=== PATIENT | female | born 1965 | race Caucasian/White ===

== ENCOUNTER 2016-06-16 13:42 | Inpatient (IN) | payer MEDICAID ==
[~2016-06-16] VITALS: Ht 162.6 cm; Wt 85.7 kg
[~2016-06-16 13:42] MED LIST: CHLO.12%30 SWISH-SPIT; CLIN150 PO; IBUP800T23 PO; MMW SWISH-SPIT
[2016-06-16 13:49] VITALS: BP 114/79; PULSE 97; RESP 16; TEMP 98.4; O2SAT 98
[2016-06-16] MEDS ORDERED: REGL10TA5 PO (14:05)
--- NOTE | 2016-06-16 14:09 | PD ---
HPI Chief Complaint: GI Complaint Time Seen by Provider: 13:52 Travel History International Travel<30 days: No Contact w/Intl Traveler<30days: No Traveled to known affect area: No History of Present Illness HPI The patient is a 50-year-old female who presents emergency department for constipation and blood in her stool. The patient states her symptoms started on Tuesday with nausea, vomiting, and one episode of hematemesis. The patient states she was evaluated at [facility] in [place], had laboratory evaluation which revealed a hemoglobin of "9 something ", the patient was discharged home and nausea medications. The patient was advised to follow-up with her primary physician. The patient does have a history of cirrhosis secondary to hepatitis C, underwent treatment for hepatitis C by her previous business machine operator, Dr. Nelson. The patient states she does have cirrhosis, does drink alcohol occasionally. She complains of decreased bowel movements over the last several days with a small moderate bright red blood in her stool. The patient also states she has a dry nonproductive cough and cold and flu symptoms over the last several days without any fever, chills, or sweats. The patient's symptoms are moderate, possibly exacerbated by history of cirrhosis, and there are no current alleviating factors. PFSH Past Medical History Anemia: Yes Arthritis: No Asthma: No Autoimmune Disease: No Blood Disorders: Yes (Thrombocytopenia) Anxiety: Yes Depression: Yes Heart Rhythm Problems: No Cancer: No Cardiovascular Problems: No High Cholesterol: No Chemotherapy: No Chest Pain: No Congestive Heart Failure: No Cirrhosis: Yes COPD: No Cerebrovascular Accident: No Diabetes: No Diminished Hearing: No Endocrine: No Gastrointestinal Disorders: Yes (Enlarged spleen, GI BLEED) GERD: Yes Glaucoma: No Genitourinary: Yes (Frequent UTI's) Headaches: Yes Hepatitis: Yes (C- tx w/ Nathalia) Hiatal Hernia: No Hypertension: Yes (During ) Immune Disorder: No Implanted Vascular Access Dvce: No Kidney Stones: Yes Musculoskeletal: Yes ("Injury" low back) Neurologic: No Psychiatric: Yes (Bipolar) Reproductive: No Respiratory: Yes (SMOKES 1/2 PPD) Immunizations Current: No Migraines: Yes Myocardial Infarction: No Radiation Therapy: Yes Renal Failure: No Seizures: No Sickle Cell Disease: No Sleep Apnea: No Thyroid Disease: No Ulcer: No PNEUMOCCOCAL Vaccine (Year): 1 ?: Not LMP: tubal Menopausal: Yes : 2 Tubal Ligation: Yes Past Surgical History Abdominal Surgery: Yes (CHOLECYSTECTOMY 2010) AICD: No Appendectomy: No Arteriovenous Shunt: No Cardiac Surgery: No Section: Yes (X's 2) Cholecystectomy: Yes Ear Surgery: No Endocrine Surgery: No Eye Surgery: No Genitourinary Surgery: No Gynecologic Surgery: Yes (C SECTION X2, TUBAL LIGATION) Insulin Pump: No Joint Replacement: No Neurologic Surgery: No Oral Surgery: Yes ([place] teeth) Pacemaker: No Thoracic Surgery: No Other Surgery: Yes (Banding for esophageal varices) Social History Alcohol Use: No (FORMER) Tobacco Use: Yes (1/2PPD) Substance Use: No (DENIES) Allergies-Medications (Allergen,Severity, Reaction): Coded Allergies: Penicillin (Verified Allergy, Severe, FEVER, 06/16/16) *MDRO Multi-Drug Resistant Organism (Unverified Adverse Reaction, Unknown , 06/16/16) MRSA Reported Meds & Prescriptions Reported Meds & Active Scripts Active Reported Reglan (Metoclopramide HCl) 10 Mg Tab 10 Mg PO QID Review of Systems Except as stated in HPI: all other systems reviewed are Neg General / Constitutional: No: Fever HENT: Positive: Congestion Cardiovascular: No: Chest Pain or Discomfort Respiratory: Positive: Cough, No: Shortness of Breath Gastrointestinal: Positive: Nausea, Vomiting (had vomiting on Tuesday which has resolved), Abdominal Pain, Hematemesis (once on Tuesday), Hematochezia, Constipation, Changes in Bowel Habits Musculoskeletal: No: Weakness Neurologic: No: Dizziness Physical Exam Narrative GENERAL: Awake, alert, nontoxic-appearing 50-year-old female who appears her stated age and is in no acute respiratory distress. SKIN: Warm and dry. HEAD: Atraumatic. Normocephalic. EYES: Pupils equal and round. Left subconjunctival hemorrhage noted. ENT: No nasal bleeding or discharge. Mucous membranes pink and moist. NECK: Trachea midline. No JVD. CARDIOVASCULAR: Regular rate and rhythm. No murmur appreciated. Heart rate in the 80s. RESPIRATORY: No accessory muscle use. Clear to auscultation. Breath sounds equal bilaterally. GASTROINTESTINAL: Abdomen soft, non-tender, nondistended. No rebound tenderness. Rectal: The exam was performed in the presence of a female nurse. No visible external hemorrhoids. No gross blood on digital exam, however, guaiac positive. MUSCULOSKELETAL: No obvious deformities. No clubbing. No cyanosis. No edema. NEUROLOGICAL: Awake and alert. No obvious cranial nerve deficits. Motor grossly within normal limits. Normal speech. PSYCHIATRIC: Appropriate mood and affect; insight and judgment normal. Data Data Last Documented VS Vital Signs Date Time Temp Pulse Resp B/P Pulse Ox O2 Delivery O2 Flow Rate FiO2 06/16/16 15:20 83 16 137/72 99 Room Air 06/16/16 13:49 98.4 Orders Complete Blood Count With Diff (06/16/16 14:02) Comprehensive Metabolic Panel (06/16/16 14:02) Prothrombin Time / Inr (Pt) (06/16/16 14:02) Act Partial Throm Time (Ptt) (06/16/16 14:02) Abdomen, Flat & Upright (06/16/16 ) Iv Access Insert/Monitor (06/16/16 14:02) Ecg Monitoring (06/16/16 14:02) Oximetry (06/16/16 14:02) Ondansetron Inj (Zofran Inj) (06/16/16 14:15) Sodium Chloride 0.9% Flush (Ns Flush) (06/16/16 14:15) Type And Screen (06/16/16 14:57) Pantoprazole Inj (Protonix Inj) (06/16/16 15:00) Consult Gastroenterology (06/16/16 ) Ns + Kcl 20 Meq Inj (Ns + Kcl 20 Meq Inj (06/16/16 15:15) Pantoprazole Inj (Protonix Inj) (06/16/16 16:30) (Hub Use Only)Inp Phy Cons/Ref (06/16/16 ) Admit Order (Ed Use Only) (06/16/16 15:35) Labs Laboratory Tests Test 06/16/16 14:25 White Blood Count 2.0 TH/MM3 Red Blood Count 3.66 MIL/MM3 Hemoglobin 8.3 GM/DL Hematocrit 25.7 % Mean Corpuscular Volume 70.2 FL Mean Corpuscular Hemoglobin 22.7 PG Mean Corpuscular Hemoglobin 32.4 % Concent Red Cell Distribution Width 19.3 % Platelet Count 66 TH/MM3 Mean Platelet Volume 9.6 FL Neutrophils (%) (Auto) 57.0 % Lymphocytes (%) (Auto) 20.7 % Monocytes (%) (Auto) 16.2 % Eosinophils (%) (Auto) 4.1 % Basophils (%) (Auto) 2.0 % Neutrophils # (Auto) 1.2 TH/MM3 Lymphocytes # (Auto) 0.4 TH/MM3 Monocytes # (Auto) 0.3 TH/MM3 Eosinophils # (Auto) 0.1 TH/MM3 Basophils # (Auto) 0.0 TH/MM3 CBC Comment AUTO DIFF Differential Total Cells 100 Counted Neutrophils % (Manual) 65 % Lymphocytes % 23 % Monocytes % 9 % Eosinophils % 2 % Basophils % 1 % Neutrophils # (Manual) 1.3 TH/MM3 Differential Comment FINAL DIFF MANUAL Platelet Estimate LOW Platelet Morphology Comment NORMAL Prothrombin Time 11.7 SEC Prothromb Time International 1.1 RATIO Ratio Activated Partial 28.7 SEC Thromboplast Time Sodium Level 141 MEQ/L Potassium Level 4.0 MEQ/L Chloride Level 110 MEQ/L Carbon Dioxide Level 21.8 MEQ/L Anion Gap 9 MEQ/L Blood Urea Nitrogen 11 MG/DL Creatinine 0.64 MG/DL Estimat Glomerular Filtration 98 ML/MIN Rate Random Glucose 107 MG/DL Calcium Level 7.7 MG/DL Total Bilirubin 0.5 MG/DL Aspartate Amino Transf 63 U/L (AST/SGOT) Alanine Aminotransferase 43 U/L (ALT/SGPT) Alkaline Phosphatase 87 U/L Total Protein 6.7 GM/DL Albumin 2.8 GM/DL [facility] Medical Decision Making Medical Screen Exam Complete: Yes Emergency Medical Condition: Yes Medical Record Reviewed: Yes Interpretation(s) Laboratory Tests Test 06/16/16 14:25 White Blood Count 2.0 TH/MM3 Red Blood Count 3.66 MIL/MM3 Hemoglobin 8.3 GM/DL Hematocrit 25.7 % Mean Corpuscular Volume 70.2 FL Mean Corpuscular Hemoglobin 22.7 PG Mean Corpuscular Hemoglobin 32.4 % Concent Red Cell Distribution Width 19.3 % Platelet Count 66 TH/MM3 Mean Platelet Volume 9.6 FL Neutrophils (%) (Auto) 57.0 % Lymphocytes (%) (Auto) 20.7 % Monocytes (%) (Auto) 16.2 % Eosinophils (%) (Auto) 4.1 % Basophils (%) (Auto) 2.0 % Neutrophils # (Auto) 1.2 TH/MM3 Lymphocytes # (Auto) 0.4 TH/MM3 Monocytes # (Auto) 0.3 TH/MM3 Eosinophils # (Auto) 0.1 TH/MM3 Basophils # (Auto) 0.0 TH/MM3 CBC Comment AUTO DIFF Prothrombin Time 11.7 SEC Prothromb Time International 1.1 RATIO Ratio Activated Partial 28.7 SEC Thromboplast Time Sodium Level 141 MEQ/L Potassium Level 4.0 MEQ/L Chloride Level 110 MEQ/L Carbon Dioxide Level 21.8 MEQ/L Anion Gap 9 MEQ/L Blood Urea Nitrogen 11 MG/DL Creatinine 0.64 MG/DL Estimat Glomerular Filtration 98 ML/MIN Rate Random Glucose 107 MG/DL Calcium Level 7.7 MG/DL Total Bilirubin 0.5 MG/DL Aspartate Amino Transf 63 U/L (AST/SGOT) Alanine Aminotransferase 43 U/L (ALT/SGPT) Alkaline Phosphatase 87 U/L Total Protein 6.7 GM/DL Albumin 2.8 GM/DL Last Impressions Abdomen X-Ray 06/16/16 0000 Signed Impressions: Service Date/Time: Thursday, June 16, 2016 14:12 - CONCLUSION: Benign abdomen with evidence of prior cholecystectomy and splenomegaly Richie Foster MD Differential Diagnosis Differential diagnosis includes upper GI bleed, lower GI bleed, diverticulosis, coagulopathy, internal hemorrhoids, external hemorrhoids, fissure, constipation. Narrative Course IV was established, labs were drawn and sent, and the patient was placed on cardiac telemetry monitoring and continuous pulse oximetry monitoring. The patient was administered Zofran intravenously. Flat and upright x-ray was ordered. I reviewed the patient's EMR, she does have a history of significant anemia in the past requiring transfusion, therefore, CBC was sent to lab. CBC reveals hemoglobin of 8.3 with MCV of 70, platelets are low at 66, white count is low at 2.0. May be secondary to cirrhosisend-stage liver disease, coags are normal. Therefore, type and screen was sent to lab. The patient states her hemoglobin was greater than 9 on Tuesday, is now 8.3 with active bleeding. Therefore, the on-call business machine operator was paged at 3:01 PM. The patient does have a history of varicosities with bleeds and previous banding in the past , EMR reveals Dr. Abdul was last patient to perform an anoscopy according to records at [facility]. The patient does state she underwent endoscopy and February 2016 at [facility], does not think she was banded at that time. The patient cannot recall the name of the business machine operator at that time. The patient's primary physician is Dr. Zheng Suarez, therefore, [facility] hour [facility]. I discussed the patient with Drs. Torres who agrees the patient should be admitted, and also requested the patient be transported to [facility] as the patient most likely will need endoscopy with her history of cirrhosis and varices with GI bleed. HemaPrompt Point of Care Internal Pos. & Neg. Controls: Passed Fecal Specimen Occult Blood: Positive Physician Communication Physician Communication [facility]. I discussed the patient Dr. Silvestre who agrees with admission. Diagnosis Primary Impression: GI bleed Qualified Code: K92.0 - Gastrointestinal hemorrhage with hematemesis Additional Impressions: Microcytic anemia Esophageal and gastric varicose veins Admitting Information Admitting Physician Requests: Admit Condition: Stable Mark Cruz MD Jun 16, 2016 14:09
[2016-06-16] MEDS ORDERED: SODIUM CHLORIDE 0.9% FLUSH 5 ML FLUSH IVF PRN (14:15)
[2016-06-16] MEDS ORDERED: ONDANSETRON HCL 4 MG/2 ML VIAL IVP ONE (14:15)
--- NOTE | 2016-06-16 14:22 | RADHPO ---
EXAM DATE/TIME: 06/16/2016 14:12 [facility] COMPARISON: CT ABDOMEN & PELVIS W CONTRAST, February 17, 2012, 21:34. INDICATIONS : Constipation and rectal bleeding. MEDICAL HISTORY : None. SURGICAL HISTORY : Cholecystectomy. section. ENCOUNTER: Initial ACUITY: 4 - 6 days PAIN SCORE: 6/10 LOCATION: Bilateral Abdominal FINDINGS: Supine and upright views of the abdomen were performed. The abdominal bowel gas pattern is normal. No air fluid levels are seen. No abnormal masses, calcifications, with prominence of the spleen cons istent with splenomegaly. The visualized lower lungs are clear. No evidence of free intraperitoneal gas. The osseous structures are unremarkable. Surgical clips in the right upper quadrant prior chol ecystectomy. CONCLUSION: Benign abdomen with evidence of prior cholecystectomy and splenomegaly Richie Foster MD on June 16, 2016 at 14:20 Board Certified Radiologist. This report was verified electronically.
[2016-06-16 14:25] VITALS: O2SAT 98
[2016-06-16 14:32] LABS: AUTOMATED NEUTROPHIL # 1.2 TH/MM3 (1.8-7.7); EOSINOPHIL # 0.1 TH/MM3 (0-0.4); EOSINOPHIL % 4.1 % (0.0-4.0); HEMATOCRIT 25.7 % (35.0-46.0); HEMO FLAGS AUTO DIFF; LYMPH % 20.7 % (9.0-44.0); LYMPHOCYTE # 0.4 TH/MM3 (1.0-4.8); MEAN CELL VOLUME 70.2 FL (80.0-100.0); MEAN CORPUSCULAR HEMOGLOBIN 22.7 PG (27.0-34.0); MEAN CORPUSCULAR HGB CONC 32.4 % (32.0-36.0); MONO % 16.2 % (0.0-8.0); PLATELET COUNT 66 TH/MM3 (150-450); RED BLOOD COUNT 3.66 MIL/MM3 (4.00-5.30); RED CELL DISTRIBUTION WIDTH 19.3 % (11.6-17.2)
[2016-06-16 14:39] LABS: CHLORIDE 110 MEQ/L (98-107); SODIUM (NA) 141 MEQ/L (136-145)
[2016-06-16 14:43] LABS: ANION GAP 9 MEQ/L (5-15); APTT (PATIENT) 28.7 SEC (24.3-30.1); BICARBONATE 21.8 MEQ/L (21.0-32.0); BLOOD UREA NITROGEN 11 MG/DL (7-18); INTERNATIONAL NORMALIZED RATIO 1.1 RATIO; PROTHROMBIN TIME - PATIENT 11.7 SEC (9.8-11.6)
[2016-06-16 14:46] LABS: ALT (GPT) 43 U/L (10-53); AST (GOT) 63 U/L (15-37); GLOMERULAR FILTRATION RATE 98 ML/MIN (>89)
[2016-06-16 14:47] LABS: TOTAL BILIRUBIN ADULT 0.5 MG/DL (0.2-1.0)
[2016-06-16 14:49] LABS: ALKALINE PHOSPHATASE 87 U/L (45-117)
[2016-06-16] MEDS ORDERED: PANTOPRAZOLE SODIUM 40 MG VIAL IV PUSH ONE (15:00)
[2016-06-16 15:02] LABS: BASOPHILS 1 % (0-2); EOSINOPHILS 2 % (0-4); NEUTROPHIL # MANUAL DIFF 1.3 TH/MM3 (1.8-7.7); POLYS (SEG NEUTROPHILS) 65 % (16-70); WBC DIFF SAMPLE 100
[2016-06-16 15:04] LABS: PLATELET ESTIMATE SMEAR LOW (NORMAL); PLATELET MORPHOLOGY NORMAL (NORMAL); SCAN/DIFF FINAL DIFF MANUAL
[2016-06-16 15:20] VITALS: BP 137/72; PULSE 83; RESP 16; O2SAT 99
[2016-06-16] MEDS: NS + KCL 20 MEQ INJ 1,000 ML IV SCH (15:26)
[2016-06-16] MEDS ORDERED: ONDANSETRON HCL 4 MG/2 ML VIAL IV PRN (15:45)
[2016-06-16] MEDS ORDERED: SODIUM CHLORIDE 0.9% FLUSH 5 ML FLUSH FLUSH PRN (15:45)
[2016-06-16] MEDS ORDERED: PANTOPRAZOLE INJ 80 MG in SODIUM CHLORIDE 0.9% INJ 100 ML IV SCH (16:30)
[2016-06-16 17:06] LABS: HEMATOCRIT 24.8 % (35.0-46.0)
[2016-06-16 17:09] LABS: REVIEW FLAG FINAL
[2016-06-16] MEDS: SODIUM CHLORIDE 0.9% FLUSH 5 ML FLUSH FLUSH SCH (19:32)
[2016-06-16 20:00] VITALS: BP 118/65; PULSE 84; RESP 18; TEMP 98; O2SAT 99
[2016-06-16] MEDS: MORPHINE SULFATE 4 MG/ML INJ IV PUSH PRN ×2 (20:08→23:04)
--- NOTE | 2016-06-16 22:05 | HHI.HP ---
[facility] Rossy Suarez MD Admission Diagnosis GI bleed, microcytic anemia, esophageal varices Diagnoses: Chief Complaint: bleeding Travel History International Travel<30 Days: No Contact w/Intl Traveler <30 Da: No Traveled to Known Affected Are: No History of Present Illness History from patient, ER physician notes, and review of medical records. Patient reported that starting Tuesday, she was feeling constipated. This was then followed by feeling of some upset stomach which led to her having nausea and vomiting on Tuesday. She states that she has history of variceal bleeds and she knew immediately when she vomited and that she was having blood in her vomitus. It was somewhat brownish reddish in color. Not exactly coffee ground color. She presented to [facility] at that time and was discharged from the ER because her hemoglobin was apparently stable. She then continued to have this feeling of vomiting and upset stomach. She states she knew the symptoms that has because she was having the cirrhosis with variceal bleed previously for several times. The day before yesterday, Tuesday, she started taking lactulose because she was not moving her bowels and she was also starting to feel somewhat drowsy and having trouble thinking and making sentences. She states she therefore started getting bowel movement on that day. Her bowel movement was black in color. She then had a few more episodes. The patient was in her bathroom actually at the time of my arrival to her bedside. She did move her bowels at that time and she did have black stool during her bowel movement. Although it is somewhat small. Patient states Review of Systems Other 12 point ROS done and negative apart from what is mentioned in HPI Past Family Social History Past Medical History Hepatitis Cwas treated. Stated that she had to stop her treatment in the middle due to being tested positive for marijuana. Liver cirrhosissecondary to above Varices/portal hypertension History of hepatic encephalopathy Past Surgical History EGDs and colonoscopies Reported Medications Patient's medications listed in EMR and is reviewed. Allergies: Coded Allergies: Penicillin (Verified Allergy, Severe, FEVER, 06/16/16) *MDRO Multi-Drug Resistant Organism (Unverified Adverse Reaction, Unknown , 06/16/16) MRSA Family History Denies family history of any medical issues. Social History Stated she quit smoking a few months ago but picked it up again. Currently smokes about 10 cigarettes a day. Denies any alcohol abuse. Currently drinks about 2 beers every twice a week. Physical Exam Vital Signs Vital Signs Date Time Temp Pulse Resp B/P Pulse Ox O2 Delivery O2 Flow Rate FiO2 06/16/16 20:00 98.0 84 18 118/65 99 06/16/16 15:20 83 16 137/72 99 Room Air 06/16/16 14:25 98 Room Air 06/16/16 13:49 98.4 97 16 114/79 98 Physical Exam GENERAL: This is a well-nourished, well-developed patient, in no apparent distress. SKIN: No rashes, ecchymoses or lesions. Cool and dry. HEAD: Atraumatic. Normocephalic. No temporal or scalp tenderness. EYES: PNo scleral icterus. No injection or drainage. ENT: Nose without bleeding, purulent drainage or septal hematoma. Airway patent. NECK: Trachea midline. No JVD CARDIOVASCULAR: Regular rate and rhythm without murmurs, gallops, or rubs. RESPIRATORY: Clear to auscultation. Breath sounds equal bilaterally. No wheezes , rales, or rhonchi. GASTROINTESTINAL: Abdomen soft, non-tender, nondistended. No guarding. MUSCULOSKELETAL: no calf asymmetry or edema NEUROLOGICAL: Awake and alert.Motor and sensory grossly within normal limits.Normal speech. Laboratory Laboratory Tests Test 06/16/16 06/16/16 14:25 17:00 White Blood Count 2.0 Red Blood Count 3.66 Hemoglobin 8.3 8.1 Hematocrit 25.7 24.8 Mean Corpuscular Volume 70.2 Mean Corpuscular Hemoglobin 22.7 Mean Corpuscular Hemoglobin 32.4 Concent Red Cell Distribution Width 19.3 Platelet Count 66 Mean Platelet Volume 9.6 Neutrophils (%) (Auto) 57.0 Lymphocytes (%) (Auto) 20.7 Monocytes (%) (Auto) 16.2 Eosinophils (%) (Auto) 4.1 Basophils (%) (Auto) 2.0 Neutrophils # (Auto) 1.2 Lymphocytes # (Auto) 0.4 Monocytes # (Auto) 0.3 Eosinophils # (Auto) 0.1 Basophils # (Auto) 0.0 CBC Comment AUTO DIFF Differential Total Cells 100 Counted Neutrophils % (Manual) 65 Lymphocytes % 23 Monocytes % 9 Eosinophils % 2 Basophils % 1 Neutrophils # (Manual) 1.3 Differential Comment FINAL DIFF MANUAL Platelet Estimate LOW Platelet Morphology Comment NORMAL Prothrombin Time 11.7 Prothromb Time International 1.1 Ratio Activated Partial 28.7 Thromboplast Time Sodium Level 141 Potassium Level 4.0 Chloride Level 110 Carbon Dioxide Level 21.8 Anion Gap 9 Blood Urea Nitrogen 11 Creatinine 0.64 Estimat Glomerular Filtration 98 Rate Random Glucose 107 Calcium Level 7.7 Total Bilirubin 0.5 Aspartate Amino Transf 63 (AST/SGOT) Alanine Aminotransferase 43 (ALT/SGPT) Alkaline Phosphatase 87 Total Protein 6.7 Albumin 2.8 Blood Type A POSITIVE Antibody Screen NEGATIVE Result Diagram: 06/16/16 1700 06/16/16 1425 Imaging Last 48 hours Impressions Abdomen X-Ray 06/16/16 0000 Signed Impressions: Service Date/Time: Thursday, June 16, 2016 14:12 - CONCLUSION: Benign abdomen with evidence of prior cholecystectomy and splenomegaly Richie Foster MD Assessment and Plan Assessment and Plan Impression: Upper GI bleedlikely variceal bleed Symptomatic anemia Plan: Serial hemoglobin and hematocrit. Although hemoglobin is at 8.1, patient baseline is around 11-13. Therefore transfused 2 units of PRBC now. GI consult. Start patient on rifaximin since she is also complaining of mental confusion and difficulty concentration. She states lactulose is not effective for her. But that usually rifaximin works. Start her back on her home medications which include beta moe, and pain medicine. Discussed Condition With Patient, patient's nurse Physician Certification 2 Midnight Certification Type: Admission for Inpatient Services Order for Inpatient Services The services are ordered in accordance with Medicare regulations or non- Medicare payer requirements, as applicable. In the case of services not specified as inpatient-only, they are appropriately provided as inpatient services in accordance with the 2-midnight benchmark. Estimated LOS (days): 2 days is the estimated time the patient will need to remain in the hospital, assuming treatment plan goals are met and no additional complications. Post-Hospital Plan: Home Health Julieth Lopez MD Jun 16, 2016 22:05
[2016-06-16] MEDS ORDERED: OCTREOTIDE INJ 50 MCG/ML AMP IV ONE (22:15)
[2016-06-17] VITALS (10 sets, daily range): BP systolic 118–151; BP diastolic 67–91; PULSE 61–103; RESP 16–20; TEMP 96.2–99.5; O2SAT 95–100
[2016-06-17] MEDS: PANTOPRAZOLE INJ 80 MG in SODIUM CHLORIDE 0.9% INJ 100 ML IV SCH ×3 (00:05→22:00)
[2016-06-17] MEDS: OCTREOTIDE INJ 500 MCG in SODIUM CHLORID 0.9% 500 ML INJ 499.5 ML IV SCH ×3 (00:05→20:15)
[2016-06-17 01:17] LABS: HEMATOCRIT 30.1 % (35.0-46.0)
[2016-06-17 01:19] LABS: REVIEW FLAG FINAL
[2016-06-17] MEDS: MORPHINE SULFATE 4 MG/ML INJ IV PUSH PRN ×7 (01:52→20:36)
[2016-06-17] MEDS: NS + KCL 20 MEQ INJ 1,000 ML IV SCH ×2 (03:53→17:18)
[2016-06-17] MEDS: RIFAXIMIN 200 MG TAB PO SCH ×3 (05:00→22:01)
[2016-06-17] MEDS: PROPRANOLOL HCL 10 MG TAB PO SCH ×3 (05:00→22:01)
[2016-06-17 08:09] LABS: HEMATOCRIT 28.9 % (35.0-46.0)
[2016-06-17] MEDS: SODIUM CHLORIDE 0.9% FLUSH 5 ML FLUSH FLUSH SCH ×2 (09:00→20:34)
[2016-06-17 11:28] LABS: HEMATOCRIT 29.5 % (35.0-46.0)
[2016-06-17 11:30] LABS: REVIEW FLAG FINAL
--- NOTE | 2016-06-17 12:29 | PD.CONS ---
HPI History of Present Illness This is a 50 year old female patient with a hx of Hepatitis C, Liver cirrhosis, splenomegaly, alcohol abuse, esophageal varices, gastroparesis, and chronic anemia who came to the emergency room for evaluation of GI bleeding. The patient reports that she had an upper respiratory infection over the weekend and had a severe headache and therefore went to [facility] for evaluation and treatment. She reports that she was evaluated in the ER and while she was in the hospital had an episode of hematemesis consisting of a very small amount of dark emesis. She reports that they checked her blood work and was stable and therefore she was discharged home. She reports that she continued to have the headache and therefore took 6 ibuprofen and was having abdominal discomfort from constipation, stating that she had not had a bowel movement in 5 days. On Tuesday she took a dose of lactulose and reports that she had a small amount of black tarry stool. She reports that she return to [facility] complaining of GI bleeding, better hemoglobin remained stable and therefore she was discharged home from the ER. She has not had any vomiting since Tuesday while she was in the ER and reports that she has not had a bowel movement since Tuesday. She does have constant abdominal pain in her epigastric area that radiates to the right upper quadrant that she describes as a constant dull ache. This is aggravated by any by po mouth intake, but also states that it is made worse by no by mouth intake. She states she is having significant discomfort right now because she has not had anything to eat since yesterday and is requesting a diet. She reports that she cannot move her bowels until she has a bowel movement. She is not taking any regular GI meds at home. She tells me that she just switched doctors and had an appointment today to see him to get back on her medications but has not had a chance to do so yet. She continues to drink alcohol and reports that she last had alcohol about 2 weeks ago. She has been seen by our practice in the past and was started on Harvoni for her hepatitis C in 2014, but was taken off of this when her drug screen came back positive for cocaine. Her last EGD was (04/03/15) and this revealed esophagitis and gastritis. Pathology revealed mild acute duodenitis with focal villous blunting in regenerative epithelial changes negative for H. pylori mild chronic gastritis Colonoscopy (08/08/14) revealed diverticulosis in sigmoid and descending colon, diminutive polyp hepatic flexure, 6 mm cold biopsy with complete removal was performed retroflexed views revealed internal hemorrhoids prep was good. Pathology revealed a tubular adenoma (Dianne Whittaker) PFSH Past Medical History Liver cirrhosis secondary to alcohol abuse and hepatitis C Chronic hepatitis C (patient was started on Harvoni, that was stopped after testing positive for cocaine) Esophageal varices Gastroparesis Chronic anemia Pancytopenia Splenomegaly Gastritis and esophagitis Iron deficiency anemia History of peptic ulcer disease History of ascites Hypertension Migraine headaches History of cholelithiasis History of hepatic encephalopathy Past Surgical History EGDs and colonoscopies Tubal ligation Liver biopsy (Dianne Whittaker) Coded Allergies: Penicillin (Verified Allergy, Severe, FEVER, 06/16/16) *MDRO Multi-Drug Resistant Organism (Verified Adverse Reaction, Unknown, ) MRSA (leg) - 08/20/08 MRSA PCR Screen POSITIVE - 06/17/2016 Medications Allergies Coded Allergies Type Severity Reaction Last Updated Verified Penicillin Allergy Severe FEVER 06/16/16 Yes *MDRO Multi-Drug Resistant Organism Adverse Reaction Unknown 06/17/16 No Active Scripts Medications Dose Route/Sig Days Date Category Reglan (Metoclopramide HCl) 10 Mg Tab 10 Mg PO QID 06/16/16 Reported Family History Denies family history of any medical issues. Social History Stated she quit smoking a few months ago but picked it up again. Currently smokes about 10 cigarettes a day. Currently drinks about 2 beers every twice a week. (Dianne Whittaker) Review of Systems Constitutional: COMPLAINS OF: Fatigue Respiratory: DENIES: Cough Cardiovascular: DENIES: Chest pain Gastrointestinal: COMPLAINS OF: Abdominal pain, Black stools, Constipation, Nausea, Vomiting (on Tuesday), Hematemesis, DENIES: Heartburn Musculoskeletal: COMPLAINS OF: Joint pain, Back pain Integumentary: DENIES: Abnormal pigmentation Hematologic/lymphatic: COMPLAINS OF: Bruising Neurologic: COMPLAINS OF: Headache Psychiatric: DENIES: Confusion (Dianne Whittaker) GI Exam Vitals I&O Vital Signs Date Time Temp Pulse Resp B/P Pulse Ox O2 Delivery O2 Flow Rate FiO2 06/17/16 08:00 98.0 75 16 130/82 95 06/17/16 07:56 20 06/17/16 05:45 99.2 81 16 120/68 97 06/17/16 03:30 99.5 82 16 118/77 97 06/17/16 01:45 98.9 84 16 119/67 97 06/17/16 01:20 99.3 93 16 122/74 98 06/17/16 00:00 97.0 103 16 128/77 100 06/16/16 20:00 98.0 84 18 118/65 99 06/16/16 15:20 83 16 137/72 99 Room Air 06/16/16 14:25 98 Room Air 06/16/16 13:49 98.4 97 16 114/79 98 I/O 06/16/16 06/16/16 06/16/16 06/17/16 06/17/16 06/17/16 07:00 15:00 23:00 07:00 15:00 23:00 Intake Total 660 ml 1200 ml Balance 660 ml 1200 ml Intake Oral 360 ml IV Total 300 ml 600 ml Packed Cells 600 ml # Voids 6 3 # Bowel Movements 1 0 Imaging Last Impressions Abdomen X-Ray 06/16/16 0000 Signed Impressions: Service Date/Time: Thursday, June 16, 2016 14:12 - CONCLUSION: Benign abdomen with evidence of prior cholecystectomy and splenomegaly Richie Foster MD Laboratory Test 06/16/16 06/16/16 06/16/16 06/17/16 14:25 17:00 22:13 00:50 White Blood Count 2.0 TH/MM3 Red Blood Count 3.66 MIL/MM3 Hemoglobin 8.3 GM/DL 8.1 GM/DL 9.3 GM/DL Hematocrit 25.7 % 24.8 % 30.1 % Mean Corpuscular Volume 70.2 FL Mean Corpuscular Hemoglobin 22.7 PG Mean Corpuscular Hemoglobin 32.4 % Concent Red Cell Distribution Width 19.3 % Platelet Count 66 TH/MM3 Mean Platelet Volume 9.6 FL Neutrophils (%) (Auto) 57.0 % Lymphocytes (%) (Auto) 20.7 % Monocytes (%) (Auto) 16.2 % Eosinophils (%) (Auto) 4.1 % Basophils (%) (Auto) 2.0 % Neutrophils # (Auto) 1.2 TH/MM3 Lymphocytes # (Auto) 0.4 TH/MM3 Monocytes # (Auto) 0.3 TH/MM3 Eosinophils # (Auto) 0.1 TH/MM3 Basophils # (Auto) 0.0 TH/MM3 CBC Comment AUTO DIFF Differential Total Cells 100 Counted Neutrophils % (Manual) 65 % Lymphocytes % 23 % Monocytes % 9 % Eosinophils % 2 % Basophils % 1 % Neutrophils # (Manual) 1.3 TH/MM3 Differential Comment FINAL DIFF MANUAL Platelet Estimate LOW Platelet Morphology Comment NORMAL Prothrombin Time 11.7 SEC Prothromb Time International 1.1 RATIO Ratio Activated Partial 28.7 SEC Thromboplast Time Sodium Level 141 MEQ/L Potassium Level 4.0 MEQ/L Chloride Level 110 MEQ/L Carbon Dioxide Level 21.8 MEQ/L Anion Gap 9 MEQ/L Blood Urea Nitrogen 11 MG/DL Creatinine 0.64 MG/DL Estimat Glomerular Filtration 98 ML/MIN Rate Random Glucose 107 MG/DL Calcium Level 7.7 MG/DL Total Bilirubin 0.5 MG/DL Aspartate Amino Transf 63 U/L (AST/SGOT) Alanine Aminotransferase 43 U/L (ALT/SGPT) Alkaline Phosphatase 87 U/L Total Protein 6.7 GM/DL Albumin 2.8 GM/DL Blood Type A POSITIVE Antibody Screen NEGATIVE Crossmatch Leukocyte-Reduced Red Blood Cells Blood Bank Comment Test 06/17/16 06/17/16 07:40 11:15 Hemoglobin 9.4 GM/DL 9.5 GM/DL Hematocrit 28.9 % 29.5 % Physical Examination HEENT: Normocephalic; atraumatic; no jaundice. Throat is clear. NECK: Neck is supple, no JVD, no lymphadenopathy. CHEST: CTA CARDIAC: RRR ABDOMEN: Soft, nondistended, nontender; hepatosplenomegaly; bowel sounds are present in all four quadrants. EXTREMITIES: No clubbing, cyanosis, or edema. SKIN: Normal; no rash; no jaundice. GAMING SURVEILLANCE OBSERVER: No focal deficits; alert and oriented times three. (Dianne Whittaker) Assessment and Plan Plan ASSESSMENT: - Reported GI Bleeding with one episode of dark emesis, small amount on Tuesday and one episode of small amount black stool on Tuesday. She was evaluated at [facility] in the ER on Tuesday and also a few days ago. She reports that she was discharged home because her hemoglobin was stable. She has not had any further vomiting or bowel movements since that time. However she called 911 because she states that she knew she was having GI bleeding and needed to be evaluated. Patient is currently upset because she has not had anything to eat and she feels that this is making her abdominal pain worse. She would like her procedure done as soon as possible. We will give her a clear liquid lunch and she needs to be nothing by mouth right after that and we'll schedule her EGD for this afternoon. Her last EGD was (04/03/15) and this revealed esophagitis and gastritis. Pathology revealed mild acute duodenitis with focal villous blunting in regenerative epithelial changes negative for H. pylori mild chronic gastritis Colonoscopy (08/08/14) revealed diverticulosis in sigmoid and descending colon, diminutive polyp hepatic flexure, 6 mm cold biopsy with complete removal was performed retroflexed views revealed internal hemorrhoids prep was good. Pathology revealed a tubular adenomaHer HH is stable. She is on Protonix and Octreotide Gtt. (+) 6 ibuprofen on Tuesday. Continues to drink. Not taking meds regularly at home. - Anemia. Pt with chronic iron deficiency anemia. Her H&H has remained stable and is 9.5/29.5. - Abdominal pain. Pt has hx of GERD, Gastroparesis. Noncompliant with treatment - Liver cirrhosis secondary to hepatitis C and alcohol abuse. She continues to drink alcohol. She was started on treatment with Harvoni in 2014 but this was stopped after her tox screen LFTs stable. PLAN: - Plan for egd with possible band ligation today - Obtain consents - Clear liquid lunch and then NPO right after- d/w nurse that this will have to be given right away and made NPO immediately after in order to schedule EGD today. - NPO after lunch - Protonix/Octreotide gtt - Monitor HH - Transfuse as necessary - Supportive care - Further recommendations to follow based on results of above - PT seen and examined by Dr. Abdul and myself and this note is written on her behalf (Dianne Whittaker) Physician Comments seen, examined agree with above (Loan Abdul MD) Dianne Whittaker Jun 17, 2016 12:29 Loan Abdul MD Jun 17, 2016 16:57
--- NOTE | 2016-06-17 13:06 | HHI.PR ---
Subjective Remarks resting comfortably with no distress. had mild rectal bleed last night. no abdominal pain, chest pain or sob. Objective Vitals Vital Signs Date Time Temp Pulse Resp B/P Pulse Ox O2 Delivery O2 Flow Rate FiO2 06/17/16 12:00 97.1 79 17 137/88 98 06/17/16 08:00 98.0 75 16 130/82 95 06/17/16 07:56 20 06/17/16 05:45 99.2 81 16 120/68 97 06/17/16 03:30 99.5 82 16 118/77 97 06/17/16 01:45 98.9 84 16 119/67 97 06/17/16 01:20 99.3 93 16 122/74 98 06/17/16 00:00 97.0 103 16 128/77 100 06/16/16 20:00 98.0 84 18 118/65 99 06/16/16 15:20 83 16 137/72 99 Room Air 06/16/16 14:25 98 Room Air 06/16/16 13:49 98.4 97 16 114/79 98 I/O 06/16/16 06/16/16 06/16/16 06/17/16 06/17/16 06/17/16 07:00 15:00 23:00 07:00 15:00 23:00 Intake Total 660 ml 1200 ml Balance 660 ml 1200 ml Intake Oral 360 ml IV Total 300 ml 600 ml Packed Cells 600 ml # Voids 6 3 # Bowel Movements 1 0 Result Diagram: 06/17/16 1115 06/16/16 1425 Imaging Last Impressions Abdomen X-Ray 06/16/16 0000 Signed Impressions: Service Date/Time: Thursday, June 16, 2016 14:12 - CONCLUSION: Benign abdomen with evidence of prior cholecystectomy and splenomegaly Richie Foster MD Objective Remarks GENERAL: This is a well-nourished, well-developed patient, in no apparent distress. CARDIOVASCULAR: Regular rate and regular rhythm without murmurs, gallops, or rubs. RESPIRATORY: Clear to auscultation. Breath sounds equal bilaterally. No wheezes , rales, or rhonchi. GASTROINTESTINAL: Abdomen soft, non-tender, nondistended. Normal, active bowel sounds MUSCULOSKELETAL: Extremities without clubbing, cyanosis, or edema. NEURO: Alert & Oriented x4 to person, place, time, situation. Moves all ext x4 Procedures none Medications and IVs Current Medications Ondansetron HCl (Zofran Inj) 4 mg ONCE ONCE IVP Last administered on 14:30; Start 06/16/16 at 14:15; Stop 06/16/16 at 14:16; Status DC IV Flush (NS Flush) 2 ml UNSCH PRN IVF FLUSH AFTER USING IV ACCESS; Start 06/16 at 14:15; Stop 06/16/16 at 16:03; Status DC Pantoprazole Sodium 40 mg 40 mg ONCE ONCE IV PUSH Last administered on 15:03; Start 06/16/16 at 15:00; Stop 06/16/16 at 15:01; Status DC Potassium Chloride/Sodium Chloride 1,000 ml @ 84 mls/hr [id number] IV Last administered on 06/17/16 03:53; Start 06/16/16 at 15:15 Pantoprazole Sodium/Sodium Chloride (Protonix Inj/NS Inj) 100 ml @ 10 mls/hr Q10H IV Last administered on 06/16/16 15:36; Start 06/16/16 at 16:30; Stop at 16:30; Status DC IV Flush (NS Flush) 2 ml UNSCH PRN FLUSH FLUSH AFTER USING IV ACCESS; Start at 15:45 IV Flush 2 ml 2 ml BID FLUSH ; Start 06/16/16 at 21:00 Pantoprazole Sodium/Sodium Chloride (Protonix Inj/NS Inj) 100 ml @ 10 mls/hr Q10H IV Last administered on 06/17/16 10:33; Start 06/17/16 at 02:00 Ondansetron HCl (Zofran Inj) 4 mg Q6H PRN IV NAUSEA OR VOMITING; Start at 15:45 Morphine Sulfate (Morphine Inj) 2 mg Q3H PRN IV PUSH pain >5 Last administered on 06/17/16 11:02; Start 06/16/16 at 20:00 Octreotide Acetate 50 mcg 50 mcg ONCE ONCE IV Last administered on 06/16/16 23:05; Start 06/16/16 at 22:15; Stop 06/16/16 at 22:20; Status DC Octreotide Acetate/Sodium Chloride (SandoSTATIN INJ/ NS 500 ml Inj) 500.0 ml @ 50 mls/hr Q10H IV Last administered on 06/17/16 10:33; Start 06/17/16 at 00:15 Rifaximin (Xifaxan) 400 mg Q8HR PO Last administered on 06/17/16 12:36; Start 06/17/16 at 06:00 Propranolol HCl (Inderal) 10 mg Q8HR PO Last administered on 06/17/16 12:36; Start 06/17/16 at 06:00 A/P Assessment and Plan A/P Upper GI bleedlikely variceal bleed with history of cirrhosis continue with PPI and Octreotide- GI consulted and plan for EGD and possible banding today. Symptomatic anemia transfused with PRBC- will continue to monitor H/H and transfuse as needed Jose Luis Hicks MD Jun 17, 2016 13:06
[2016-06-17] MEDS: ALPRAZolam 0.25 MG TAB PO PRN ×2 (13:54→23:22)
[2016-06-17] MEDS ORDERED: PROPOFOL 200 MG/20 ML AMP IV ONE (16:28)
[2016-06-17] MEDS ORDERED: PEG (High)/E-LYTE SOLN 4000 ML BTL PO ONE (17:00)
[2016-06-17] MEDS ORDERED: DIATRIZOATE MEGLUM/DIATRIZOATE SOD 9 ML CUP PO ONE (19:15)
[2016-06-17 19:53] LABS: HEMATOCRIT 35.9 % (35.0-46.0)
[2016-06-17 19:54] LABS: REVIEW FLAG FINAL
[2016-06-18] VITALS: BP 130/82; PULSE 65; RESP 20; TEMP 96.5; O2SAT 97
[2016-06-18] MEDS: MORPHINE SULFATE 4 MG/ML INJ IV PUSH PRN ×3 (01:22→08:14)
[2016-06-18 01:50] LABS: HEMATOCRIT 34.3 % (35.0-46.0)
[2016-06-18] MEDS ORDERED: IOHEXOL 350 MG/ML 10 ML VIAL (for RAD DIAG) IV ONE (01:51)
[2016-06-18 01:53] LABS: REVIEW FLAG FINAL
--- NOTE | 2016-06-18 02:04 | RADRPT ---
EXAM DATE/TIME: 06/18/2016 01:37 [facility] COMPARISON: CT ABDOMEN & PELVIS W CONTRAST, February 17, 2012, 21:34. INDICATIONS : Abdominal pain. IV CONTRAST: 100 cc Omnipaque 350 (iohexol) IV ORAL CONTRAST: Prescribed oral contrast ingested. RADIATION DOSE: 10.89 CTDIvol (mGy) MEDICAL HISTORY : Hypertension. Splenomegaly. SURGICAL HISTORY : None. ENCOUNTER: Initial ACUITY: 1 day PAIN SCALE: 5/10 LOCATION: abdomen TECHNIQUE: Volumetric scanning of the abdomen and pelvis was performed. Using automated exposure control and ad justment of the mA and/or kV according to patient size, radiation dose was kept as low as reasonably achievable to obtain optimal diagnostic quality images. FINDINGS: Cirrhotic appearing liver is noted with marked splenomegaly measuring 21 cm AP dimension. The portal vein is dilated with peripheral calcification. Pancreas, adrenal glands, bilateral kidneys are normal in appearance. Urinary bladder, uterus and adnexa are unremarkable. No evidence for bowel obstructio n. No aneurysm. No adenopathy. The patient is status post cholecystectomy. There is a filling defect within the superior mesenteric vein but represent thrombus. There is peripheral calcification suggest ing this is a chronic finding. There is no definite bowel wall thickening to suggest an acute process . This is best seen on coronal image 52. Lung bases are clear. Osseous structures are intact. CONCLUSION: 1. Cirrhosis and portal hypertension. 2. 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 Sj Bowser MD on June 18, 2016 at 1:57 Board Certified Radiologist. This report was verified electronically.
[2016-06-18] MEDS: NS + KCL 20 MEQ INJ 1,000 ML IV SCH (03:00)
[2016-06-18] MEDS: PROPRANOLOL HCL 10 MG TAB PO SCH ×2 (04:36→15:13)
[2016-06-18] MEDS: RIFAXIMIN 200 MG TAB PO SCH ×2 (04:36→15:13)
[2016-06-18] MEDS ORDERED: LACTATED RINGER'S 1000 ML IV SCH (06:45)
[2016-06-18] MEDS: ALPRAZolam 0.25 MG TAB PO PRN (07:44)
[2016-06-18] MEDS: OCTREOTIDE INJ 500 MCG in SODIUM CHLORID 0.9% 500 ML INJ 499.5 ML IV SCH (07:47)
[2016-06-18] MEDS: PANTOPRAZOLE INJ 80 MG in SODIUM CHLORIDE 0.9% INJ 100 ML IV SCH (07:48)
[2016-06-18] MEDS: SODIUM CHLORIDE 0.9% FLUSH 5 ML FLUSH FLUSH SCH (07:49)
[2016-06-18 08:00] VITALS: BP 128/85; PULSE 64; RESP 17; TEMP 96.3; O2SAT 98
--- NOTE | 2016-06-18 08:45 | HHI.PR ---
Subjective Remarks resting comfortably with no distress. denies abdominal pain or nausea. had some dark stool earlier. d/w the RN. Objective Vitals Vital Signs Date Time Temp Pulse Resp B/P Pulse Ox O2 Delivery O2 Flow Rate FiO2 06/18/16 00:00 96.5 65 20 130/82 97 06/17/16 20:00 96.2 61 20 151/87 100 06/17/16 16:55 69 16 140/90 96 06/17/16 16:45 65 16 142/92 96 06/17/16 16:36 98.4 67 16 143/93 96 06/17/16 16:00 97.8 73 16 142/91 98 06/17/16 15:23 97.8 73 16 142/91 98 06/17/16 14:36 20 06/17/16 12:00 97.1 79 17 137/88 98 I/O 06/17/16 06/17/16 06/17/16 06/18/16 06/18/16 06/18/16 07:00 15:00 23:00 07:00 15:00 23:00 Intake Total 1200 ml 1700 ml 530 ml 600 ml Balance 1200 ml 1700 ml 530 ml 600 ml Intake Oral 750 ml 480 ml 0 ml IV Total 600 ml 950 ml 600 ml Packed Cells 600 ml Other 50 ml # Voids 3 10 2 5 # Bowel Movements 0 0 3 5 Result Diagram: 06/18/16 0119 06/16/16 1425 Imaging Last Impressions Abdomen/Pelvis CT 06/17/16 0000 Signed Impressions: Service Date/Time: Saturday, June 18, 2016 01:37 - CONCLUSION: 1. Cirrhosis and portal hypertension. 2. 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 Sj Bowser MD Abdomen X-Ray 06/16/16 0000 Signed Impressions: Service Date/Time: Thursday, June 16, 2016 14:12 - CONCLUSION: Benign abdomen with evidence of prior cholecystectomy and splenomegaly Richie Foster MD Objective Remarks GENERAL: This is a well-nourished, well-developed patient, in no apparent distress. CARDIOVASCULAR: Regular rate and regular rhythm without murmurs, gallops, or rubs. RESPIRATORY: Clear to auscultation. Breath sounds equal bilaterally. No wheezes , rales, or rhonchi. GASTROINTESTINAL: Abdomen soft, non-tender, nondistended. Normal, active bowel sounds MUSCULOSKELETAL: Extremities without clubbing, cyanosis, or edema. NEURO: Alert & Oriented x4 to person, place, time, situation. Moves all ext x4 Procedures EGD Medications and IVs Current Medications Ondansetron HCl (Zofran Inj) 4 mg ONCE ONCE IVP Last administered on 14:30; Start 06/16/16 at 14:15; Stop 06/16/16 at 14:16; Status DC IV Flush (NS Flush) 2 ml UNSCH PRN IVF FLUSH AFTER USING IV ACCESS; Start 06/16 at 14:15; Stop 06/16/16 at 16:03; Status DC Pantoprazole Sodium 40 mg 40 mg ONCE ONCE IV PUSH Last administered on 15:03; Start 06/16/16 at 15:00; Stop 06/16/16 at 15:01; Status DC Potassium Chloride/Sodium Chloride 1,000 ml @ 84 mls/hr [id number] IV Last administered on 06/17/16 17:18; Start 06/16/16 at 15:15 Pantoprazole Sodium/Sodium Chloride (Protonix Inj/NS Inj) 100 ml @ 10 mls/hr Q10H IV Last administered on 06/16/16 15:36; Start 06/16/16 at 16:30; Stop at 16:30; Status DC IV Flush (NS Flush) 2 ml UNSCH PRN FLUSH FLUSH AFTER USING IV ACCESS; Start at 15:45 IV Flush 2 ml 2 ml BID FLUSH Last administered on 06/18/16 07:49; Start at 21:00 Pantoprazole Sodium/Sodium Chloride (Protonix Inj/NS Inj) 100 ml @ 10 mls/hr Q10H IV Last administered on 06/18/16 07:48; Start 06/17/16 at 02:00 Ondansetron HCl (Zofran Inj) 4 mg Q6H PRN IV NAUSEA OR VOMITING; Start at 15:45 Morphine Sulfate (Morphine Inj) 2 mg Q3H PRN IV PUSH pain >5 Last administered on 06/18/16 08:14; Start 06/16/16 at 20:00 Octreotide Acetate 50 mcg 50 mcg ONCE ONCE IV Last administered on 06/16/16 23:05; Start 06/16/16 at 22:15; Stop 06/16/16 at 22:20; Status DC Octreotide Acetate/Sodium Chloride (SandoSTATIN INJ/ NS 500 ml Inj) 500.0 ml @ 50 mls/hr Q10H IV Last administered on 06/18/16 07:47; Start 06/17/16 at 00:15 Rifaximin (Xifaxan) 400 mg Q8HR PO Last administered on 06/18/16 04:36; Start 06/17/16 at 06:00 Propranolol HCl (Inderal) 10 mg Q8HR PO Last administered on 06/18/16 04:36; Start 06/17/16 at 06:00 Alprazolam (Xanax) 0.25 mg Q8H PRN PO ANXIETY Last administered on 06/18/16 07 :44; Start 06/17/16 at 13:45 Propofol (Diprivan 200 Mg/20 ml Inj) 100 mg STK-MED ONCE IV ; Start 06/17/16 at 16:28; Stop 06/17/16 at 16:40; Status DC Polyethylene Glycol/ Electrolytes (Colyte Liq) 4,000 ml ONCE ONCE PO Last administered on 06/17/16 17:18; Start 06/17/16 at 17:00; Stop 06/17/16 at 17:01 ; Status DC Diatrizoate Meglum/ Diatrizoate Sod ( Gastroview Liq) 18 ml NOW ONCE PO Last administered on 06/17/16 20:34; Start 06/17/16 at 19:15; Stop 06/17/16 at 19:16; Status DC Iohexol 100 ml 100 ml STK-MED ONCE IV Last administered on 06/18/16 01:51; Start 06/18/16 at 01:51; Stop 06/18/16 at 01:52; Status DC Lactated Ringer's (Lr 1000 ml Inj) 1,000 ml @ 30 mls/hr Q24H IV Last administered on 06/18/16 08:14; Start 06/18/16 at 06:45 A/P Assessment and Plan A/P Upper GI bleedwith history of cirrhosis s/p EGD with gastritis and duodenitis and esophageal varices- continue with PPI and Octreotide- plan for colonoscopy today Symptomatic anemia transfused with PRBC- H/H stable- will continue to monitor H/H and transfuse as needed anxiety; xanax as needed pancytopenia due to cirrhosis- will monitor Discharge Planning when ok with GI. Jose Luis Hicks MD Jun 18, 2016 08:45
[2016-06-18 09:20] VITALS: BP 128/85; PULSE 64; RESP 17; TEMP 96.3; O2SAT 98
[2016-06-18] MEDS ORDERED: PROPOFOL 200 MG/20 ML AMP IV ONE (09:39)
[2016-06-18 12:00] VITALS: BP 116/77; PULSE 68; RESP 16; TEMP 96.3; O2SAT 98
[2016-06-18] MEDS ORDERED: XIFA200T4 PO (13:31)
[2016-06-18] MEDS ORDERED: ALPR.25 PO (13:31)
[2016-06-18] MEDS ORDERED: PROP10TA6 PO (13:31)
--- NOTE | 2016-06-18 13:31 | HHI.DCPOC ---
Discharge Care Plan Diagnosis: (1) GI bleed Your Health Problems Are: Bleeding Tendency Goals to Promote Your Health * To prevent worsening of your condition and complications * To maintain your health at the optimal level Directions to Meet Your Goals Take your medications as prescribed Follow your dietary instruction Follow activity as directed Keep your appointments as scheduled Take your immunizations and boosters as scheduled If your symptoms worsen call your PCP, if no PCP go to Urgent Care Center or Emergency Room Smoking is Dangerous to Your Health. Avoid second hand smoke Call the 24-hour hour crisis hotline for domestic abuse at Jose Luis Hicks MD Jun 18, 2016 13:31
--- NOTE | 2016-06-18 13:34 | HHI.PR ---
Addendum To [facility] Progress Not Reason for addendum: Additonal documentation (patient had colonoscopy today with diverticulosis and internal/external hemorrhoids- was cleared for discharge by GI.) Jose Luis Hicks MD Jun 18, 2016 13:34
[2016-06-18] MEDS ORDERED: PROT40TA PO (13:35)
--- NOTE | 2016-06-18 13:39 | HHI.DS ---
Discharge Summary Admission Date Jun 16, 2016 at 15:36 Discharge Date: Jun 18, 2016 Admitting Diagnosis GI bleed, microcytic anemia, esophageal varices (1) GI bleed ICD Code: K92.2 Diagnosis: Principal Procedures EGD colonoscopy Brief History - From Admission History from patient, ER physician notes, and review of medical records. Patient reported that starting Tuesday, she was feeling constipated. This was then followed by feeling of some upset stomach which led to her having nausea and vomiting on Tuesday. She states that she has history of variceal bleeds and she knew immediately when she vomited and that she was having blood in her vomitus. It was somewhat brownish reddish in color. Not exactly coffee ground color. She presented to [facility] at that time and was discharged from the ER because her hemoglobin was apparently stable. She then continued to have this feeling of vomiting and upset stomach. She states she knew the symptoms that has because she was having the cirrhosis with variceal bleed previously for several times. The day before yesterday, Tuesday, she started taking lactulose because she was not moving her bowels and she was also starting to feel somewhat drowsy and having trouble thinking and making sentences. She states she therefore started getting bowel movement on that day. Her bowel movement was black in color. She then had a few more episodes. The patient was in her bathroom actually at the time of my arrival to her bedside. She did move her bowels at that time and she did have black stool during her bowel movement. Although it is somewhat small. Patient states CBC/BMP: 06/18/16 0119 06/16/16 1425 Significant Findings Laboratory Tests Test 06/16/16 06/16/16 06/17/16 06/17/16 14:25 17:00 00:50 07:40 White Blood Count 2.0 TH/MM3 (4.0-11.0) Red Blood Count 3.66 MIL/MM3 (4.00-5.30) Hemoglobin 8.3 GM/DL 8.1 GM/DL 9.3 GM/DL 9.4 GM/DL (11.6-15.3) (11.6-15.3) (11.6-15.3) (11.6-15.3) Hematocrit 25.7 % 24.8 % 30.1 % 28.9 % (35.0-46.0) (35.0-46.0) (35.0-46.0) (35.0-46.0) Mean Corpuscular Volume 70.2 FL (80.0-100.0) Mean Corpuscular Hemoglobin 22.7 PG (27.0-34.0) Red Cell Distribution Width 19.3 % (11.6-17.2) Platelet Count 66 TH/MM3 (150-450) Monocytes (%) (Auto) 16.2 % (0.0-8.0) Eosinophils (%) (Auto) 4.1 % (0.0-4.0) Neutrophils # (Auto) 1.2 TH/MM3 (1.8-7.7) Lymphocytes # (Auto) 0.4 TH/MM3 (1.0-4.8) Monocytes % 9 % (0-8) Neutrophils # (Manual) 1.3 TH/MM3 (1.8-7.7) Platelet Estimate LOW (NORMAL) Prothrombin Time 11.7 SEC (9.8-11.6) Chloride Level 110 MEQ/L (98-107) Random Glucose 107 MG/DL (74-106) Calcium Level 7.7 MG/DL (8.5-10.1) Aspartate Amino Transf 63 U/L (15-37) (AST/SGOT) Albumin 2.8 GM/DL (3.4-5.0) Test 06/17/16 06/18/16 11:15 01:19 Hemoglobin 9.5 GM/DL 11.1 GM/DL (11.6-15.3) (11.6-15.3) Hematocrit 29.5 % 34.3 % (35.0-46.0) (35.0-46.0) Imaging Last Impressions Abdomen/Pelvis CT 06/17/16 0000 Signed Impressions: Service Date/Time: Saturday, June 18, 2016 01:37 - CONCLUSION: 1. Cirrhosis and portal hypertension. 2. 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 Sj Bowser MD Abdomen X-Ray 06/16/16 0000 Signed Impressions: Service Date/Time: Thursday, June 16, 2016 14:12 - CONCLUSION: Benign abdomen with evidence of prior cholecystectomy and splenomegaly Richie Foster MD PE at Discharge GENERAL: This is a well-nourished, well-developed patient, in no apparent distress. CARDIOVASCULAR: Regular rate and regular rhythm without murmurs, gallops, or rubs. RESPIRATORY: Clear to auscultation. Breath sounds equal bilaterally. No wheezes , rales, or rhonchi. GASTROINTESTINAL: Abdomen soft, non-tender, nondistended. Normal, active bowel sounds MUSCULOSKELETAL: Extremities without clubbing, cyanosis, or edema. NEURO: Alert & Oriented x4 to person, place, time, situation. Moves all ext x4 Hospital Course Upper GI bleedwith history of cirrhosis s/p EGD with gastritis and duodenitis and esophageal varices- treated with PPI and Octreotide- s/p colonoscopy with diverticulosis and internal/ external hemorrhoids Symptomatic anemia transfused with PRBC- H/H stable- anxiety; xanax as needed pancytopenia due to cirrhosis- will monitor Pt Condition on Discharge: Stable Discharge Disposition: Discharge Home Discharge Time: <= 30 minutes Discharge Instructions DIET: Follow Instructions for: Heart Healthy Diet Activities you can perform: Regular-No Restrictions Follow up Referrals: Gastroenterology PCP Follow-up New Medications: Pantoprazole (Protonix) 40 Mg Tab 40 MG PO DAILY Reflux #30 Ref 0 TAB Alprazolam (Xanax) 0.25 Mg Tab 0.25 MG PO Q8H PRN ANXIETY #6 Ref 0 TAB Propranolol (Propranolol) 10 Mg Tab 10 MG PO Q8HR cirrhosis Days 30 Ref 0 TAB Rifaximin (Xifaxan) 200 Mg Tab 400 MG PO Q8HR cirrhosis Days 30 Ref 0 TAB Continued Medications: Metoclopramide (Reglan) 10 Mg Tab 10 MG PO QID #120 Ref 0 TAB Jose Luis Hicks MD Jun 18, 2016 13:39
--- NOTE | 2016-06-18 16:42 | EKG ---
Date Performed: 06/17/2016 Time Performed: 15:08:43 PTAGE: 50 years EKG: Sinus rhythm NORMAL ECG PREVIOUS TRACING : 04/12/2014 09.43 Compared to prior tracing no significant change DOCTOR: Olayinka Mejia Interpretating Date/Time 06/18/2016 16:40:52
== END 2016-06-18 15:30 | disposition home or self-care (01) | DRG 378 ==
LOC: PHED 13:42 → PHEDA 15:36 → N07B 18:15
PROVIDERS: ADMIT Internal Medicine; ATTEND Internal Medicine
PROC: 0DJD8ZZ Inspection of Lower Intestinal Tract, Via Natural or Artificial Opening Endoscopic (ICD-10-PCS; 2016-06-18)
PROC: 0DB68ZX Excision of Stomach, Via Natural or Artificial Opening Endoscopic, Diagnostic (ICD-10-PCS; 2016-06-18)
PROC: 30253N1 (ICD-10-PCS; principal; 2016-06-18 09:30)
DX: K92.0 Hematemesis (principal); D61.818 Other pancytopenia; K76.6 Portal hypertension; K70.30 Alcoholic cirrhosis of liver without ascites; K31.84 Gastroparesis; D50.9 Iron deficiency anemia, unspecified; F10.10 Alcohol abuse, uncomplicated; I10 Essential (primary) hypertension; K92.1 Melena; B18.2 Chronic viral hepatitis C; I85.00 Esophageal varices without bleeding; I83.90 Asymptomatic varicose veins of unspecified lower extremity; K29.70 Gastritis, unspecified, without bleeding; K59.00 Constipation, unspecified; Z87.11 Personal history of peptic ulcer disease; Z87.440 Personal history of urinary (tract) infections; Z87.442 Personal history of urinary calculi; Z91.19 Patient's noncompliance with other medical treatment and regimen; K57.90 Diverticulosis of intestine, part unspecified, without perforation or abscess without bleeding; K64.4 Residual hemorrhoidal skin tags; K29.80 Duodenitis without bleeding; K21.9 Gastro-esophageal reflux disease without esophagitis; F17.210 Nicotine dependence, cigarettes, uncomplicated
CPT/HCPCS: 36430; 74020; 74177; 76937; 80053; 85007; 85014; 85018; 85027; 85610; 85730; 86850; 86900; 86901; 86920; 87641; 88305; 88312; 93005; 96374; 96375; 96376; C9113; J2270; J2354; J2405; J3480; J7040; J7120; P9016; Q9963; Q9967

== ENCOUNTER 2016-12-01 17:56 | Inpatient (IN) | payer MEDICAID ==
[~2016-12-01] VITALS: Ht 162.6 cm; Wt 94.1 kg
[~2016-12-01 17:56] MED LIST changes: +ALPR.25 PO; -CHLO.12%30 SWISH-SPIT; -CLIN150 PO; -IBUP800T23 PO; -MMW SWISH-SPIT; +PROP10TA6 PO; +PROT40TA PO; +REGL10TA5 PO; +XIFA200T4 PO
[2016-12-01 18:02] VITALS: BP 118/84; PULSE 113; RESP 16; TEMP 97.9; O2SAT 96
[2016-12-01] MEDS ORDERED: DILT60TA PO (20:16)
[2016-12-01] MEDS ORDERED: VANC1INJ2 IV (20:16)
[2016-12-01] MEDS ORDERED: HYDR-3533 PO (20:16)
[2016-12-01] MEDS ORDERED: ZOFR4TAB PO (20:16)
[2016-12-01] MEDS ORDERED: METO25TA3 PO (20:16)
[2016-12-01 20:30] VITALS: BP 139/85; PULSE 110; RESP 18; O2SAT 97
[2016-12-01] MEDS ORDERED: ONDANSETRON HCL 4 MG/2 ML VIAL IV PUSH ONE (21:15)
[2016-12-01] MEDS ORDERED: HYDROmorphone HCL PF 1 MG/ML VIAL IV PUSH ONE (21:15)
[2016-12-01] MEDS ORDERED: SODIUM CHLOR 0.9% 1000 ML INJ 1,000 ML IV SCH (21:15)
--- NOTE | 2016-12-01 21:19 | PD ---
HPI Chief Complaint: Chest Pain Time Seen by Provider: 21:01 Travel History International Travel<30 days: No Contact w/Intl Traveler<30days: No Traveled to known affect area: No History of Present Illness HPI This 51-year-old female is complaining of diarrhea. Her diarrhea has been going on for a few days. She was admitted to [facility] at the beginning of this month. 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 She was on multiple antibiotics and has been discharged with a PICC line. She is getting daily vancomycin. She has been having some pain since she was sent home. She was sent home with [facility] which she says helped her pain however she has run out of the [place]. She has a history of hepatitis C. She has been a drinker in the past. She has a history of cirrhosis. She currently PICC line and is getting vancomycin as daily though she did not get up today. She has the sutures from her pericardial window remove the other day. She's been having diarrhea for the last 2 days. She is feeling very weak PFSH Past Medical History Hx Anticoagulant Therapy: No Anemia: Yes Arthritis: No Asthma: No Autoimmune Disease: No Blood Disorders: Yes (Thrombocytopenia) Anxiety: Yes Depression: Yes Heart Rhythm Problems: No Cancer: No Cardiovascular Problems: No High Cholesterol: No Chemotherapy: No Chest Pain: No Congestive Heart Failure: No Cirrhosis: Yes COPD: No Cerebrovascular Accident: No Diabetes: No Diminished Hearing: No Endocrine: No Gastrointestinal Disorders: Yes (Enlarged spleen, GIB) GERD: Yes Glaucoma: No Genitourinary: Yes (Frequent UTI's) Headaches: Yes Hepatitis: Yes (C- tx w/ Nath[place]) Hiatal Hernia: No Hypertension: Yes (During ) Immune Disorder: No Implanted Vascular Access Dvce: No Kidney Stones: Yes Medical other: Yes (CIRRHOSIS OF LIVER, ENLARGED SPLEEN, INCREASED AMMONIA LEVEL) Musculoskeletal: Yes ("Injury" low back) Neurologic: No Psychiatric: Yes (Bipolar) Reproductive: No Respiratory: Yes (SMOKES 1/2 PPD) Immunizations Current: No Migraines: Yes Myocardial Infarction: No Radiation Therapy: Yes Renal Failure: No Seizures: No Sickle Cell Disease: No Sleep Apnea: No Thyroid Disease: No Ulcer: No Tetanus Vaccination: > 5 Years Influenza Vaccination: Yes PNEUMOCCOCAL Vaccine (Year): 1 ?: Not LMP: 11/20/16 Menopausal: Yes : 2 Tubal Ligation: Yes Past Surgical History Abdominal Surgery: Yes (CHOLECYSTECTOMY 2010) AICD: No Appendectomy: No Arteriovenous Shunt: No Cardiac Surgery: Yes (pericardial window 11/22/16) Section: Yes (X's 2) Cholecystectomy: Yes Ear Surgery: No Endocrine Surgery: No Eye Surgery: No Genitourinary Surgery: No Gynecologic Surgery: Yes (C SECTION X2, TUBAL LIGATION) Insulin Pump: No Joint Replacement: No Neurologic Surgery: No Oral Surgery: Yes ([place] teeth) Pacemaker: No Thoracic Surgery: No Other Surgery: Yes (Banding for esophageal varices) Social History Alcohol Use: Yes (Occ.) Tobacco Use: Yes (05/24 PPD) 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) Allergies-Medications (Allergen,Severity, Reaction): Coded Allergies: Penicillin (Verified Allergy, Severe, FEVER, 12/01/16) *MDRO Multi-Drug Resistant Organism (Verified Adverse Reaction, Unknown, ) MRSA (leg) - 08/20/08 MRSA PCR Screen POSITIVE - 06/17/2016 Reported Meds & Prescriptions Reported Meds & Active Scripts Active Xanax (Alprazolam) 0.25 Mg Tab 0.25 Mg PO Q8H PRN Reported Vancomycin in Dextrose Inj 1 Gm/200 Ml Inj 1,250 Mg IV Q12H Zofran (Ondansetron HCl) 4 Mg Tab 4 Mg PO Q6HR PRN Lortab (Hydrocodone-Acetaminophen) 5-325 Mg Tab 1 Tab PO Q6H PRN Diltiazem (Diltiazem HCl) 60 Mg Tab 60 Mg PO QID Metoprolol Tartrate 25 Mg Tab 25 Mg PO BID Review of Systems General / Constitutional: No: Fever, Chills Eyes: No: Diploplia, Blurred Vision HENT: No: Headaches, Vertigo Cardiovascular: No: Palpitations, Irregular Rhythm Respiratory: No: Cough, Shortness of Breath Gastrointestinal: Positive: Nausea, Diarrhea Genitourinary: No: Frequency Musculoskeletal: Positive: Myalgias, Arthralgias Physical Exam Narrative GENERAL: Well-developed female SKIN: Focused skin assessment warm/dry. HEAD: Atraumatic. Normocephalic. EYES: Pupils equal and round. No scleral icterus. No injection or drainage. ENT: No nasal bleeding or discharge. Mucous membranes pink and moist. NECK: Trachea midline. No JVD. CARDIOVASCULAR: Regular rate and rhythm. No murmur appreciated. Corneal scar is healing well RESPIRATORY: No accessory muscle use. Clear to auscultation. Breath sounds equal bilaterally. GASTROINTESTINAL: Abdomen soft, there is mild distention nondistended. Hepatic and splenic margins not palpable. MUSCULOSKELETAL: No obvious deformities. No clubbing. No cyanosis. No edema. NEUROLOGICAL: Awake and alert. No obvious cranial nerve deficits. Motor grossly within normal limits. Normal speech. PSYCHIATRIC: Appropriate mood and affect; insight and judgment normal. Data Data Last Documented VS Vital Signs Date Time Temp Pulse Resp B/P Pulse Ox O2 Delivery O2 Flow Rate FiO2 12/01/16 22:50 18 12/01/16 22:30 98.0 112 119/75 98 Room Air Orders Electrocardiogram (12/01/16 19:56) Complete Blood Count With Diff (12/01/16 21:13) Comprehensive Metabolic Panel (12/01/16 21:13) Enteric Path (Stool) (12/01/16 21:13) C Diff Toxin Pcr (12/01/16 21:13) Sodium Chlor 0.9% 1000 Ml Inj (Ns 1000 M (12/01/16 21:15) Ondansetron Inj (Zofran Inj) (12/01/16 21:15) Hydromorphone Pf Inj (Dilaudid Pf Inj) (12/01/16 21:15) Chest, Single Ap (12/01/16 21:20) Electrocardiogram (12/01/16 21:20) Blood Culture (12/01/16 21:33) Lactic Acid Sepsis Protocol (12/01/16 21:33) Potassium Chloride (Kcl) (12/01/16 22:45) Admit Order (Ed Use Only) (12/01/16 23:36) Labs Laboratory Tests Test 12/01/16 21:35 White Blood Count 1.5 TH/MM3 Red Blood Count 3.52 MIL/MM3 Hemoglobin 8.7 GM/DL Hematocrit 26.9 % Mean Corpuscular Volume 76.6 FL Mean Corpuscular Hemoglobin 24.7 PG Mean Corpuscular Hemoglobin 32.2 % Concent Red Cell Distribution Width 24.6 % Platelet Count 100 TH/MM3 Mean Platelet Volume 7.2 FL Neutrophils (%) (Auto) 46.5 % Lymphocytes (%) (Auto) 26.0 % Monocytes (%) (Auto) 24.5 % Eosinophils (%) (Auto) 2.3 % Basophils (%) (Auto) 0.7 % Neutrophils # (Auto) 0.7 TH/MM3 Lymphocytes # (Auto) 0.4 TH/MM3 Monocytes # (Auto) 0.4 TH/MM3 Eosinophils # (Auto) 0.0 TH/MM3 Basophils # (Auto) 0.0 TH/MM3 CBC Comment AUTO DIFF Differential Total Cells 100 Counted Neutrophils % (Manual) 59 % Lymphocytes % 21 % Monocytes % 18 % Eosinophils % 1 % Neutrophils # (Manual) 0.9 TH/MM3 Differential Comment FINAL DIFF MANUAL Plasma Cells 1 % Platelet Estimate LOW Platelet Morphology Comment NORMAL Sodium Level 144 MEQ/L Potassium Level 3.4 MEQ/L Chloride Level 113 MEQ/L Carbon Dioxide Level 23.0 MEQ/L Anion Gap 8 MEQ/L Blood Urea Nitrogen 4 MG/DL Creatinine 0.51 MG/DL Estimat Glomerular Filtration 127 ML/MIN Rate Random Glucose 97 MG/DL Lactic Acid Level 0.9 mmol/L Calcium Level 8.3 MG/DL Total Bilirubin 1.0 MG/DL Aspartate Amino Transf 41 U/L (AST/SGOT) Alanine Aminotransferase 21 U/L (ALT/SGPT) Alkaline Phosphatase 131 U/L Total Protein 7.1 GM/DL Albumin 2.1 GM/DL [facility] Medical Decision Making Medical Screen Exam Complete: Yes Emergency Medical Condition: Yes Medical Record Reviewed: Yes Differential Diagnosis Chest x-ray shows compensated cardiomegaly. Her hemoglobin is 8. Her white count is a 1.5. She has some lab work from the hospital with her and we have called for additional records have not received them yet. Her white count when she was at [facility] currently 4000. She has 700 neutrophils. She is certainly at great risk for the Narrative Course Differential includes C. difficile, enteritis, electrolyte imbalance. Patient is at high risk of C. difficile due to her multiple antibiotic courses over the last few weeks Diagnosis Primary Impression: Enteritis Additional Impression: Neutropenia Qualified Code: D70.9 - Neutropenia, unspecified type Admitting Information Admitting Physician Requests: Admit Elvin Louis MD Dec 01, 2016 21:19
[2016-12-01 21:30] VITALS: BP 146/74; PULSE 114; RESP 18; O2SAT 98
[2016-12-01 21:46] LABS: AUTOMATED NEUTROPHIL # 0.7 TH/MM3 (1.8-7.7); BASOPHIL % 0.7 % (0.0-2.0); EOSINOPHIL % 2.3 % (0.0-4.0); HEMATOCRIT 26.9 % (35.0-46.0); LYMPHOCYTE # 0.4 TH/MM3 (1.0-4.8); MEAN CELL VOLUME 76.6 FL (80.0-100.0); MEAN CORPUSCULAR HEMOGLOBIN 24.7 PG (27.0-34.0); MEAN CORPUSCULAR HGB CONC 32.2 % (32.0-36.0); MONO % 24.5 % (0.0-8.0); NEUT % 46.5 % (16.0-70.0); PLATELET COUNT 100 TH/MM3 (150-450); RED BLOOD COUNT 3.52 MIL/MM3 (4.00-5.30); RED CELL DISTRIBUTION WIDTH 24.6 % (11.6-17.2); WHITE BLOOD COUNT 1.5 TH/MM3 (4.0-11.0)
[2016-12-01 21:48] LABS: HEMO FLAGS AUTO DIFF
[2016-12-01 21:56] LABS: CHLORIDE 113 MEQ/L (98-107); POTASSIUM 3.4 MEQ/L (3.5-5.1); SODIUM (NA) 144 MEQ/L (136-145)
--- NOTE | 2016-12-01 21:56 | RADRPT ---
EXAM DATE/TIME: 12/01/2016 21:44 [place] COMPARISON: CT ABDOMEN & PELVIS W CONTRAST, June 18, 2016, 1:37. INDICATIONS : Chest pain today. Patient is post op pericardial window, 11-22-2016. MEDICAL HISTORY : Hypertension. Splenomegaly. Cirrhosis. Hep C. Thrombocytopenia. SURGICAL HISTORY : Cholecystectomy. section. Tubal ligation. Pericardial window. ENCOUNTER: Initial ACUITY: 1 day PAIN SCORE: 6/10 LOCATION: Bilateral chest FINDINGS: The lungs are clear. The heart is minimally enlarged. The pulmonary vascularity is normal. There is n o evidence for infiltrate or failure. The portion of the bony skeleton visualized is unremarkable. CONCLUSION: Compensated cardiomegaly otherwise negative Board Certified Radiologist. This report was verified electronically.
[2016-12-01 22:00] LABS: ANION GAP 8 MEQ/L (5-15); BLOOD UREA NITROGEN 4 MG/DL (7-18)
[2016-12-01 22:03] LABS: ALT (GPT) 21 U/L (10-53); AST (GOT) 41 U/L (15-37); GLOMERULAR FILTRATION RATE 127 ML/MIN (>89)
[2016-12-01 22:06] LABS: ALKALINE PHOSPHATASE 131 U/L (45-117)
--- NOTE | 2016-12-01 22:12 | EKG ---
Date Performed: 12/01/2016 Time Performed: 21:29:01 PTAGE: 51 years EKG: SINUS TACHYCARDIA POSSIBLE LEFT ATRIAL ENLARGEMENT LOW QRS VOLTAGE SEPTAL MYOCARDIAL INFARC TION ABNORMAL ECG PREVIOUS TRACING : 12/01/2016 19.56 No significant change from previous tracing noted. DOCTOR: Fortino Ruiz Interpretating Date/Time 12/01/2016 22:11:28
--- NOTE | 2016-12-01 22:19 | EKG ---
Date Performed: 12/01/2016 Time Performed: 19:56:42 PTAGE: 51 years EKG: SINUS TACHYCARDIA POSSIBLE LEFT ATRIAL ENLARGEMENT LOW QRS VOLTAGE NONSPECIFIC T-WAVE ABNOR MALITY ABNORMAL ECG PREVIOUS TRACING : 06/17/2016 15.08 Compared to previous tracing, heart rated has increased. DOCTOR: Fortino Ruiz Interpretating Date/Time 12/01/2016 22:17:52
[2016-12-01 22:30] VITALS: BP 119/75; PULSE 112; RESP 18; TEMP 98; O2SAT 98
[2016-12-01] MEDS ORDERED: POTASSIUM CHLORIDE 20 MEQ CONTROLLED RELEASE TAB PO ONE ×2 (22:45→23:45)
[2016-12-01 22:55] LABS: EOSINOPHILS 1 % (0-4); NEUTROPHIL # MANUAL DIFF 0.9 TH/MM3 (1.8-7.7); PLASMA CELLS 1 % (0-0); POLYS (SEG NEUTROPHILS) 59 % (16-70); WBC DIFF SAMPLE 100
[2016-12-01 22:56] LABS: PLATELET ESTIMATE SMEAR LOW (NORMAL); PLATELET MORPHOLOGY NORMAL (NORMAL); SCAN/DIFF FINAL DIFF MANUAL
[2016-12-01 23:30] VITALS: BP 114/68; PULSE 110; RESP 18; O2SAT 98
[2016-12-01] MEDS ORDERED: SODIUM CHLORIDE 0.9% FLUSH 10 ML FLUSH IV FLUSH PRN (23:45)
[2016-12-01] MEDS ORDERED: NALOXONE HCL 0.4 MG/ML AMP IV PRN (23:45)
[2016-12-02] VITALS (7 sets, daily range): BP systolic 104–125; BP diastolic 65–82; PULSE 81–113; RESP 16–20; TEMP 97.5–98.4; O2SAT 92–98
[2016-12-02] MEDS: metroNIDAZOLE 500 MG INJ 100 ML IV SCH ×5 (00:19→23:14)
[2016-12-02 00:44] LABS: C. DIFF EPI 027 PRESUMPTIVE NEGATIVE (NEGATIVE); C. DIFF TOXIN PCR NEGATIVE (NEGATIVE)
[2016-12-02] MEDS: HYDROmorphone HCL PF 1 MG/ML VIAL IV PUSH PRN ×3 (04:15→13:01)
[2016-12-02] MEDS: ONDANSETRON HCL 4 MG/2 ML VIAL IV PUSH PRN ×2 (04:15→13:02)
[2016-12-02 06:34] LABS: HEMATOCRIT 26.3 % (35.0-46.0); MEAN CELL VOLUME 76.6 FL (80.0-100.0); MEAN CORPUSCULAR HEMOGLOBIN 24.9 PG (27.0-34.0); MEAN CORPUSCULAR HGB CONC 32.6 % (32.0-36.0); PLATELET COUNT 91 TH/MM3 (150-450); RED BLOOD COUNT 3.44 MIL/MM3 (4.00-5.30); RED CELL DISTRIBUTION WIDTH 23.8 % (11.6-17.2); WHITE BLOOD COUNT 1.5 TH/MM3 (4.0-11.0)
[2016-12-02 06:38] LABS: HEMO FLAGS AUTO DIFF
[2016-12-02 06:45] LABS: POTASSIUM 3.7 MEQ/L (3.5-5.1)
[2016-12-02 06:48] LABS: BICARBONATE 24.1 MEQ/L (21.0-32.0)
[2016-12-02 07:22] LABS: EOSINOPHILS 2 % (0-4); NEUTROPHIL # MANUAL DIFF 0.7 TH/MM3 (1.8-7.7); POLYS (SEG NEUTROPHILS) 46 % (16-70); WBC DIFF SAMPLE 100
[2016-12-02 07:23] LABS: PLATELET ESTIMATE SMEAR LOW (NORMAL); PLATELET MORPHOLOGY NORMAL (NORMAL); SCAN/DIFF FINAL DIFF MANUAL
[2016-12-02] MEDS: SODIUM CHLORIDE 0.9% FLUSH 10 ML FLUSH IV FLUSH SCH ×2 (09:00→20:43)
[2016-12-02] MEDS ORDERED: Vancomycin Consult Pharmacy 1 EA OTHER SCH (14:00)
[2016-12-02] MEDS: ALPRAZolam 0.25 MG TAB PO PRN ×2 (15:08→23:14)
--- NOTE | 2016-12-02 15:13 | HHI.HP ---
[facility] Non-Staff Admission Diagnosis ENTERITIS, PANCYTOPENIA Diagnoses: Travel History International Travel<30 Days: No Contact w/Intl Traveler <30 Da: No Traveled to Known Affected Are: No History of Present Illness This 51-year-old female with PMH of pericardial effusion s/p pericardial window 11/22/16, pancytopenia, depression/bipolar disorder, HTN, liver cirrhosis, hepatitis C treated with Harvoni, is complaining of diarrhea. Her diarrhea has been going on for a few days. She was admitted to [facility] at the beginning of this month. 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 She was on multiple antibiotics and has been discharged with a PICC line. She is getting daily vancomycin. She has been having some pain since she was sent home. She was sent home with [employer] which she says helped her pain however she has run out of the [place]. She has a history of hepatitis C. She has been a drinker in the past. She has a history of cirrhosis. She currently PICC line and is getting vancomycin as daily though she did not get up today. She has the sutures from her pericardial window remove the other day. She's been having diarrhea for the last 2 days. She is feeling very weak Review of Systems Except as stated in HPI: all other systems reviewed are Neg Past Family Social History Past Medical History Pericardial effusion s/p pericardial window 11/22/16, pancytopenia, depression/ bipolar disorder, HTN, liver cirrhosis, hepatitis C treated with Harvoni, Past Surgical History Cholecystectomy 2010 Pericardial window 11/22/16 C - section x2 Tubal ligation Banding for esophageal varices Reported Medications Last Impressions Chest X-Ray 12/01/162119 Signed Impressions: Service Date/Time: Tuesday, December 01, 2016 21:44 - CONCLUSION: Compensated cardiomegaly otherwise negative Board Certified Radiologist. This report was verified electronically. Allergies: Coded Allergies: Penicillin (Verified Allergy, Severe, FEVER, 12/01/16) *MDRO Multi-Drug Resistant Organism (Verified Adverse Reaction, Unknown, ) MRSA (leg) - 3/31/09 MRSA PCR Screen POSITIVE - 06/17/2016 Family History Colon cancer runs in family. Cardiac problems runs in family, unspecified. Social History Tobacco use 1/2 PPD H/o IVDA Occasional EtOH use Physical Exam Vital Signs Vital Signs Date Time Temp Pulse Resp B/P Pulse Ox O2 Delivery O2 Flow Rate FiO2 12/02/16 13:34 19 12/02/16 12:00 98.1 99 17 118/81 94 12/02/16 08:00 98.4 113 18 120/79 92 12/02/16 04:00 97.5 109 20 124/82 93 12/02/16 02:13 110 12/02/16 01:00 Room Air 12/02/16 00:30 98.0 109 18 119/72 98 Room Air 12/01/16 23:30 110 18 114/68 98 Room Air 12/01/16 22:50 18 12/01/16 22:30 98.0 112 18 119/75 98 Room Air 12/01/16 21:30 114 18 146/74 98 Room Air 12/01/16 21:00 Room Air 12/01/16 20:30 110 18 139/85 97 Room Air 12/01/16 20:17 112 16 96 Room Air 12/01/16 18:02 97.9 113 16 118/84 96 Physical Exam GENERAL: This is a well-nourished, well-developed patient, in no apparent distress. SKIN: No rashes, ecchymoses or lesions. Cool and dry. HEAD: Atraumatic. Normocephalic. No temporal or scalp tenderness. EYES: Pupils equal round and reactive. Extraocular motions intact. No scleral icterus. No injection or drainage. ENT: Nose without bleeding, purulent drainage or septal hematoma. Throat without erythema, tonsillar hypertrophy or exudate. Uvula midline. Airway patent. NECK: Trachea midline. No JVD or lymphadenopathy. Supple, nontender, no meningeal signs. CARDIOVASCULAR: Incision from recent pericardial window surgery is healing well no signs of infection. Regular rate and rhythm without murmurs, gallops, or rubs. RESPIRATORY: Clear to auscultation. Breath sounds equal bilaterally. No wheezes , rales, or rhonchi. GASTROINTESTINAL: Abdomen soft, non-tender, nondistended. No hepato-splenomegaly , or palpable masses. No guarding. MUSCULOSKELETAL: Extremities without clubbing, cyanosis, or edema. No joint tenderness, effusion, or edema noted. No calf tenderness. Negative Homans sign bilaterally. NEUROLOGICAL: Awake and alert. Cranial nerves II through XII intact. Motor and sensory grossly within normal limits. Five out of 5 muscle strength in all muscle groups. Normal speech. Laboratory Laboratory Tests Test 12/01/16 12/01/16 12/02/16 21:35 22:00 06:00 White Blood Count 1.5 1.5 Red Blood Count 3.52 3.44 Hemoglobin 8.7 8.6 Hematocrit 26.9 26.3 Mean Corpuscular Volume 76.6 76.6 Mean Corpuscular Hemoglobin 24.7 24.9 Mean Corpuscular Hemoglobin 32.2 32.6 Concent Red Cell Distribution Width 24.6 23.8 Platelet Count 100 91 Mean Platelet Volume 7.2 7.4 Neutrophils (%) (Auto) 46.5 Lymphocytes (%) (Auto) 26.0 Monocytes (%) (Auto) 24.5 Eosinophils (%) (Auto) 2.3 Basophils (%) (Auto) 0.7 Neutrophils # (Auto) 0.7 Lymphocytes # (Auto) 0.4 Monocytes # (Auto) 0.4 Eosinophils # (Auto) 0.0 Basophils # (Auto) 0.0 CBC Comment AUTO DIFF AUTO DIFF Differential Total Cells 100 100 Counted Neutrophils % (Manual) 59 46 Lymphocytes % 21 34 Monocytes % 18 18 Eosinophils % 1 2 Neutrophils # (Manual) 0.9 0.7 Differential Comment FINAL DIFF FINAL DIFF MANUAL MANUAL Plasma Cells 1 Platelet Estimate LOW LOW Platelet Morphology Comment NORMAL NORMAL Sodium Level 144 144 Potassium Level 3.4 3.7 Chloride Level 113 112 Carbon Dioxide Level 23.0 24.1 Anion Gap 8 8 Blood Urea Nitrogen 4 3 Creatinine 0.51 0.52 Estimat Glomerular Filtration 127 124 Rate Random Glucose 97 87 Lactic Acid Level 0.9 Calcium Level 8.3 8.0 Total Bilirubin 1.0 Aspartate Amino Transf 41 (AST/SGOT) Alanine Aminotransferase 21 (ALT/SGPT) Alkaline Phosphatase 131 Total Protein 7.1 Albumin 2.1 Stool C. difficile Toxin (PCR) NEGATIVE Stl C. difficile Toxin PRESUMPTIVE Epiderm 027 NEGATIVE Date/Time Procedure Status Source Growth 12/01/16 22:00 Received Stool Stool Pending 12/01/16 21:40 Aerobic Blood Culture - Preliminary Resulted Blood Peripheral NO GROWTH IN 1 DAY 12/01/16 21:40 Anaerobic Blood Culture - Preliminary Resulted Blood Peripheral NO GROWTH IN 1 DAY Result Diagram: 12/02/16 0600 12/02/16 0600 Imaging Last Impressions Chest X-Ray 12/01/162119 Signed Impressions: Service Date/Time: Thursday, December 01, 2016 21:44 - CONCLUSION: Compensated cardiomegaly otherwise negative Board Certified Radiologist. This report was verified electronically. MD Assessment and Plan Assessment and Plan Enteritis Neutropenia/Pancytopenia Recent prolonged antibiotic use 2/2 pericarditis with MRSA. Pericardial effusion s/p pericardial window 11/22/16 Chest x-ray shows compensated cardiomegaly Hemoglobin is 8. WBC 1.5 on admission . Neutrophil count 0.9 Stop vanco Start metronodazole Antiemetics Consult ID for evaluation, review of antibiotics and recommendations Consult hem/onc for recommendations. Discussed with Dr Blandon from hem/onc . Recommends further work up for anemia and also to discontinue vancomycin Chronic medical problems appears stable at this time depression/bipolar disorder , HTN, liver cirrhosis, hepatitis C treated with Harvoni. Restart home meds. DVT ppx SCD/TEDs Physician Certification 2 Midnight Certification Type: Admission for Inpatient Services Order for Inpatient Services The services are ordered in accordance with Medicare regulations or non- Medicare payer requirements, as applicable. In the case of services not specified as inpatient-only, they are appropriately provided as inpatient services in accordance with the 2-midnight benchmark. Estimated LOS (days): 3 days is the estimated time the patient will need to remain in the hospital, assuming treatment plan goals are met and no additional complications. Post-Hospital Plan: Home Melba Garrett MD Dec 02, 2016 15:13
[2016-12-02] MEDS: DILTIAZEM HCL 60 MG TAB PO SCH ×2 (17:20→20:33)
[2016-12-02] MEDS: ACETAMINOPHEN/HYDROcodone 325 MG/5 MG TAB PO PRN (17:20)
--- NOTE | 2016-12-02 17:22 | MB ---
cc: HOLLY MOTT M.D. DATE OF CONSULTATION: 12/02/2016. REASON FOR CONSULTATION: Hematology was consulted to render opinion on a patient admitted with pancytopenia. ATTENDING PHYSICIAN: Dr. Garrett. HISTORY OF PRESENT ILLNESS The patient is a 51-year-old female with history of hepatitis C and cirrhosis and recent of MRSA pericarditis who presented to the hospital with a complaint of increased weakness and diarrhea. She has a history of alcohol abuse which she just recently quit. She was admitted to the hospital at the end of October with purulent pericarditis. She was found to have a MRSA infection. She had pericardial window placement on November 22, 2016 and she was discharged home with vancomycin. Since then, she has not been feeling well and she started having diarrhea about a week ago. She has increased weakness and decreased appetite. She denies any fever or chills. She denies any chest. She has pain and the mid epigastric and anterior chest. She also has right flank pain. She ran out of [employer] prior to her presentation to the hospital. On presentation, she found to have pancytopenia, white cells 1.5, ANC of 0.9, hemoglobin 8.7 and platelet count 100,000. PAST SURGICAL HISTORY: 1. Recent pericarditis with pericardial effusion. 2. Depression / bipolar disorder. 3. Hypertension. 4. Hepatitis C cirrhosis treated with Harvoni about two years ago. 5. Chronic pancytopenia. PAST SURGICAL HISTORY: 1. Pericardial window placed on November 22, 2016. 2. Cholecystectomy. 3. section x2. 4. Bilateral tubal ligation. 5. Banding of esophageal varices. FAMILY HISTORY: Noncontributory. SOCIAL HISTORY: Smoked half a pack a day for at least twenty years. She used to drink heavily but not since about the end of October. She also has a history of IV drug use. ALLERGIES: PENICILLIN. CURRENT MEDICATIONS: 1. Metoprolol. 2. Diltiazem. 3. Flagyl. REVIEW OF SYSTEMS: CONSTITUTIONAL: As above. ENT: Denies any mouth sores or voice changes. CARDIOVASCULAR: As above. RESPIRATORY: As above. GI: As above. : Denies any dysuria or hematuria. MUSCULOSKELETAL: As above. HEMATOLOGIC: As above. ENDOCRINE: Negative. DERMATOLOGIC: Negative. PSYCHIATRIC: Negative. NEUROLOGIC: Negative. PHYSICAL EXAMINATION: VITAL SIGNS: Temperature 97.7, blood pressure 125/65, 02 saturation 96% on room air. GENERAL: She is alert and oriented times three and in no acute distress. HEAD, EYES, EARS, NOSE, THROAT: Atraumatic, normocephalic. Pupils equal, round, reactive to light. Extraocular muscles intact. No scleral icterus. OROPHARYNX: Dry mucosa. No lesions. No thrush. No mucositis. NECK: No thyromegaly. No palpable mass. LYMPHATIC: No palpable cervical, clavicular, axillary or inguinal lymph nodes. CARDIOVASCULAR: Regular S1-S2. No murmur. LUNGS: Clear to auscultation bilaterally. ABDOMEN: Abdomen slightly distended. Soft. Mild tenderness in the epigastric area. Difficult to palpate liver or spleen. EXTREMITIES: No cyanosis or clubbing. Trace ankle edema. No calf tenderness. BACK: No paravertebral tenderness. SKIN: No rash or petechiae. NEUROLOGIC EXAM: Nonfocal. LABORATORY DATA: Reviewed. ASSESSMENT: 1. Pancytopenia, which is chronic due to underlying cirrhosis and splenomegaly. She has CT of the abdomen and pelvis in May of 2016 which showed a cirrhotic liver and splenomegaly with spleen size of around 21 cm. Her recent drop in blood count likely is due to sepsis and antibiotic use. Her platelet count is about her baseline. She also has anemia and I suspect she has iron deficiency also that caused the anemia. Her white cells are 1.5 with absolute neutrophil count of 700. At this point, she does not look to be septic and I am going to hold off on giving her Neupogen. 2. Recent pericarditis with purulent pericardial effusion status post pericardial window placement. 3. Hepatitis C cirrhosis treated with Harvoni about two years ago. She also has a history of alcohol abuse, which she just quit at the end of October. 4. Hypertension. 5. Bipolar disorder. RECOMMENDATIONS: 1. Check her iron and vitamin studies. 2. Start oral iron supplement and if she has significant iron deficiency, can also consider giving her Venofer. 3. Hold off on giving her Neupogen at this time and monitor her CBC. 4. I discussed the case with Dr. Garrett. Thank you Dr. Garrett for asking me to see this patient. MD WILL Álvarez/SACHIN /4:56 PM /5:11 PM MAUREEN
[2016-12-02] MEDS: LACTOBACILLUS ACIDOPHILUS TAB PO SCH (17:51)
[2016-12-02] MEDS ORDERED: VANCOMYCIN INJ 1,250 MG in SODIUM CHLOR 0.9% 250 ML INJ 250 ML IV SCH (18:00)
[2016-12-02 20:32] LABS: TRANSFERRIN IRON PROFILE 179 MG/DL (200-360)
[2016-12-02] MEDS: METOPROLOL TARTRATE 25 MG TAB PO SCH (20:32)
[2016-12-02] MEDS: FERROUS SULFATE 325 MG (65 MG ELEMENTAL IRON) TAB PO SCH (20:43)
[2016-12-02 21:08] LABS: FERRITIN 16 NG/ML (8-252)
[2016-12-03] VITALS (7 sets, daily range): BP systolic 88–141; BP diastolic 59–85; PULSE 82–114; RESP 16–19; TEMP 97.3–98.6; O2SAT 93–98
[2016-12-03] MEDS: ONDANSETRON HCL 4 MG/2 ML VIAL IV PUSH PRN ×4 (00:33→20:56)
[2016-12-03] MEDS: ACETAMINOPHEN/HYDROcodone 325 MG/5 MG TAB PO PRN ×4 (00:33→20:56)
[2016-12-03] MEDS: metroNIDAZOLE 500 MG INJ 100 ML IV SCH ×2 (06:16→12:33)
[2016-12-03 06:40] LABS: HEMATOCRIT 26.3 % (35.0-46.0); MEAN CELL VOLUME 78.2 FL (80.0-100.0); MEAN CORPUSCULAR HEMOGLOBIN 25.3 PG (27.0-34.0); MEAN CORPUSCULAR HGB CONC 32.4 % (32.0-36.0); PLATELET COUNT 92 TH/MM3 (150-450); RED BLOOD COUNT 3.37 MIL/MM3 (4.00-5.30); RED CELL DISTRIBUTION WIDTH 24.3 % (11.6-17.2); WHITE BLOOD COUNT 1.4 TH/MM3 (4.0-11.0)
[2016-12-03 06:43] LABS: HEMO FLAGS AUTO DIFF
[2016-12-03 06:45] LABS: POTASSIUM 3.5 MEQ/L (3.5-5.1)
[2016-12-03 06:49] LABS: BICARBONATE 24.8 MEQ/L (21.0-32.0)
[2016-12-03 07:16] LABS: EOSINOPHILS 3 % (0-4); NEUTROPHIL # MANUAL DIFF 0.7 TH/MM3 (1.8-7.7); PLATELET ESTIMATE SMEAR LOW (NORMAL); PLATELET MORPHOLOGY NORMAL (NORMAL); POLYS (SEG NEUTROPHILS) 47 % (16-70); SCAN/DIFF FINAL DIFF MANUAL; WBC DIFF SAMPLE 100
--- NOTE | 2016-12-03 08:14 | HHI.PR ---
Objective Vitals Vital Signs Date Time Temp Pulse Resp B/P Pulse Ox O2 Delivery O2 Flow Rate FiO2 12/03/16 04:00 97.5 103 16 121/85 93 12/03/16 00:00 98.0 101 16 99/64 96 12/02/16 20:00 99 12/02/16 20:00 98.1 100 16 104/75 96 12/02/16 18:41 18 12/02/16 16:00 97.7 81 17 125/65 96 12/02/16 13:34 19 12/02/16 12:00 98.1 99 17 118/81 94 I/O 12/02/16 12/02/16 12/02/16 12/03/16 12/03/16 12/03/16 07:00 15:00 23:00 07:00 15:00 23:00 Intake Total 0 ml 550 ml 540 ml Balance 0 ml 550 ml 540 ml Intake Oral 0 ml 550 ml 420 ml IV Total 120 ml # Voids 1 2 # Bowel Movements 0 Result Diagram: 12/03/16 0610 12/03/16 0610 Melba Garrett MD Dec 03, 2016 08:14
[2016-12-03] MEDS ORDERED: IRON SUCROSE 100 MG/5 ML VIAL IV PUSH ONE (08:15)
[2016-12-03] MEDS: METOPROLOL TARTRATE 25 MG TAB PO SCH ×2 (08:38→20:50)
[2016-12-03] MEDS: DILTIAZEM HCL 60 MG TAB PO SCH ×4 (08:38→20:49)
[2016-12-03] MEDS: FERROUS SULFATE 325 MG (65 MG ELEMENTAL IRON) TAB PO SCH ×2 (08:38→20:50)
[2016-12-03] MEDS: LACTOBACILLUS ACIDOPHILUS TAB PO SCH ×3 (08:38→17:51)
[2016-12-03] MEDS: ALPRAZolam 0.25 MG TAB PO PRN ×2 (08:39→17:51)
[2016-12-03] MEDS: SODIUM CHLORIDE 0.9% FLUSH 10 ML FLUSH IV FLUSH SCH ×2 (08:40→20:49)
[2016-12-03] MEDS ORDERED: IRON SUCROSE INJ 200 MG in SODIUM CHLORIDE 0.9% INJ 100 ML IV ONE (11:00)
--- NOTE | 2016-12-03 11:14 | HHI.PR ---
Subjective Remarks The patient is in bed. Says she was not able to sleep well last night. Says she had 3 bowel movements old diarrhea however he feels diarrhea is forming. She feels very tired. Denies shortness of breath or chest pain. No palpitations. Denies fevers or chills overnight. Pain is fairly controlled by medications. Objective Vitals Vital Signs Date Time Temp Pulse Resp B/P Pulse Ox O2 Delivery O2 Flow Rate FiO2 12/03/16 08:57 98.6 114 19 141/85 97 12/03/16 04:00 97.5 103 16 121/85 93 12/03/16 00:00 98.0 101 16 99/64 96 12/02/16 20:00 99 12/02/16 20:00 98.1 100 16 104/75 96 12/02/16 18:41 18 12/02/16 16:00 97.7 81 17 125/65 96 12/02/16 13:34 19 12/02/16 12:00 98.1 99 17 118/81 94 I/O 12/02/16 12/02/16 12/02/16 12/03/16 12/03/16 12/03/16 07:00 15:00 23:00 07:00 15:00 23:00 Intake Total 0 ml 550 ml 540 ml Balance 0 ml 550 ml 540 ml Intake Oral 0 ml 550 ml 420 ml IV Total 120 ml # Voids 1 2 # Bowel Movements 0 Result Diagram: 12/03/16 0610 12/03/16 0610 Imaging Last Impressions Chest X-Ray 12/01/162119 Signed Impressions: Service Date/Time: Thursday, December 01, 2016 21:44 - CONCLUSION: Compensated cardiomegaly otherwise negative Board Certified Radiologist. This report was verified electronically. Objective Remarks GENERAL: This is a well-nourished, well-developed patient, in no apparent distress. CARDIOVASCULAR: Incision from recent pericardial window surgery is healing well no signs of infection. Regular rate and rhythm without murmurs, gallops, or rubs. RESPIRATORY: Clear to auscultation. Breath sounds equal bilaterally. No wheezes , rales, or rhonchi. GASTROINTESTINAL: Abdomen soft, non-tender, nondistended. No hepato-splenomegaly , or palpable masses. No guarding. MUSCULOSKELETAL: Extremities without clubbing, cyanosis, or edema. No joint tenderness, effusion, or edema noted. No calf tenderness. Negative Homans sign bilaterally. NEUROLOGICAL: Awake and alert. Cranial nerves II through XII intact. Motor and sensory grossly within normal limits. Five out of 5 muscle strength in all muscle groups. Normal speech. A/P Assessment and Plan Enteritis Neutropenia/Pancytopenia Recent prolonged antibiotic use 2/2 pericarditis with MRSA. Pericardial effusion s/p pericardial window 11/22/16 Chest x-ray shows compensated cardiomegaly Hemoglobin is 8. WBC 1.5 on admission . Neutrophil count 0.9 on admission Stop vanco Start metronodazole Antiemetics . Started Lactinex. Pain medications per pain scale Consult ID for evaluation, review of antibiotics and recommendations Consult hem/onc for recommendations. Discussed with Dr Blandon from hem/onc . Recommends further work up for anemia and also to discontinue vancomycin. Patient was found iron deficiency. Start benefit IV Chronic medical problems appears stable at this time depression/bipolar disorder , HTN, liver cirrhosis, hepatitis C treated with Harvoni. Restart home meds. DVT ppx SCD/TEDs Discussed with the patient, nurse Melba Garrett MD Dec 03, 2016 11:13
--- NOTE | 2016-12-03 13:50 | PD.ID.CON ---
History of Present Illness Service ID Consult Requested By Dr Garrett Reason for Consult Enteritis Primary Care Physician Non-Staff Diagnoses: History of Present Illness This 51-year-old female with PMH of liver cirrhosis, hepatitis C treated with Harvoni She was recently hsopitalised with MRSA purulent pericarditis s/p pericardial window 11/22/16, sp vancomycin - started on November 08 and stopped yday, she developped pancytopenia, She presetned with 5 days complaining of diarrhea, 3-4 liquid BMs She cont to have pain and diarrhea Review of Systems Except as stated in HPI: all other systems reviewed are Neg Past Family Social History Allergies: Coded Allergies: Penicillin (Verified Allergy, Severe, FEVER, 12/01/16) *MDRO Multi-Drug Resistant Organism (Verified Adverse Reaction, Unknown, ) MRSA (leg) - 08/20/08 MRSA PCR Screen POSITIVE - 06/17/2016 Past Medical History depression/bipolar disorder, HTN Pericardial effusion s/p pericardial window 11/22/16, pancytopenia, depression/ bipolar disorder, HTN, liver cirrhosis, hepatitis C treated with Harvoni, Past Surgical History Cholecystectomy 2010 Pericardial window 11/22/16 C - section x2 Tubal ligation Banding for esophageal varices Active Ordered Medications Medications where reviewed in EMR Antibiotics Include: vanco flagyl Family History Colon cancer runs in family. Cardiac problems runs in family, unspecified. Social History Tobacco use 1/2 PPD H/o IVDA Occasional EtOH use Physical Exam Vital Signs Vital Signs Date Time Temp Pulse Resp B/P Pulse Ox O2 Delivery O2 Flow Rate FiO2 12/03/16 12:53 98.3 83 19 93/60 95 12/03/16 08:57 98.6 114 19 141/85 97 12/03/16 04:00 97.5 103 16 121/85 93 12/03/16 00:00 98.0 101 16 99/64 96 12/02/16 20:00 99 12/02/16 20:00 98.1 100 16 104/75 96 12/02/16 18:41 18 12/02/16 16:00 97.7 81 17 125/65 96 Physical Exam CONSTITUTIONAL/GENERAL: This is an adequately nourished patient, in no apparent distress. TUBES/LINES/DRAINS: SKIN: No jaundice, rashes, or lesions. Skin temperature appropriate. Not diaphoretic. HEAD: Atraumatic. Normocephalic. EYES: Pupils equal and round and reactive. Extraocular motions intact. No scleral icterus. No injection or drainage. Fundi not examined. ENT: Hearing grossly normal. Nose without bleeding or purulent drainage. Throat without visible erythema, exudates, masses, or lesions. NECK: Trachea midline. Supple, nontender. No palpable thyroid enlargement or nodularity. CARDIOVASCULAR: Regular rate and rhythm without murmurs, gallops, or rubs. No JVD. Peripheral pulses symmetric. RESPIRATORY/CHEST: Symmetric, unlabored respirations. Clear to auscultation. Breath sounds equal bilaterally. No wheezes, rales, or rhonchi. GASTROINTESTINAL: Abdomen soft, moderately tender R side, quite distended. No hepato-splenomegaly, or palpable masses. No guarding. Bowel sounds present. GENITOURINARY: Without palpable bladder distension. MUSCULOSKELETAL: Extremities without clubbing, cyanosis, or edema. No joint tenderness or effusion noted. No calf tenderness. No mottling or clubbing. LYMPHATICS: No palpable cervical or supraclavicular adenopathy. NEUROLOGICAL: Awake and alert. Motor and sensory grossly within normal limits. Follows commands. Clear speech. Moves all extremities. PSYCHIATRIC: No obvious anxiety/depression. no apparent hallucinations or other psychotic thought process. Laboratory Laboratory Tests Test 12/03/16 06:10 White Blood Count 1.4 Red Blood Count 3.37 Hemoglobin 8.5 Hematocrit 26.3 Mean Corpuscular Volume 78.2 Mean Corpuscular Hemoglobin 25.3 Mean Corpuscular Hemoglobin 32.4 Concent Red Cell Distribution Width 24.3 Platelet Count 92 Mean Platelet Volume 8.2 Neutrophils (%) (Auto) Lymphocytes (%) (Auto) Monocytes (%) (Auto) Eosinophils (%) (Auto) Basophils (%) (Auto) Neutrophils # (Auto) Lymphocytes # (Auto) Monocytes # (Auto) Eosinophils # (Auto) Basophils # (Auto) CBC Comment AUTO DIFF Differential Total Cells 100 Counted Neutrophils % (Manual) 47 Lymphocytes % 29 Monocytes % 21 Eosinophils % 3 Neutrophils # (Manual) 0.7 Differential Comment FINAL DIFF MANUAL Platelet Estimate LOW Platelet Morphology Comment NORMAL Sodium Level 143 Potassium Level 3.5 Chloride Level 111 Carbon Dioxide Level 24.8 Anion Gap 7 Blood Urea Nitrogen 4 Creatinine 0.54 Estimat Glomerular Filtration 119 Rate Random Glucose 98 Calcium Level 7.5 Date/Time Procedure Status Source Growth 12/01/16 22:00 - Final Complete Stool Stool NO ENTERIC PATHOGENS DETECTED BY PCR... 12/01/16 21:40 Aerobic Blood Culture - Preliminary Resulted Blood Peripheral NO GROWTH IN 2 DAYS 12/01/16 21:40 Anaerobic Blood Culture - Preliminary Resulted Blood Peripheral NO GROWTH IN 2 DAYS Result Diagram: 12/03/16 0610 12/03/16 0610 Imaging Last Impressions Chest X-Ray 12/01/162119 Signed Impressions: Service Date/Time: Tuesday, December 01, 2016 21:44 - CONCLUSION: Compensated cardiomegaly otherwise negative Board Certified Radiologist. This report was verified electronically. MD Assessment and Plan Assessment and Plan Purulent pericarditis, sp 4 weeks of vancomycin tx bl clx neg Liver cirrhsois Pnacytopenic, neutropenia ? vancomycin contributing gastroenteritis Diarrhea, recent abx use, C.diff neg neg C.diff, neg stool path's chk abdominal CT fu blood clx untill final stool studies - fu ANC hold vancomycin (pancytopenia) dc flagyl (neutropenia) Discussed Condition With Alma Sebastian Dr, RN, MD Dec 03, 2016 13:50
[2016-12-03] MEDS ORDERED: DIATRIZOATE MEGLUM/DIATRIZOATE SOD 9 ML CUP PO ONE (18:30)
[2016-12-03] MEDS ORDERED: IOHEXOL 350 MG/ML 10 ML VIAL (for RAD DIAG) IV ONE (21:36)
--- NOTE | 2016-12-03 21:49 | RADRPT ---
EXAM DATE/TIME: 12/03/2016 21:08 [facility] COMPARISON: CT ABDOMEN & PELVIS W CONTRAST, June 18, 2016, 1:37. INDICATIONS : Enteritis, Pancytopenia, abdominal pain status pot pericardial window. IV CONTRAST: 80 cc Omnipaque 350 (iohexol) IV ORAL CONTRAST: Prescribed oral contrast ingested. RADIATION DOSE: 19.74 CTDIvol (mGy) MEDICAL HISTORY : Cirrhosis. Hypertension. Hepatitis C. SURGICAL HISTORY : Cholecystectomy. section.Tubal ligation.pericardial window ENCOUNTER: Initial ACUITY: 2 days PAIN SCALE: 8/10 LOCATION: medial abdomen TECHNIQUE: Volumetric scanning of the abdomen and pelvis was performed. Using automated exposure control and ad justment of the mA and/or kV according to patient size, radiation dose was kept as low as reasonably achievable to obtain optimal diagnostic quality images. DICOM format image data is available electro nically for review and comparison. FINDINGS: Cirrhosis and marked splenomegaly again noted. Portal vein is patent. Moderate ascites has developed. Portosystemic collaterals including esophageal varices are noted. Pancreas, adrenal glands and kidneys are within normal limits. No obstruction or acute inflammatory c hanges seen in the gastrointestinal tract. Lower chest only partly included on this study. Very small bilateral pleural effusions are present. T here is a small intermediate attenuation pericardial effusion partially seen as well. CONCLUSION: 1. Cirrhosis and marked splenomegaly with portosystemic collaterals similar to before. 2. Moderate ascites, new. 3. Small pericardial effusion present and appears to be hemorrhagic. Very small, low-attenuation bila teral pleural effusions are also seen. Bi James MD on December 03, 2016 at 21:45 Board Certified Radiologist. This report was verified electronically.
[2016-12-04] VITALS: BP 113/76; PULSE 95; RESP 18; TEMP 96.1; O2SAT 98
[2016-12-04] MEDS: ACETAMINOPHEN/HYDROcodone 325 MG/5 MG TAB PO PRN ×3 (03:46→17:56)
[2016-12-04] MEDS: ALPRAZolam 0.25 MG TAB PO PRN ×2 (03:46→17:56)
[2016-12-04 04:00] VITALS: BP 113/71; PULSE 103; RESP 16; TEMP 98.7; O2SAT 94
[2016-12-04] MEDS ORDERED: VANCOMYCIN TROUGH ONE (05:45)
[2016-12-04 07:23] LABS: AUTOMATED NEUTROPHIL # 0.6 TH/MM3 (1.8-7.7); BASOPHIL % 0.8 % (0.0-2.0); EOSINOPHIL % 3.4 % (0.0-4.0); HEMATOCRIT 28.3 % (35.0-46.0); LYMPH % 31.8 % (9.0-44.0); LYMPHOCYTE # 0.4 TH/MM3 (1.0-4.8); MEAN CELL VOLUME 77.7 FL (80.0-100.0); MEAN CORPUSCULAR HEMOGLOBIN 24.9 PG (27.0-34.0); MONO % 29.4 % (0.0-8.0); NEUT % 34.6 % (16.0-70.0); PLATELET COUNT 89 TH/MM3 (150-450); RED BLOOD COUNT 3.64 MIL/MM3 (4.00-5.30); RED CELL DISTRIBUTION WIDTH 23.7 % (11.6-17.2); WHITE BLOOD COUNT 1.4 TH/MM3 (4.0-11.0)
[2016-12-04 07:27] LABS: HEMO FLAGS AUTO DIFF
[2016-12-04 07:30] LABS: POTASSIUM 3.5 MEQ/L (3.5-5.1)
[2016-12-04 07:35] LABS: BICARBONATE 25.9 MEQ/L (21.0-32.0)
[2016-12-04 08:02] VITALS: BP 107/71; PULSE 99; RESP 20; TEMP 97.9; O2SAT 96
[2016-12-04 08:14] LABS: BASOPHILS 2 % (0-2); NEUTROPHIL # MANUAL DIFF 0.6 TH/MM3 (1.8-7.7); POLYS (SEG NEUTROPHILS) 44 % (16-70); SCAN/DIFF FINAL DIFF MANUAL; WBC DIFF SAMPLE 100
[2016-12-04] MEDS: IRON SUCROSE INJ 100 MG in SODIUM CHLORIDE 0.9% INJ 100 ML IV SCH (09:20)
[2016-12-04] MEDS: SODIUM CHLORIDE 0.9% FLUSH 10 ML FLUSH IV FLUSH SCH ×2 (09:20→21:00)
[2016-12-04] MEDS: DILTIAZEM HCL 60 MG TAB PO SCH ×4 (09:20→21:22)
[2016-12-04] MEDS: LACTOBACILLUS ACIDOPHILUS TAB PO SCH ×3 (09:20→17:56)
[2016-12-04] MEDS: METOPROLOL TARTRATE 25 MG TAB PO SCH ×2 (09:20→21:22)
[2016-12-04] MEDS: FERROUS SULFATE 325 MG (65 MG ELEMENTAL IRON) TAB PO SCH ×2 (09:20→21:22)
[2016-12-04] MEDS: ONDANSETRON HCL 4 MG/2 ML VIAL IV PUSH PRN ×2 (09:41→17:56)
[2016-12-04 12:00] VITALS: BP 109/73; PULSE 96; RESP 20; TEMP 98.2; O2SAT 96
[2016-12-04 16:00] VITALS: BP 111/73; PULSE 83; RESP 20; TEMP 98; O2SAT 96
--- NOTE | 2016-12-04 16:23 | HHI.PR ---
Subjective Remarks Was seen and evaluated today in follow-up for pancytopenia case discussed with ID team recommended surveillance off antibiotics given negative cultures in negative symptoms. Hematology consultation appreciated continue to replace iron and follow clinical progress Objective Vitals Vital Signs Date Time Temp Pulse Resp B/P Pulse Ox O2 Delivery O2 Flow Rate FiO2 12/04/16 12:00 98.2 96 20 109/73 96 12/04/16 08:02 97.9 99 20 107/71 96 12/04/16 04:00 98.7 103 16 113/71 94 12/04/16 00:00 96.1 95 18 113/76 98 12/03/16 20:00 97.3 85 18 107/78 98 12/03/16 19:30 83 12/03/16 17:06 98.2 82 19 88/59 95 I/O 12/03/16 12/03/16 12/03/16 12/04/16 12/04/16 12/04/16 07:00 15:00 23:00 07:00 15:00 23:00 Intake Total 540 ml 1230 ml 400 ml 650 ml Balance 540 ml 1230 ml 400 ml 650 ml Intake Oral 420 ml 1230 ml 400 ml 650 ml IV Total 120 ml # Voids 2 6 3 5 # Bowel Movements 0 3 0 0 Result Diagram: 12/04/1661612/04/16616 Imaging GENERAL: This is a well-nourished, well-developed patient, in no apparent distress. CARDIOVASCULAR: Regular rate and rhythm without murmurs, gallops, or rubs. RESPIRATORY: Clear to auscultation. Breath sounds equal bilaterally. No wheezes , rales, or rhonchi. GASTROINTESTINAL: Abdomen soft, non-tender, nondistended. Normal active bowel sounds MUSCULOSKELETAL: Extremities without clubbing, cyanosis, or edema. NEURO: Alert & Oriented x4 to person, place, time, situation. Moves all ext x4 A/P Problem List: (1) Pancytopenia ICD Code: D61.818 Status: Acute Plan: No evidence of infection. Worrisome for bone marrow suppression after recent antibiotics. Hematology consult appreciated. We'll follow trend May need bone marrow biopsy Replace iron (2) Hepatic cirrhosis ICD Code: K74.60 Status: Acute Plan: With a history of alcohol and hepatitis C treated with Beryl Taylor MD Dec 04, 2016 16:22
[2016-12-04 20:00] VITALS: BP 103/74; PULSE 85; RESP 16; TEMP 96.7; O2SAT 96
--- NOTE | 2016-12-04 20:35 | HHI.IDPN ---
Subjective Subjective Remarks diarrhea resolved afebrile no new co ANC 600 Antibiotics none Allergies: Coded Allergies: Penicillin (Verified Allergy, Severe, FEVER, 12/01/16) *MDRO Multi-Drug Resistant Organism (Verified Adverse Reaction, Unknown, ) MRSA (leg) - 08/20/08 MRSA PCR Screen POSITIVE - 06/17/2016 Objective . Vital Signs Date Time Temp Pulse Resp B/P Pulse Ox O2 Delivery O2 Flow Rate FiO2 12/04/16 16:00 98.0 83 20 111/73 96 12/04/16 12:00 98.2 96 20 109/73 96 12/04/16 08:02 97.9 99 20 107/71 96 12/04/16 04:00 98.7 103 16 113/71 94 12/04/16 00:00 96.1 95 18 113/76 98 12/03/16 12/03/16 12/04/16 15:00 23:00 07:00 Intake Total 1230 ml 400 ml Balance 1230 ml 400 ml Intake Oral 1230 ml 400 ml # Voids 6 3 # Bowel Movements 3 0 . Laboratory Tests Test 12/03/16 12/04/16 06:10 06:17 White Blood Count 1.4 TH/MM3 1.4 TH/MM3 Red Blood Count 3.37 MIL/MM3 3.64 MIL/MM3 Hemoglobin 8.5 GM/DL 9.1 GM/DL Hematocrit 26.3 % 28.3 % Mean Corpuscular Volume 78.2 FL 77.7 FL Mean Corpuscular Hemoglobin 25.3 PG 24.9 PG Mean Corpuscular Hemoglobin 32.4 % 32.0 % Concent Red Cell Distribution Width 24.3 % 23.7 % Platelet Count 92 TH/MM3 89 TH/MM3 Mean Platelet Volume 8.2 FL 7.5 FL Neutrophils (%) (Auto) % 34.6 % Lymphocytes (%) (Auto) % 31.8 % Monocytes (%) (Auto) % 29.4 % Eosinophils (%) (Auto) % 3.4 % Basophils (%) (Auto) % 0.8 % Neutrophils # (Auto) TH/MM3 0.6 TH/MM3 Lymphocytes # (Auto) TH/MM3 0.4 TH/MM3 Monocytes # (Auto) TH/MM3 0.4 TH/MM3 Eosinophils # (Auto) TH/MM3 0.0 TH/MM3 Basophils # (Auto) TH/MM3 0.0 TH/MM3 CBC Comment AUTO DIFF AUTO DIFF Differential Total Cells 100 100 Counted Neutrophils % (Manual) 47 % 44 % Lymphocytes % 29 % 29 % Monocytes % 21 % 25 % Eosinophils % 3 % Neutrophils # (Manual) 0.7 TH/MM3 0.6 TH/MM3 Differential Comment FINAL DIFF FINAL DIFF MANUAL MANUAL Platelet Estimate LOW Platelet Morphology Comment NORMAL Basophils % 2 % Laboratory Tests Test 12/03/16 12/04/16 06:10 06:17 Sodium Level 143 MEQ/L 142 MEQ/L Potassium Level 3.5 MEQ/L 3.5 MEQ/L Chloride Level 111 MEQ/L 109 MEQ/L Carbon Dioxide Level 24.8 MEQ/L 25.9 MEQ/L Anion Gap 7 MEQ/L 7 MEQ/L Blood Urea Nitrogen 4 MG/DL 4 MG/DL Creatinine 0.54 MG/DL 0.54 MG/DL Estimat Glomerular Filtration 119 ML/MIN 119 ML/MIN Rate Random Glucose 98 MG/DL 97 MG/DL Calcium Level 7.5 MG/DL 7.7 MG/DL Microbiology Date/Time Procedure Status Source Growth 12/01/16 21:35 Aerobic Blood Culture - Preliminary Resulted Blood Peripheral NO GROWTH IN 3 DAYS 12/01/16 21:35 Anaerobic Blood Culture - Preliminary Resulted Blood Peripheral NO GROWTH IN 3 DAYS 12/01/16 21:40 Aerobic Blood Culture - Preliminary Resulted Blood Peripheral NO GROWTH IN 3 DAYS 12/01/16 21:40 Anaerobic Blood Culture - Preliminary Resulted Blood Peripheral NO GROWTH IN 3 DAYS 12/01/16 22:00 - Final Complete Stool Stool NO ENTERIC PATHOGENS DETECTED BY PCR... Imaging Last Impressions Abdomen/Pelvis CT 12/03/16 0000 Signed Impressions: Service Date/Time: Saturday, December 03, 2016 21:08 - CONCLUSION: 1. Cirrhosis and marked splenomegaly with portosystemic collaterals similar to before. 2. Moderate ascites, new. 3. Small pericardial effusion present and appears to be hemorrhagic. Very small, low-attenuation bilateral pleural effusions are also seen. Bi James MD Chest X-Ray 12/01/162119 Signed Impressions: Service Date/Time: Thursday, December 01, 2016 21:44 - CONCLUSION: Compensated cardiomegaly otherwise negative Board Certified Radiologist. This report was verified electronically. Physical Exam CONSTITUTIONAL/GENERAL: This is an adequately nourished patient, in no apparent distress. TUBES/LINES/DRAINS:PICC in place LUE wo e/o infx SKIN: No jaundice, rashes, or lesions. EYES: No scleral icterus. CARDIOVASCULAR: Regular rate and rhythm without murmurs, gallops, or rubs. No JVD. Peripheral pulses symmetric. RESPIRATORY/CHEST: Symmetric, unlabored respirations. Clear to auscultation. Breath sounds equal bilaterally. No wheezes, rales, or rhonchi. GASTROINTESTINAL: Abdomen soft, mildly tender R side, quite distended. No hepato -splenomegaly, or palpable masses. No guarding. Bowel sounds present. GENITOURINARY: Without palpable bladder distension. MUSCULOSKELETAL: Extremities without clubbing, cyanosis, or edema. No joint tenderness or effusion noted. No calf tenderness. No mottling or clubbing. NEUROLOGICAL: Awake and alert. Motor and sensory grossly within normal limits. Follows commands. Clear speech. Moves all extremities. PSYCHIATRIC: No obvious anxiety/depression. no apparent hallucinations or other psychotic thought process. Assessment & Plan Remarks Purulent pericarditis, sp 4 weeks of vancomycin tx bl clx neg Liver cirrhsois - new ascites on CT Pnacytopenic, neutropenia ? vancomycin contributing gastroenteritis Diarrhea, recent abx use, C.diff neg neg C.diff, neg stool path's monitor off abx Dc PICC fu blood clx untill final fu ANC dw Dr Bianchi will follow as needed; please call if any questions Alma Wade MD Dec 04, 2016 20:35
[2016-12-05] VITALS: BP 105/72; PULSE 75; RESP 16; TEMP 97.1; O2SAT 96
[2016-12-05] MEDS: ACETAMINOPHEN/HYDROcodone 325 MG/5 MG TAB PO PRN ×3 (02:14→18:35)
[2016-12-05] MEDS: ALPRAZolam 0.25 MG TAB PO PRN ×3 (02:14→20:15)
[2016-12-05 08:19] VITALS: BP 109/73; PULSE 74; RESP 19; TEMP 97.7; O2SAT 97
--- NOTE | 2016-12-05 09:51 | HHI.PR ---
Subjective Remarks Patient seen today in follow-up for pancytopenia and for abdominal discomfort. No new events overnight. Awaiting labs this morning Objective Vitals Vital Signs Date Time Temp Pulse Resp B/P Pulse Ox O2 Delivery O2 Flow Rate FiO2 12/05/16 08:19 97.7 74 19 109/73 97 12/05/16 00:00 97.1 75 16 105/72 96 12/04/16 20:00 96.7 85 16 103/74 96 12/04/16 16:00 98.0 83 20 111/73 96 12/04/16 12:00 98.2 96 20 109/73 96 I/O 12/04/16 12/04/16 12/04/16 12/05/16 12/05/16 12/05/16 07:00 15:00 23:00 07:00 15:00 23:00 Intake Total 400 ml 650 ml 480 ml 0 ml Balance 400 ml 650 ml 480 ml 0 ml Intake Oral 400 ml 650 ml 480 ml 0 ml IV Total 0 ml 0 ml # Voids 3 5 2 1 # Bowel Movements 0 0 1 0 Result Diagram: 12/04/16 0617 12/04/16 0617 Imaging Last Impressions Abdomen/Pelvis CT 12/03/16 0000 Signed Impressions: Service Date/Time: Saturday, December 03, 2016 21:08 - CONCLUSION: 1. Cirrhosis and marked splenomegaly with portosystemic collaterals similar to before. 2. Moderate ascites, new. 3. Small pericardial effusion present and appears to be hemorrhagic. Very small, low-attenuation bilateral pleural effusions are also seen. Bi James MD Chest X-Ray 12/01/162119 Signed Impressions: Service Date/Time: Thursday, December 01, 2016 21:44 - CONCLUSION: Compensated cardiomegaly otherwise negative Board Certified Radiologist. This report was verified electronically. Objective Remarks GENERAL: This is a well-nourished, well-developed patient, in no apparent distress. CARDIOVASCULAR: Regular rate and rhythm without murmurs, gallops, or rubs. RESPIRATORY: Clear to auscultation. Breath sounds equal bilaterally. No wheezes , rales, or rhonchi. GASTROINTESTINAL: Abdomen soft, non-tender, nondistended. Normal active bowel sounds MUSCULOSKELETAL: Extremities without clubbing, cyanosis, or edema. NEURO: Alert & Oriented x4 to person, place, time, situation. Moves all ext x4 A/P Problem List: (1) Pancytopenia ICD Code: D61.818 Status: Acute Plan: No evidence of infection. Worrisome for bone marrow suppression after recent antibiotics. Hematology consult appreciated. We'll follow trend May need bone marrow biopsy Replace iron (2) Hepatic cirrhosis ICD Code: K74.60 Status: Acute Plan: With a history of alcohol and hepatitis C treated with harvoni Assessment and Plan Follow trend of blood counts Beryl Bianchi MD Dec 05, 2016 09:51
[2016-12-05 10:00] LABS: AUTOMATED NEUTROPHIL # 0.6 TH/MM3 (1.8-7.7); BASOPHIL % 1.7 % (0.0-2.0); EOSINOPHIL # 0.1 TH/MM3 (0-0.4); EOSINOPHIL % 4.3 % (0.0-4.0); LYMPH % 32.2 % (9.0-44.0); LYMPHOCYTE # 0.7 TH/MM3 (1.0-4.8); MEAN CELL VOLUME 78.4 FL (80.0-100.0); MEAN CORPUSCULAR HEMOGLOBIN 24.7 PG (27.0-34.0); MEAN CORPUSCULAR HGB CONC 31.4 % (32.0-36.0); MONO % 25.3 % (0.0-8.0); NEUT % 36.5 % (16.0-70.0); PLATELET COUNT 93 TH/MM3 (150-450); RED BLOOD COUNT 4.21 MIL/MM3 (4.00-5.30); RED CELL DISTRIBUTION WIDTH 23.8 % (11.6-17.2); WHITE BLOOD COUNT 1.8 TH/MM3 (4.0-11.0)
[2016-12-05 10:01] LABS: HEMO FLAGS AUTO DIFF
[2016-12-05] MEDS: IRON SUCROSE INJ 100 MG in SODIUM CHLORIDE 0.9% INJ 100 ML IV SCH (10:19)
[2016-12-05] MEDS: SODIUM CHLORIDE 0.9% FLUSH 10 ML FLUSH IV FLUSH SCH ×2 (10:19→20:07)
[2016-12-05] MEDS: DILTIAZEM HCL 60 MG TAB PO SCH ×4 (10:19→20:07)
[2016-12-05] MEDS: LACTOBACILLUS ACIDOPHILUS TAB PO SCH ×3 (10:19→18:33)
[2016-12-05] MEDS: METOPROLOL TARTRATE 25 MG TAB PO SCH ×2 (10:19→20:07)
[2016-12-05] MEDS: FERROUS SULFATE 325 MG (65 MG ELEMENTAL IRON) TAB PO SCH ×2 (10:19→20:07)
[2016-12-05 10:36] LABS: EOSINOPHILS 6 % (0-4); NEUTROPHIL # MANUAL DIFF 0.9 TH/MM3 (1.8-7.7); POLYS (SEG NEUTROPHILS) 49 % (16-70); SCAN/DIFF FINAL DIFF MANUAL; WBC DIFF SAMPLE 100
[2016-12-05 12:26] VITALS: BP 103/67; PULSE 85; RESP 19; TEMP 97.7; O2SAT 99
[2016-12-05 16:24] VITALS: BP 101/73; PULSE 72; RESP 19; TEMP 98.8; O2SAT 95
[2016-12-05] MEDS: ONDANSETRON HCL 4 MG/2 ML VIAL IV PUSH PRN (20:15)
[2016-12-05 22:10] VITALS: BP 116/81; PULSE 84; RESP 16; TEMP 96.8; O2SAT 98
[2016-12-06 01:22] VITALS: BP 98/63; PULSE 67; RESP 18; TEMP 97.1; O2SAT 96
[2016-12-06] MEDS: ACETAMINOPHEN/HYDROcodone 325 MG/5 MG TAB PO PRN ×3 (05:53→20:33)
[2016-12-06 08:00] VITALS: BP 99/67; PULSE 84; RESP 16; TEMP 97.6; O2SAT 96
[2016-12-06] MEDS: METOPROLOL TARTRATE 25 MG TAB PO SCH ×2 (08:52→20:32)
[2016-12-06] MEDS: LACTOBACILLUS ACIDOPHILUS TAB PO SCH ×3 (08:52→17:34)
[2016-12-06] MEDS: ALPRAZolam 0.25 MG TAB PO PRN ×2 (08:52→20:33)
[2016-12-06] MEDS: FERROUS SULFATE 325 MG (65 MG ELEMENTAL IRON) TAB PO SCH ×2 (08:52→20:33)
[2016-12-06] MEDS: DILTIAZEM HCL 60 MG TAB PO SCH ×4 (08:52→20:33)
[2016-12-06] MEDS: SODIUM CHLORIDE 0.9% FLUSH 10 ML FLUSH IV FLUSH SCH ×2 (08:53→20:32)
[2016-12-06] MEDS: ONDANSETRON HCL 4 MG/2 ML VIAL IV PUSH PRN (08:53)
[2016-12-06] MEDS: IRON SUCROSE INJ 100 MG in SODIUM CHLORIDE 0.9% INJ 100 ML IV SCH (08:53)
[2016-12-06 11:27] LABS: AUTOMATED NEUTROPHIL # 0.9 TH/MM3 (1.8-7.7); BASOPHIL % 0.7 % (0.0-2.0); EOSINOPHIL # 0.1 TH/MM3 (0-0.4); HEMATOCRIT 29.7 % (35.0-46.0); LYMPH % 29.6 % (9.0-44.0); LYMPHOCYTE # 0.6 TH/MM3 (1.0-4.8); MEAN CELL VOLUME 77.9 FL (80.0-100.0); MEAN CORPUSCULAR HEMOGLOBIN 24.9 PG (27.0-34.0); MEAN CORPUSCULAR HGB CONC 31.9 % (32.0-36.0); MONO % 21.9 % (0.0-8.0); NEUT % 43.8 % (16.0-70.0); PLATELET COUNT 84 TH/MM3 (150-450); RED BLOOD COUNT 3.81 MIL/MM3 (4.00-5.30); RED CELL DISTRIBUTION WIDTH 23.8 % (11.6-17.2)
[2016-12-06 11:29] LABS: HEMO FLAGS AUTO DIFF
[2016-12-06 12:00] VITALS: BP 101/68; PULSE 82; RESP 16; TEMP 97.6; O2SAT 97
[2016-12-06 12:09] LABS: BANDS 2 % (0-6); EOSINOPHILS 2 % (0-4); NEUTROPHIL # MANUAL DIFF 1.3 TH/MM3 (1.8-7.7); POLYS (SEG NEUTROPHILS) 62 % (16-70); WBC DIFF SAMPLE 100
[2016-12-06 12:12] LABS: PLATELET ESTIMATE SMEAR LOW (NORMAL); PLATELET MORPHOLOGY NORMAL (NORMAL); SCAN/DIFF FINAL DIFF MANUAL
--- NOTE | 2016-12-06 12:54 | HHI.PR ---
Subjective Remarks Patient seen in follow-up for pancytopenia. No evidence of infection. Cell counts are improving daily. Patient feels better and is more ambulatory Objective Vitals Vital Signs Date Time Temp Pulse Resp B/P Pulse Ox O2 Delivery O2 Flow Rate FiO2 12/06/16 12:00 97.6 82 16 101/68 97 12/06/16 08:00 97.6 84 16 99/67 96 12/06/16 04:00 12/06/16 01:22 97.1 67 18 98/63 96 12/05/16 22:10 96.8 84 16 116/81 98 12/05/16 16:24 98.8 72 19 101/73 95 I/O 12/05/16 12/05/16 12/05/16 12/06/16 12/06/16 12/06/16 07:00 15:00 23:00 07:00 15:00 23:00 Intake Total 0 ml 950 ml 0 ml Balance 0 ml 950 ml 0 ml Intake Oral 0 ml 950 ml IV Total 0 ml 0 ml 0 ml # Voids 1 6 3 # Bowel Movements 0 1 Result Diagram: 12/06/16 1115 12/04/16 0617 Objective Remarks GENERAL: This is a well-nourished, well-developed patient, in no apparent distress. CARDIOVASCULAR: Regular rate and rhythm without murmurs, gallops, or rubs. RESPIRATORY: Clear to auscultation. Breath sounds equal bilaterally. No wheezes , rales, or rhonchi. GASTROINTESTINAL: Abdomen soft, non-tender, nondistended. Normal active bowel sounds MUSCULOSKELETAL: Extremities without clubbing, cyanosis, or edema. NEURO: Alert & Oriented x4 to person, place, time, situation. Moves all ext x4 A/P Problem List: (1) Pancytopenia ICD Code: D61.818 Status: Acute Plan: No evidence of infection. Worrisome for bone marrow suppression after recent antibiotics. Hematology consult appreciated. We'll follow trend Improved Replace iron (2) Hepatic cirrhosis ICD Code: K74.60 Status: Acute Plan: With a history of alcohol and hepatitis C treated with harvoni Assessment and Plan Follow trend of blood counts Discharge Planning If she continues to improve likely discharge home in Beryl Spears MD Dec 06, 2016 12:54
[2016-12-06 16:00] VITALS: BP 106/63; PULSE 82; RESP 16; TEMP 96.9; O2SAT 95
[2016-12-06 20:00] VITALS: BP 103/75; PULSE 97; RESP 16; TEMP 98.3; O2SAT 98
[2016-12-07] VITALS: BP 101/65; PULSE 73; RESP 18; TEMP 97.1; O2SAT 95
[2016-12-07] MEDS: ACETAMINOPHEN/HYDROcodone 325 MG/5 MG TAB PO PRN (06:36)
[2016-12-07 07:08] LABS: AUTOMATED NEUTROPHIL # 0.9 TH/MM3 (1.8-7.7); BASOPHIL % 1.2 % (0.0-2.0); EOSINOPHIL # 0.1 TH/MM3 (0-0.4); EOSINOPHIL % 4.8 % (0.0-4.0); HEMATOCRIT 31.6 % (35.0-46.0); LYMPH % 28.3 % (9.0-44.0); LYMPHOCYTE # 0.5 TH/MM3 (1.0-4.8); MEAN CELL VOLUME 78.4 FL (80.0-100.0); MEAN CORPUSCULAR HEMOGLOBIN 24.4 PG (27.0-34.0); MEAN CORPUSCULAR HGB CONC 31.2 % (32.0-36.0); MONO % 21.3 % (0.0-8.0); NEUT % 44.4 % (16.0-70.0); PLATELET COUNT 88 TH/MM3 (150-450); RED BLOOD COUNT 4.02 MIL/MM3 (4.00-5.30); RED CELL DISTRIBUTION WIDTH 23.7 % (11.6-17.2); WHITE BLOOD COUNT 1.9 TH/MM3 (4.0-11.0)
[2016-12-07 07:14] LABS: HEMO FLAGS AUTO DIFF
[2016-12-07 07:41] LABS: BANDS 1 % (0-6); EOSINOPHILS 1 % (0-4); NEUTROPHIL # MANUAL DIFF 1.2 TH/MM3 (1.8-7.7); PLATELET ESTIMATE SMEAR LOW (NORMAL); PLATELET MORPHOLOGY NORMAL (NORMAL); POLYS (SEG NEUTROPHILS) 63 % (16-70); SCAN/DIFF FINAL DIFF MANUAL; WBC DIFF SAMPLE 100
[2016-12-07 08:00] VITALS: BP 102/62; PULSE 83; RESP 18; TEMP 97.1; O2SAT 97
[2016-12-07] MEDS: LACTOBACILLUS ACIDOPHILUS TAB PO SCH (08:50)
[2016-12-07] MEDS: ALPRAZolam 0.25 MG TAB PO PRN (08:50)
[2016-12-07] MEDS: SODIUM CHLORIDE 0.9% FLUSH 10 ML FLUSH IV FLUSH SCH (08:50)
[2016-12-07] MEDS: FERROUS SULFATE 325 MG (65 MG ELEMENTAL IRON) TAB PO SCH (08:50)
[2016-12-07] MEDS ORDERED: DILTIAZEM HCL 60 MG TAB PO SCH (09:00)
[2016-12-07] MEDS ORDERED: METOPROLOL TARTRATE 25 MG TAB PO SCH ×2 (09:00→21:00)
--- NOTE | 2016-12-07 11:00 | HHI.DCPOC ---
Discharge Care Plan Diagnosis: (1) Pancytopenia (2) Neutropenia Goals to Promote Your Health * To prevent worsening of your condition and complications * To maintain your health at the optimal level Directions to Meet Your Goals Take your medications as prescribed Follow your dietary instruction Follow activity as directed Keep your appointments as scheduled Take your immunizations and boosters as scheduled If your symptoms worsen call your PCP, if no PCP go to Urgent Care Center or Emergency Room Smoking is Dangerous to Your Health. Avoid second hand smoke Call the 24-hour hour crisis hotline for domestic abuse at Beryl Bianchi MD Dec 07, 2016 11:00
[2016-12-07] MEDS ORDERED: CARD120C4 PO (11:04)
[2016-12-07] MEDS ORDERED: METO25TA3 PO (11:04)
[2016-12-07] MEDS ORDERED: FERR325T20 PO (11:06)
--- NOTE | 2016-12-07 11:06 | HHI.DS ---
Discharge Summary Admission Date Dec 01, 2016 at 23:38 Discharge Date: Dec 07, 2016 Admitting Diagnosis ENTERITIS, PANCYTOPENIA (1) Pancytopenia ICD Code: D61.818 (2) Hepatic cirrhosis ICD Code: K74.60 Procedures none Brief History - From Admission This 51-year-old female with PMH of pericardial effusion s/p pericardial window 11/22/16, pancytopenia, depression/bipolar disorder, HTN, liver cirrhosis, hepatitis C treated with Harvoni, is complaining of diarrhea. Her diarrhea has been going on for a few days. She was admitted to [facility] at the beginning of this month. 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 She was on multiple antibiotics and has been discharged with a PICC line. She is getting daily vancomycin. She has been having some pain since she was sent home. She was sent home with Polimax which she says helped her pain however she has run out of the Polimax. She has a history of hepatitis C. She has been a drinker in the past. She has a history of cirrhosis. She currently PICC line and is getting vancomycin as daily though she did not get up today. She has the sutures from her pericardial window remove the other day. She's been having diarrhea for the last 2 days. She is feeling very weak CBC/BMP: 12/07/16 0515 12/04/16 0617 Significant Findings Laboratory Tests Test 12/05/16 12/06/16 12/07/16 09:40 11:15 05:15 White Blood Count 1.8 TH/MM3 2.0 TH/MM3 1.9 TH/MM3 (4.0-11.0) (4.0-11.0) (4.0-11.0) Hemoglobin 10.4 GM/DL 9.5 GM/DL 9.8 GM/DL (11.6-15.3) (11.6-15.3) (11.6-15.3) Hematocrit 33.0 % 29.7 % 31.6 % (35.0-46.0) (35.0-46.0) (35.0-46.0) Mean Corpuscular Volume 78.4 FL 77.9 FL 78.4 FL (80.0-100.0) (80.0-100.0) (80.0-100.0) Mean Corpuscular Hemoglobin 24.7 PG 24.9 PG 24.4 PG (27.0-34.0) (27.0-34.0) (27.0-34.0) Mean Corpuscular Hemoglobin 31.4 % 31.9 % 31.2 % Concent (32.0-36.0) (32.0-36.0) (32.0-36.0) Red Cell Distribution Width 23.8 % 23.8 % 23.7 % (11.6-17.2) (11.6-17.2) (11.6-17.2) Platelet Count 93 TH/MM3 84 TH/MM3 88 TH/MM3 (150-450) (150-450) (150-450) Monocytes (%) (Auto) 25.3 % 21.9 % 21.3 % (0.0-8.0) (0.0-8.0) (0.0-8.0) Eosinophils (%) (Auto) 4.3 % (0.0-4.0) 4.8 % (0.0-4.0) Neutrophils # (Auto) 0.6 TH/MM3 0.9 TH/MM3 0.9 TH/MM3 (1.8-7.7) (1.8-7.7) (1.8-7.7) Lymphocytes # (Auto) 0.7 TH/MM3 0.6 TH/MM3 0.5 TH/MM3 (1.0-4.8) (1.0-4.8) (1.0-4.8) Monocytes % 29 % (0-8) 10 % (0-8) Eosinophils % 6 % (0-4) Neutrophils # (Manual) 0.9 TH/MM3 1.3 TH/MM3 1.2 TH/MM3 (1.8-7.7) (1.8-7.7) (1.8-7.7) Red Blood Count 3.81 MIL/MM3 (4.00-5.30) Platelet Estimate LOW (NORMAL) LOW (NORMAL) Imaging Last Impressions Abdomen/Pelvis CT 12/03/16 0000 Signed Impressions: Service Date/Time: Saturday, December 03, 2016 21:08 - CONCLUSION: 1. Cirrhosis and marked splenomegaly with portosystemic collaterals similar to before. 2. Moderate ascites, new. 3. Small pericardial effusion present and appears to be hemorrhagic. Very small, low-attenuation bilateral pleural effusions are also seen. Bi James MD Chest X-Ray 12/01/16 2120 Signed Impressions: Service Date/Time: Thursday, December 01, 2016 21:44 - CONCLUSION: Compensated cardiomegaly otherwise negative Board Certified Radiologist. This report was verified electronically. PE at Discharge GENERAL: This is a well-nourished, well-developed patient, in no apparent distress. CARDIOVASCULAR: Regular rate and rhythm without murmurs, gallops, or rubs. RESPIRATORY: Clear to auscultation. Breath sounds equal bilaterally. No wheezes , rales, or rhonchi. GASTROINTESTINAL: Abdomen soft, non-tender, nondistended. Normal active bowel sounds MUSCULOSKELETAL: Extremities without clubbing, cyanosis, or edema. NEURO: Alert & Oriented x4 to person, place, time, situation. Moves all ext x4 Pt update on day of discharge Patient seen today in follow-up for hypotension and portal hypertension. Medications have been adjusted to improve her blood pressures. Patient admits she has a follow-up appointment with Dr. Suarez on 13 December discharge plans discussed with patient. Cellular profile is back to baseline. Hospital Course Patient seen and treated for pancytopenia which is chronic due to chronic liver disease but likely further suppressed due to recent antibiotics (Purulent pericarditis, sp 4 weeks of vancomycin treatment with current negative blood cultures). Patient did have evaluation by infectious disease and hematology. No evidence of new infection was noted. Patient continued to be followed until her levels reached her baseline. Patient did well and was discharged home Pt Condition on Discharge: Good Discharge Disposition: Discharge Home Discharge Time: > 30 minutes Discharge Instructions DIET: Follow Instructions for: As Tolerated, No Restrictions Activities you can perform: Regular-No Restrictions Follow up Referrals: PCP Follow-up - 12/13/16 with tita New Medications: Diltiazem CD 24 HR (Cardizem CD 24 HR) 120 Mg Caper 120 MG PO DAILY liver #31 CAP Ferrous Sulfate (Ferosul) 325 Mg Tablet 325 MG PO BID iron #62 TAB Metoprolol Tartrate (Metoprolol Tartrate) 25 Mg Tab 12.5 MG PO Q12HR portal htn #62 TAB Continued Medications: Alprazolam (Xanax) 0.25 Mg Tab 0.25 MG PO Q8H PRN ANXIETY #6 Ref 0 TAB Hydrocodone-Acetaminophen (Lortab) 5-325 Mg Tab 1 TAB PO Q6H PRN PAIN Ref 0 TAB Metoprolol Tartrate (Metoprolol Tartrate) 25 Mg Tab 25 MG PO BID #60 Ref 0 TAB Ondansetron (Zofran) 4 Mg Tab 4 MG PO Q6HR PRN NAUSEA OR VOMITING Ref 0 TAB Discontinued Medications: Diltiazem (Diltiazem) 60 Mg Tab 60 MG PO QID Angina #120 Ref 0 TAB Vancomycin in Dextrose Inj (Vancomycin in Dextrose Inj) 1 Gm/200 Ml Inj 1250 MG IV Q12H Infection Ref 0 Beryl Cuellar MD Dec 07, 2016 11:06
[2016-12-08] MEDS ORDERED: DILTIAZEM-CD 120 MG CAP ER PO SCH (09:00)
== END 2016-12-07 12:22 | disposition home or self-care (01) | DRG 392 ==
LOC: PHED 17:56 → PHEDA 23:38 → PH3B 12-02 01:29
PROVIDERS: ADMIT Hospitalist; ATTEND Hospitalist
DX: K52.9 Noninfective gastroenteritis and colitis, unspecified (principal); D61.818 Other pancytopenia; R18.8 Other ascites; D69.6 Thrombocytopenia, unspecified; R16.1 Splenomegaly, not elsewhere classified; K74.60 Unspecified cirrhosis of liver; B19.20 Unspecified viral hepatitis C without hepatic coma; F41.9 Anxiety disorder, unspecified; K21.9 Gastro-esophageal reflux disease without esophagitis; F31.9 Bipolar disorder, unspecified; G43.909 Migraine, unspecified, not intractable, without status migrainosus; Z72.0 Tobacco use; Z87.442 Personal history of urinary calculi; I10 Essential (primary) hypertension; Z80.0 Family history of malignant neoplasm of digestive organs; E61.1 Iron deficiency
CPT/HCPCS: 71010; 74177; 80048; 80053; 80202; 82607; 82728; 82746; 83540; 83550; 83605; 85007; 85027; 87040; 87493; 87506; 93005; 96361; 96374; 96375; J1170; J1756; J2405; J7030; Q9963; Q9967

== ENCOUNTER 2017-11-01 17:16 | Emergency (ER) | payer MEDICAID ==
[~2017-11-01] VITALS: Ht 162.6 cm; Wt 78.0 kg
[~2017-11-01 17:16] MED LIST changes: +CARD120C4 PO; +FERR325T20 PO; +HYDR-3533 PO; +METO25TA3 PO; -PROP10TA6 PO; -PROT40TA PO; -REGL10TA5 PO; -XIFA200T4 PO; +ZOFR4TAB PO
[2017-11-01 17:26] VITALS: BP 126/78; PULSE 86; RESP 16; TEMP 98.1; O2SAT 99
--- NOTE | 2017-11-01 17:53 | PD ---
HPI Chief Complaint: Abdominal Pain Time Seen by Provider: 17:45 Travel History International Travel<30 days: No Contact w/Intl Traveler<30days: No Traveled to known affect area: No History of Present Illness HPI 51-year-old female came to the emergency room with history of multiple complaints including chronic abdominal pain. She said that she has been diagnosed with cirrhosis and hepatitis C and sees mailing clerk Dr. Torres. She has had blood work done 2 weeks ago and was told everything looked okay. She supposed to be started on some medication for hepatitis C that the mailing clerk are trying to work out. She says she has had multiple CAT scans for the same abdominal pain that she has today which is generalized with no specific aggravating or relieving factors identified. No radiation. Vital signs are stable. She also mentions that she has a swelling which is painful she has noticed for past couple days on her right buttock. This has been since she scratched on that area couple days ago. She has not noticed any drainage in particular. She does have history of MRSA where she required major surgery in the past. No history of fever or chills. No history of nausea vomiting. No history of constipation or diarrhea. Patient is also concerned about UTI since she says she has been having some symptoms of frequency and would like her urine to be tested PFSH Past Medical History Narrative Medical List of her past medical, surgical, social and family history is reviewed from the nursing note. Hx Anticoagulant Therapy: No Anemia: Yes Arthritis: No Asthma: No Autoimmune Disease: No Blood Disorders: Yes (Thrombocytopenia) Anxiety: Yes Depression: Yes Heart Rhythm Problems: No Cancer: No Cardiovascular Problems: Yes High Cholesterol: No Chemotherapy: No Chest Pain: No Congestive Heart Failure: No Cirrhosis: Yes COPD: No Cerebrovascular Accident: No Diabetes: No Diminished Hearing: No Endocrine: No Gastrointestinal Disorders: Yes (Enlarged spleen, GIB) GERD: Yes Glaucoma: No Genitourinary: Yes (Frequent UTI's) Headaches: Yes (OCCASSIONAL H/A) Hepatitis: Yes (C- tx w/ Nathalia) Hiatal Hernia: No Hypertension: Yes (During ) Immune Disorder: No Implanted Vascular Access Dvce: No Kidney Stones: Yes Medical other: Yes (CIRRHOSIS OF LIVER, ENLARGED SPLEEN, INCREASED AMMONIA LEVEL) Musculoskeletal: Yes ("Injury" low back) Neurologic: Yes Psychiatric: Yes (Bipolar) Reproductive: No Respiratory: Yes (SMOKES /2 PPD) Immunizations Current: No Migraines: Yes Myocardial Infarction: No Radiation Therapy: No Renal Failure: No Seizures: No Sickle Cell Disease: No Sleep Apnea: No Thyroid Disease: No Ulcer: No PNEUMOCCOCAL Vaccine (Year): 1 ?: Not LMP: 10/21/17 Menopausal: Yes : 2 Tubal Ligation: Yes Past Surgical History Abdominal Surgery: Yes (CHOLECYSTECTOMY 2010) AICD: No Appendectomy: No Arteriovenous Shunt: No Cardiac Surgery: Yes (pericardial window 11/22/16) Section: Yes (X's 2) Cholecystectomy: Yes Ear Surgery: No Endocrine Surgery: No Eye Surgery: No Genitourinary Surgery: No Gynecologic Surgery: Yes (C SECTION X2, TUBAL LIGATION) Insulin Pump: No Joint Replacement: No Neurologic Surgery: No Oral Surgery: Yes ([place] teeth) Pacemaker: No Thoracic Surgery: No Other Surgery: Yes (Banding for esophageal varices) Social History Alcohol Use: Yes (Occ.) Tobacco Use: Yes (2 PPD) 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, Cannibis) Allergies-Medications (Allergen,Severity, Reaction): Coded Allergies: penicillin G (Unverified Allergy, Severe, FEVER, 11/03/17) *MDRO Multi-Drug Resistant Organism (Verified Adverse Reaction, Unknown, ) MRSA (leg) - 08/20/08 MRSA PCR Screen POSITIVE - 06/17/2016 Comments List of her allergies reviewed from the nursing note Reported Meds & Prescriptions Reported Meds & Active Scripts Active Meloxicam 7.5 Mg Tab 7.5 Mg PO BID 5 Days Take as needed for pain. Avoid other antiinflammatories while taking this medication. Clindamycin (Clindamycin HCl) 300 Mg Cap 300 Mg PO TID 10 Days Ferosul (Ferrous Sulfate) 325 Mg Tablet 325 Mg PO BID Metoprolol Tartrate 25 Mg Tab 12.5 Mg PO Q12HR Cardizem CD 24 HR (Diltiazem CD 24 HR) 120 Mg Caper 120 Mg PO DAILY Xanax (Alprazolam) 0.25 Mg Tab 0.25 Mg PO Q8H PRN Reported Zofran (Ondansetron HCl) 4 Mg Tab 4 Mg PO Q6HR PRN Narrative Medication List of her home medications reviewed from the nursing note Review of Systems Except as stated in HPI: all other systems reviewed are Neg Gastrointestinal: Positive: Abdominal Pain Physical Exam Narrative GENERAL: Awake, alert, mildest SKIN: Focused skin assessment warm/dry. 5 x 3 cm induration and fluctuance on the right buttock lateral aspect. The overlying skin is erythematous and tender to touch. HEAD: Atraumatic. Normocephalic. EYES: Pupils equal and round. No scleral icterus. No injection or drainage. ENT: No nasal bleeding or discharge. Mucous membranes pink and moist. NECK: Trachea midline. No JVD. CARDIOVASCULAR: Regular rate and rhythm. No murmur appreciated. RESPIRATORY: No accessory muscle use. Clear to auscultation. Breath sounds equal bilaterally. GASTROINTESTINAL: Abdomen soft, non-tender, nondistended. Hepatic and splenic margins not palpable. MUSCULOSKELETAL: No obvious deformities. No clubbing. No cyanosis. No edema. NEUROLOGICAL: Awake and alert. No obvious cranial nerve deficits. Motor grossly within normal limits. Normal speech. PSYCHIATRIC: Appropriate mood and affect; insight and judgment normal. Data Data Last Documented VS Vital Signs Date Time Temp Pulse Resp B/P (MAP) Pulse Ox O2 Delivery O2 Flow Rate FiO2 11/01/17 19:40 98 20 123/79 (94) 98 11/01/17 17:26 98.1 Orders Orders Wound Culture And Gram Stain (11/01/17 18:17) Urinalysis - C+S If Indicated (11/01/17 18:17) Lidocai-Epi 1%-1:100,000 Inj (Xylocaine- (11/01/17 18:30) Clindamycin (Cleocin) (11/01/17 19:15) Ed Discharge Order (11/01/17 19:05) Labs Laboratory Tests Test 11/01/17 18:27 Urine Color YELLOW Urine Turbidity CLEAR Urine pH 8.0 Urine Specific [place] 1.020 Urine Protein NEG mg/dL Urine Glucose (UA) NEG mg/dL Urine Ketones TRACE mg/dL Urine Occult Blood NEG Urine Nitrite NEG Urine Bilirubin NEG Urine Urobilinogen 4.0 MG/DL Urine Leukocyte Esterase NEG Urine RBC 0-3 /hpf Urine WBC 0-2 /hpf Urine Squamous Epithelial Cells 6-8 /hpf Urine Bacteria FEW /hpf Microscopic Urinalysis Comment CULT NOT INDICATED MDM Medical Decision Making Medical Screen Exam Complete: Yes Emergency Medical Condition: Yes Medical Record Reviewed: Yes Differential Diagnosis Abscess, chronic abdominal pain Narrative Course 7:14 PM UA came back as negative. I did a bedside ultrasound to look at the induration and there was substantial complex fluid collection noticed. Based on this I decided to do an I&D. Please refer to my procedure notes. Patient tolerated the procedure well. She was given verbal as well as typed instructions. I have given her a dose of clindamycin here. I chose not to give her Bactrim given her liver disease history. Culture was sent. Patient will be discharged home. Procedures Procedure Narrative Emergency department soft-tissue/musculoskeletal ultrasound was performed with patient consent. Linear probe was used in the transverse and sagittal views in the area of interest with evidence of large soft-tissue abscess. Incision and drainage: The right buttock area was cleaned with Betadine swab 3. 5 mL of 1% lidocaine with epi was infiltrated to achieve local anesthesia on the overlying skin. A cruciate incision was made on the maximum fluctuance. Immediately pus was noticed to come out. Swab for culture was collected. Forceps were introduced to break loculations. Deep tracking was noticed. Once of the loculations were broken the abscess cavity was packed with half-inch iodoform strip. Dressing was applied by the nurse. Patient tolerated the procedure well. EKG Prior to Arrival: No Diagnosis Primary Impression: Abscess of buttock, right Additional Impressions: Cirrhosis Qualified Codes: K74.60 - Unspecified cirrhosis of liver Hepatitis C Qualified Codes: B18.2 - Chronic viral hepatitis C Chronic abdominal pain Referrals: Primary Care Physician 2 days Additional Instructions: Please follow-up with your GI specialist regarding your chronic abdominal pain since they are already in the process of working you up. Return to the emergency room in 48 hours to get the packing taken out. Take the medication as per the prescription direction. Take Advil/ibuprofen/Motrin for pain control which will be available [id number]. Do sitz bath 4-5 times a day in order to make the antibiotic work better. Med/Other Pt SpecificInfo: Prescription(s) given Scripts Clindamycin (Clindamycin) 300 Mg Cap 300 MG PO TID for Infection for 10 Days, CAP 0 Refills Prov: Arsenio Jimenez MD 11/01/17 Disposition: 01 DISCHARGE HOME Condition: Stable Arsenio Jimenez MD Nov 01, 2017 17:53
[2017-11-01] MEDS ORDERED: LIDOCAINE 1%/EPINEPHrine 1:100,000 SOLN 50 ML VIAL INFIL ONE (18:30)
[2017-11-01 18:34] LABS: BILIRUBIN, URINE NEG (NEG); BLOOD, URINE NEG (NEG); GLUCOSE,URINE NEG (NEG); KETONE, URINE TRACE mg/dL (NEG); NITRITE,URINE NEG (NEG); URINE COLOR YELLOW (YELLW/STRAW); URINE LEUKOCYTE ESTERASE NEG (NEG)
[2017-11-01 18:51] LABS: BACTERIA, URINE FEW /hpf; RBC, URINE 0-3 /hpf (0-3); WBC, URINE 0-2 /hpf (0-5)
[2017-11-01] MEDS ORDERED: CLIN300C5 PO (19:07)
[2017-11-01] MEDS ORDERED: CLINDAMYCIN 150 MG CAP PO ONE (19:15)
[2017-11-01 19:40] VITALS: BP 123/79
== END 2017-11-01 19:49 | disposition home or self-care (01) ==
LOC: PHED 17:16
DX: L02.31 Cutaneous abscess of buttock (principal); B95.62 Methicillin resistant Staphylococcus aureus infection as the cause of diseases classified elsewhere; K74.60 Unspecified cirrhosis of liver; B18.2 Chronic viral hepatitis C; G89.29 Other chronic pain; R10.9 Unspecified abdominal pain; Z86.14 Personal history of Methicillin resistant Staphylococcus aureus infection; F41.9 Anxiety disorder, unspecified; F32.9 Major depressive disorder, single episode, unspecified; K21.9 Gastro-esophageal reflux disease without esophagitis; F17.200 Nicotine dependence, unspecified, uncomplicated
CPT/HCPCS: 10061; 81001; 86403; 87070; 87186; 87205

== ENCOUNTER 2017-11-03 14:41 | Emergency (ER) | payer MEDICAID ==
[~2017-11-03] VITALS: Ht 162.6 cm; Wt 77.0 kg
[~2017-11-03 14:41] MED LIST changes: +CLIN300C5 PO
[2017-11-03 14:53] VITALS: RESP 16
--- NOTE | 2017-11-03 15:47 | PD ---
HPI Chief Complaint: Wound/Suture/Staple Re-Check Time Seen by Provider: 15:32 Travel History International Travel<30 days: No Contact w/Intl Traveler<30days: No Traveled to known affect area: No History of Present Illness HPI 51-year-old female presents emergency department for wound check of her right buttocks. Says that she had incision and drainage performed a couple of days ago and is here today for unpacking and treatment. Says she has been using her medication as prescribed. Says her pain has been significant and is disappointed because she did not get any pain medication. She says that the pain has decreased somewhat but still has pain. Says that she has been compliant with instructions since discharge. She denies fevers or chills. Denies numbness or tingling of the extremities. She has no other complaints today. PFSH Past Medical History Hx Anticoagulant Therapy: No Anemia: Yes Arthritis: No Asthma: No Autoimmune Disease: No Blood Disorders: Yes (Thrombocytopenia) Anxiety: Yes Depression: Yes Heart Rhythm Problems: No Cancer: No Cardiovascular Problems: Yes High Cholesterol: No Chemotherapy: No Chest Pain: No Congestive Heart Failure: No Cirrhosis: Yes COPD: No Cerebrovascular Accident: No Diabetes: No Diminished Hearing: No Endocrine: No Gastrointestinal Disorders: Yes (Enlarged spleen, GIB) GERD: Yes Glaucoma: No Genitourinary: Yes (Frequent UTI's) Headaches: Yes (OCCASSIONAL H/A) Hepatitis: Yes (C- tx w/ Nathalia) Hiatal Hernia: No Hypertension: Yes (During ) Immune Disorder: No Implanted Vascular Access Dvce: No Kidney Stones: Yes Medical other: Yes (CIRRHOSIS OF LIVER, ENLARGED SPLEEN, INCREASED AMMONIA LEVEL) Musculoskeletal: Yes ("Injury" low back) Neurologic: Yes Psychiatric: Yes (Bipolar) Reproductive: No Respiratory: Yes (SMOKES 1/2 PPD) Immunizations Current: No Migraines: Yes Myocardial Infarction: No Radiation Therapy: No Renal Failure: No Seizures: No Sickle Cell Disease: No Sleep Apnea: No Thyroid Disease: No Ulcer: No PNEUMOCCOCAL Vaccine (Year): 1 ?: Not Menopausal: Yes : 2 Tubal Ligation: Yes Past Surgical History Abdominal Surgery: Yes (CHOLECYSTECTOMY 2010) AICD: No Appendectomy: No Arteriovenous Shunt: No Cardiac Surgery: Yes (pericardial window 11/22/16) Section: Yes (X's 2) Cholecystectomy: Yes Ear Surgery: No Endocrine Surgery: No Eye Surgery: No Genitourinary Surgery: No Gynecologic Surgery: Yes (C SECTION X2, TUBAL LIGATION) Insulin Pump: No Joint Replacement: No Neurologic Surgery: No Oral Surgery: Yes (Mcdonald teeth) Pacemaker: No Thoracic Surgery: No Other Surgery: Yes (Banding for esophageal varices) Social History Alcohol Use: Yes (Occ.) Tobacco Use: Yes (1/2 PPD) 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, Cannibis) Allergies-Medications (Allergen,Severity, Reaction): Coded Allergies: penicillin G (Unverified Allergy, Severe, FEVER, 11/03/17) *MDRO Multi-Drug Resistant Organism (Verified Adverse Reaction, Unknown, ) MRSA (leg) - 08/20/08 MRSA PCR Screen POSITIVE - 06/17/2016 Reported Meds & Prescriptions Reported Meds & Active Scripts Active Meloxicam 7.5 Mg Tab 7.5 Mg PO BID 5 Days Take as needed for pain. Avoid other antiinflammatories while taking this medication. Clindamycin (Clindamycin HCl) 300 Mg Cap 300 Mg PO TID 10 Days Ferosul (Ferrous Sulfate) 325 Mg Tablet 325 Mg PO BID Metoprolol Tartrate 25 Mg Tab 12.5 Mg PO Q12HR Cardizem CD 24 HR (Diltiazem CD 24 HR) 120 Mg Caper 120 Mg PO DAILY Xanax (Alprazolam) 0.25 Mg Tab 0.25 Mg PO Q8H PRN Reported Zofran (Ondansetron HCl) 4 Mg Tab 4 Mg PO Q6HR PRN Review of Systems Except as stated in HPI: all other systems reviewed are Neg Physical Exam Narrative GENERAL: Well-nourished, well-developed patient, in NAD SKIN: Focused skin assessment warm/dry. No rashes or lesions. Left buttock-area of previous incision and drainage with packing in place. No obvious active discharge or drainage. The dressing appears clean but some discharge is present on the gauze. HEAD: Normocephalic. Atraumatic. EYES: No scleral icterus. No injection or drainage. THROAT: Airway is patent. NECK: Supple, trachea midline. No JVD or lymphadenopathy. No meningismus. MUSCULOSKELETAL: No cyanosis, or edema. BACK: Nontender without obvious deformity. No CVA tenderness. Data Data Last Documented VS Vital Signs Date Time Temp Pulse Resp B/P (MAP) Pulse Ox O2 Delivery O2 Flow Rate FiO2 11/03/17 14:53 16 Orders Orders Wound Care (11/03/17 15:43) Ed Discharge Order (11/03/17 15:49) [facility] Medical Decision Making Medical Screen Exam Complete: Yes Emergency Medical Condition: Yes Differential Diagnosis Cellulitis, abscess, erysipelas, wound check Narrative Course 51-year-old female presents emergency department for evaluation of a previous incision and drainage to the right buttocks. The area appears to be in the healing stage and granulation tissue present. No active draining upon removal of the packing. The area was repacked lightly with iodoform gauze. She is advised to continue clindamycin. Patient requested pain medication however, I do not believe this is appropriate because she has cirrhosis and because this is an abscess that is healing. Advised that she could try meloxicam for her pain. Advised to avoid other NSAIDs while using this medication. She should continue warm compresses and may use cool compresses to reduce some of her pain. She should follow-up with her primary care physician or come to the emergency department for wound check in approximately 2 days. Diagnosis Primary Impression: Wound check, abscess Referrals: Primary Care Physician Additional Instructions: Recommend return to the emergency department or your primary care physician in 2 days for wound check. Continue your antibiotics as prescribed. Scripts Meloxicam (Meloxicam) 7.5 Mg Tab 7.5 MG PO BID for Arthritis Pain for 5 Days, #10 TAB 0 Refills Take as needed for pain. Avoid other antiinflammatories while taking this medication. Prov: Arsenio Jimenez MD 11/03/17 Disposition: 01 DISCHARGE HOME Condition: Stable Sudha Hernandez Nov 03, 2017 15:47
[2017-11-03] MEDS ORDERED: MELO7.5T27 PO (15:49)
== END 2017-11-03 16:13 | disposition home or self-care (01) ==
LOC: PHEFT 14:41
DX: Z48.01 Encounter for change or removal of surgical wound dressing (principal); L02.31 Cutaneous abscess of buttock; F41.9 Anxiety disorder, unspecified; F32.9 Major depressive disorder, single episode, unspecified; K21.9 Gastro-esophageal reflux disease without esophagitis; K74.60 Unspecified cirrhosis of liver; D64.9 Anemia, unspecified; F17.200 Nicotine dependence, unspecified, uncomplicated; Z87.442 Personal history of urinary calculi
CPT/HCPCS: 99281

== ENCOUNTER 2017-11-05 19:27 | Emergency (ER) | payer MEDICAID ==
[~2017-11-05] VITALS: Ht 162.6 cm; Wt 77.0 kg
[~2017-11-05 19:27] MED LIST changes: -HYDR-3533 PO; +MELO7.5T27 PO
[2017-11-05 19:41] VITALS: BP 116/57; PULSE 72; RESP 18; TEMP 97.9; O2SAT 97
--- NOTE | 2017-11-05 20:14 | PD ---
HPI Chief Complaint: Wound/Suture/Staple Re-Check Time Seen by Provider: 20:05 Travel History International Travel<30 days: No Contact w/Intl Traveler<30days: No Traveled to known affect area: No History of Present Illness HPI 51-year-old female here for abscess recheck. She reports the packing was accidentally removed with her last dressing change this morning. She reports the area is improving. She has decreased pain. Minimal drainage. No fever chills. She reports compliance with her antibiotics. PFSH Past Medical History Hx Anticoagulant Therapy: No Anemia: Yes Arthritis: No Asthma: No Autoimmune Disease: No Blood Disorders: Yes (Thrombocytopenia) Anxiety: Yes Depression: Yes Heart Rhythm Problems: No Cancer: No Cardiovascular Problems: Yes High Cholesterol: No Chemotherapy: No Chest Pain: No Congestive Heart Failure: No Cirrhosis: Yes COPD: No Cerebrovascular Accident: No Diabetes: No Diminished Hearing: No Endocrine: No Gastrointestinal Disorders: Yes (Enlarged spleen, GIB) GERD: Yes Glaucoma: No Genitourinary: Yes (Frequent UTI's) Headaches: Yes (OCCASSIONAL H/A) Hepatitis: Yes (C- tx w/ Nathalia) Hiatal Hernia: No Hypertension: Yes (During ) Immune Disorder: No Implanted Vascular Access Dvce: No Kidney Stones: Yes Medical other: Yes (CIRRHOSIS OF LIVER, ENLARGED SPLEEN, INCREASED AMMONIA LEVEL) Musculoskeletal: Yes ("Injury" low back) Neurologic: Yes Psychiatric: Yes (Bipolar) Reproductive: No Respiratory: Yes (SMOKES 1/2 PPD) Immunizations Current: No Migraines: Yes Myocardial Infarction: No Radiation Therapy: No Renal Failure: No Seizures: No Sickle Cell Disease: No Sleep Apnea: No Thyroid Disease: No Ulcer: No Tetanus Vaccination: > 5 Years Influenza Vaccination: Yes PNEUMOCCOCAL Vaccine (Year): 1 ?: Not LMP: 10/21/17 Menopausal: Yes : 2 Tubal Ligation: Yes Past Surgical History Abdominal Surgery: Yes (CHOLECYSTECTOMY 2010) AICD: No Appendectomy: No Arteriovenous Shunt: No Cardiac Surgery: Yes (pericardial window 11/22/16) Section: Yes (X's 2) Cholecystectomy: Yes Ear Surgery: No Endocrine Surgery: No Eye Surgery: No Genitourinary Surgery: No Gynecologic Surgery: Yes (C SECTION X2, TUBAL LIGATION) Insulin Pump: No Joint Replacement: No Neurologic Surgery: No Oral Surgery: Yes (Hinckley teeth) Pacemaker: No Thoracic Surgery: No Other Surgery: Yes (Banding for esophageal varices) Social History Alcohol Use: Yes (Occ.) Tobacco Use: Yes (1/2 PPD) 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, Cannibis) Allergies-Medications (Allergen,Severity, Reaction): Coded Allergies: penicillin G (Unverified Allergy, Severe, FEVER, 11/05/17) *MDRO Multi-Drug Resistant Organism (Verified Adverse Reaction, Unknown, ) MRSA (leg) - 08/20/08 MRSA PCR Screen POSITIVE - 06/17/2016 Reported Meds & Prescriptions Reported Meds & Active Scripts Active Meloxicam 7.5 Mg Tab 7.5 Mg PO BID 5 Days Take as needed for pain. Avoid other antiinflammatories while taking this medication. Clindamycin (Clindamycin HCl) 300 Mg Cap 300 Mg PO TID 10 Days Ferosul (Ferrous Sulfate) 325 Mg Tablet 325 Mg PO BID Metoprolol Tartrate 25 Mg Tab 12.5 Mg PO Q12HR Cardizem CD 24 HR (Diltiazem CD 24 HR) 120 Mg Caper 120 Mg PO DAILY Xanax (Alprazolam) 0.25 Mg Tab 0.25 Mg PO Q8H PRN Reported Zofran (Ondansetron HCl) 4 Mg Tab 4 Mg PO Q6HR PRN Review of Systems Except as stated in HPI: all other systems reviewed are Neg General / Constitutional: No: Fever Eyes: No: Visual changes HENT: No: Headaches Cardiovascular: No: Chest Pain or Discomfort Respiratory: No: Shortness of Breath Gastrointestinal: No: Abdominal Pain Genitourinary: No: Dysuria Musculoskeletal: No: Pain Skin: No Rash Physical Exam Narrative GENERAL: Alert and well-appearing 51-year-old female SKIN: Warm and dry. Healing abscess to the right gluteal region. No induration , surrounding cellulitis, drainage from the site. HEAD: Normocephalic. EYES: No injection or drainage. NECK: Supple CARDIOVASCULAR: Regular rate and rhythm RESPIRATORY: Breath sounds equal bilaterally. No accessory muscle use. GASTROINTESTINAL: Abdomen soft, non-tender, nondistended. MUSCULOSKELETAL: No cyanosis, or edema. Data Data Last Documented VS Vital Signs Date Time Temp Pulse Resp B/P (MAP) Pulse Ox O2 Delivery O2 Flow Rate FiO2 11/05/17 19:41 97.9 72 18 116/57 (11) 60 [facility] Medical Decision Making Medical Screen Exam Complete: Yes Emergency Medical Condition: Yes Differential Diagnosis Abscess recheck, cellulitis, wound infection Narrative Course 51-year-old female here for recheck of her abscess after she accidentally removed the packing. The wound appears to be healing well. I do not feel he needs to be repacked. She was instructed to continue with her antibiotics as directed. Continue local wound care. Diagnosis Primary Impression: Abscess re-check Referrals: Primary Care Physician Additional Instructions: Continue antibiotics as directed. Continue local wound care as directed. Follow-up with your doctor. Disposition: DISCHARGE HOME Condition: Stable Betsy Barrios Nov 05, 2017 20:14
== END 2017-11-05 20:17 | disposition home or self-care (01) ==
LOC: PHEFT 19:27
DX: Z48.00 Encounter for change or removal of nonsurgical wound dressing (principal); L02.31 Cutaneous abscess of buttock; D64.9 Anemia, unspecified; D69.6 Thrombocytopenia, unspecified; F41.9 Anxiety disorder, unspecified; F32.9 Major depressive disorder, single episode, unspecified; K74.60 Unspecified cirrhosis of liver; R16.1 Splenomegaly, not elsewhere classified; K21.9 Gastro-esophageal reflux disease without esophagitis; I10 Essential (primary) hypertension; F31.9 Bipolar disorder, unspecified; F17.200 Nicotine dependence, unspecified, uncomplicated; Z79.899 Other long term (current) drug therapy; Z88.0 Allergy status to penicillin; Z87.440 Personal history of urinary (tract) infections; Z86.19 Personal history of other infectious and parasitic diseases; Z87.442 Personal history of urinary calculi
CPT/HCPCS: 99281

== ENCOUNTER 2018-01-10 23:59 | Observation (INO) ==
[2018-01-11] MEDS ORDERED: Octreotide Inj 50 MCG/ML Vial IV.PUSH ONE (00:17)
[2018-01-11] MEDS: Sod Chloride 0.9% Inj 1,000 ML IV.CONT SCH ×3 (00:25→18:41)
--- NOTE | 2018-01-11 00:33 | XR ---
EXAM DATE: 01/11/2018 12:27 AM EDT AGE/SEX: 52 years / Female INDICATIONS: Shortness of breath. CLINICAL DATA: This is the patient's initial encounter. Patient reports that signs and symptoms have been present for 1 day and indicates a pain score of 0/10. MEDICAL/SURGICAL HISTORY: None. None. COMPARISON: [facility], CHEST SINGLE AP, 12/01/2016. . FINDINGS: A single AP view of the chest demonstrates the lungs to be symmetrically aerated without evidence of mass, infiltrate or effusion. The cardiomediastinal contours are unremarkable. Osseous structures a re intact. CONCLUSION: Negative examination. Electronically signed by: Erick Ferrer MD 01/11/2018 12:32 AM EDT
--- NOTE | 2018-01-11 00:57 | ED ---
HPI General Chief complaint: Medical Clearance Stated complaint: Confusion Time Seen by Provider: 01/11/18 00:05 Source: patient Mode of arrival: EMS Limitations: no limitations History of Present Illness HPI narrative: The patient is a 52 year old female who presents to the [facility] emergency department with a history of being found unresponsive by people that she rents a room from. The patient had Narcan nasal spray administered by bystanders and CPR was started. According to ambulance services 2 rounds of CPR was done by bystanders and then the patient awakened. The patient was walking around upon ambulance services arrival. The patient had one episode of hematemesis prior to ambulance services arrival. The patient admits to having hepatitis C and cirrhosis with a history of GI bleeds and varices previously. She has not been taking her usual medications for the last 2 days. The patient denies any opiate use. She freely admits to using cocaine, marijuana, and drinking alcohol. She reports that her GI doctor is Dr. Abdul. She reports that her primary care physician is Dr. Suarez. She reports that recently she had blood work done that showed pancytopenia. She is in the process of being referred to a specialist regarding this. The patient reports that over the last 3 days she has had a generalized abdominal discomfort. She denies having any blood in her stool prior to this. She denies having any hematemesis prior to the initial episode just prior to ambulance services arriving. The patient reports that the abdominal pain that she has been experiencing is a cramping sensation. On review of systems otherwise, the patient denies having any recent fevers, cough, congestion, neck pain, chest pain, shortness of breath, urinary symptoms, one-sided weakness, slurred speech, facial droop, difficulty with word finding ability, or vision changes. Related Data Home Medications Medication Instructions Recorded Confirmed pantoprazole [Protonix] 40 mg PO DAILY 01/11/18 01/11/18 propranolol 10 mg PO BID 01/11/18 01/11/18 Allergies Allergy/AdvReac Type Severity Reaction Status Date / Time penicillin G Allergy Severe FEVER Verified 01/11/18 00:17 *MDRO Multi-Drug Resistant AdvReac Unknown Weakness Uncoded 01/11/18 00:17 Organism Review of Systems ROS: all other systems reviewed are negative (Except for that which was mentioned in the HPI.) [facility] Medical History Medical History Bleeding esophageal varices in alcoholic cirrhosis (Acute) ETOH abuse (Acute) GI bleed (Acute) Hepatitis C (Acute) Surgical History Surgical History Hx of cholecystectomy (Acute) Social History Social History Substance History: Active Abuse Second Hand Smoke Exposure: Yes Smoking Status: Current every day smoker Tobacco Type: Cigarettes How Often Do You Have a Drink Containing Alcohol: 4 or more times a week Recent Travel in [facility] within the Last 8 Weeks: No Recent Out of Country Travel within the Last 8 Weeks: No Substance Abuse Detail Marijuana: Substance Use Status: Active Crack/Cocaine: Substance Use Status: Active Route Used Substance Abuse: Inhalation Immunization History Tetanus Immunization: Unsure Hx Influenza Vaccine This Season: No Exam Const General: cooperative, no acute distress and well developed Nutritional Appearance: well nourished Orientation: alert, awake and oriented x3 HENMT Head: normocephalic and atraumatic Nose: no nasal discharge and no epistaxis Mouth: moist mucous membranes Throat: posterior oropharynx normal and uvula midline Eyes Sclera: normal sclerae Pupils: PERRL Neck Neck: no meningeal signs, trachea midline and no JVD Resp Effort & Inspection: no use of accessory muscles Auscultation: clear to auscultation bilaterally Cardio Rate: regular rate Rhythm: regular rhythm Heart Sounds: no murmurs GI Inspection: non-distended Palpation: soft, no hepatosplenomegaly, no guarding, not rigid and tender in the LLQ and in the RLQ; not in the epigastrum, not in the LUQ, not in the RUQ, not at McBurney's point, Tinajero's sign negative and with no rebound tenderness Auscultation: normal bowel sounds Back/Spine/Pelvis Back: no CVA tenderness Skin General: dry skin (warm) Neuro General: alert, awake and oriented x3 Cranial Nerves: other (No facial asymmetry.) Speech: speech normal Motor: no movement abnormalities noted Extrem General: normal to inspection (No calf tenderness on palpation. 2+ pulses in all 4 extremities.), no clubbing, no cyanosis and edema (Trace pedal edema bilateral lower extremities.) Laterality: bilaterally Psych Affect: normal affect Judgment: limited Course Reevaluation(s) Reevaluation #1: The patient on reevaluation was reportedly feeling anxious and would like something to help go to sleep. The patient has been awake and alert for multiple hours without any recurrence of sedation and no episodes of vomiting. The patient was given Ativan 0.5 mg IV. Consultations Consultation #1: The patient's case including history, pertinent physical examination findings, and laboratory studies were discussed with Dr. Joy. It was agreed that the patient would be admitted to the hospitalist service. Initial Documented Vital Signs Temperature 98.7 F 01/11/18 00:05 Pulse Rate 84 01/11/18 00:05 Respiratory Rate 20 01/11/18 00:05 Blood Pressure 164/76 H 01/11/18 00:05 Pulse Oximetry 100 01/11/18 00:05 Last Documented Vital Signs Temperature 98.6 F 01/11/18 07:15 Pulse Rate 81 01/11/18 07:15 Respiratory Rate 16 01/11/18 07:15 Blood Pressure 135/86 01/11/18 07:15 Pulse Oximetry 100 01/11/18 01:12 Medical Decision Making MDM Narrative Medical decision making narrative: During the course of the patient's emergency department visit, the patient's history, examination, and differential diagnosis were reviewed with the patient. The patient was placed on a compliance monitor with oximetry and frequent blood pressure monitoring. The patient had IV access obtained and blood work sent for analysis. A diagnostic evaluation was started regarding this patient's hematemesis. The patient was placed on a monitor and monitor closely for any changes in mentation or decreased level of consciousness. The patient was maintained on pulse oximetry to evaluate her respiratory status as the Narcan wears off. The patient was initially provided normal saline IV fluids, Protonix as a bolus , octreotide as a bolus and then a drip. The patient's diagnostic studies are remarkable for an initial hemoglobin of 11.1, white count 2, platelets 62 in a patient with a history of pancytopenia, PT 12.7, PTT 28, chemistry is remarkable for an ammonia level that is elevated at 54, troponin I less than 0.02, glucose 112, total bilirubin 1.3, chloride 108 , AST 42. Urinalysis shows signs of urinary tract infection, Rocephin 1 g was administered IV. A chest x-ray showed no acute abnormality. CT scan of the abdomen and pelvis showed cirrhosis, severe splenomegaly, no other acute abnormality. The patient's results were discussed with the patient, including the plan of care. I explained that further testing and/ or monitoring is indicated based on the patient's history, examination, and/ or laboratory findings. Therefore, I recommended admission for additional evaluation. The patient expressed understanding and was agreeable with this plan. The patient was admitted to the hospital in stable condition and sent to a bed under the care of the [facility] service. Medical Screen Exam Complete: Yes Emergency Medical Condition: Yes Differential Diagnosis Differential Diagnosis: Esophageal varices bleed, versus Chelsey-Thompson tear, versus hemorrhagic esophagitis, versus peptic ulcer bleed. Medical Records Medical records reviewed: Yes I reviewed the patient's medical records. POC Test Results POC Urine Results: Negative Lab Data Lab results reviewed: Yes I reviewed the patient's lab results. Result diagrams: 01/11/18 06:24 01/11/18 00:31 Lab Results 01/11/18 01/11/18 01/11/18 Range/Units 00:31 00:31 00:31 WBC 2.0 L (4.0-11.0) th/mm3 RBC 4.22 (4.00-5.30) mil/mm3 Hgb 11.1 L (11.6-15.3) gm/dL Hct 33.6 L (35.0-46.0) % MCV 79.5 L (80.0-100.0) fL MCH 26.2 L (27.0-34.0) pg MCHC 33.0 (32.0-36.0) % RDW 17.6 H (11.6-17.2) % Plt Count 62 L (150-450) th/mm3 MPV 8.5 (7.0-11.0) fL Prelim Diff (Auto) Slide review pending Neut % (Auto) 65.8 (16.0-70.0) % Lymph % (Auto) 16.3 (9.0-44.0) % Cobb % (Auto) 14.0 H (0.0-8.0) % Eos % (Auto) 3.2 (0.0-4.0) % Baso % (Auto) 0.7 (0.0-2.0) % Neut # (Auto) 1.3 L (1.8-7.7) th/mm3 Lymph # (Auto) 0.3 L (1.0-4.8) th/mm3 Cobb # (Auto) 0.3 (0.0-0.9) th/mm3 Eos # (Auto) 0.1 (0.0-0.4) th/mm3 Baso # (Auto) 0.0 (0.0-0.2) th/mm3 WBC Differential . Diff Scan Auto diff confirmed Differential Comment . Platelet Estimate Low L (Normal) Platelet Morphology Normal (Normal) PT 12.7 H (9.8-11.6) sec INR 1.3 Ratio APTT 28.0 (24.3-30.1) sec Sodium 141 (136-145) meq/L Potassium 3.5 (3.5-5.1) meq/L Chloride 108 H (98-107) meq/L Carbon Dioxide 26.3 (21.0-32.0) meq/L Anion Gap 7 (5-15) meq/L BUN 11 (7-18) mg/dL Creatinine 0.93 (0.50-1.00) mg/dL Estimated GFR 63 L (>89) mL/min Random Glucose 112 H (74-106) mg/dL Calcium 8.1 L (8.5-10.1) mg/dL Magnesium 2.0 (1.5-2.5) mg/dL Total Bilirubin 1.3 H (0.2-1.0) mg/dL AST 42 H (15-37) U/L ALT 33 (10-53) U/L Alkaline Phosphatase 81 (45-117) U/L Ammonia (11-32) mcmol/L Troponin I Less than 0.02 L (0.02-0.05) ng/mL Total Protein 7.6 (6.4-8.2) g/dL Albumin 3.3 L (3.4-5.0) g/dL Lipase 97 (73-393) U/L Urine Color (Yellw/Straw) Urine Clarity (Clear) Urine pH (5.0-8.5) Ur Specific Buckley (1.002-1.035) Urine Protein (Neg-Trace) mg/dL Urine Glucose (UA) (Negative) mg/dL Urine Ketones (Negative) mg/dL Urine Occult Blood (Negative) Urine Nitrate (Negative) Urine Bilirubin (Negative) Urine Urobilinogen (Less than 2) mg/dL Ur Leukocyte Esterase (Negative) Urine RBC (0-3) /hpf Urine WBC (0-5) /hpf Urine WBC Clumps (None) Ur Squamous Epith Cells (0-5) /hpf Ur Transition Epith Cell (None) /hpf Ur Renal Epithelial Cell (None) /hpf Urine Bacteria (None) /hpf Hyaline Casts (0-3) /lpf Urine Mucus (Occasional) /lpf Micro UA Comment Urine Culture Comments Urine Opiates Screen (Neg) Ur Barbiturates Screen (Neg) Ur Amphetamines Screen (Neg) U Benzodiazepines Scrn (Neg) Urine Cocaine Screen (Neg) U Cannabinoids Screen (Neg) Serum Alcohol Less than 3 (0-5) mg/dL Blood Type Blood Type Recheck Antibody Screen 01/11/18 01/11/18 01/11/18 Range/Units 00:31 00:45 00:56 WBC (4.0-11.0) th/mm3 RBC (4.00-5.30) mil/mm3 Hgb (11.6-15.3) gm/dL Hct (35.0-46.0) % MCV (80.0-100.0) fL MCH (27.0-34.0) pg MCHC (32.0-36.0) % RDW (11.6-17.2) % Plt Count (150-450) th/mm3 MPV (7.0-11.0) fL Prelim Diff (Auto) Neut % (Auto) (16.0-70.0) % Lymph % (Auto) (9.0-44.0) % Cobb % (Auto) (0.0-8.0) % Eos % (Auto) (0.0-4.0) % Baso % (Auto) (0.0-2.0) % Neut # (Auto) (1.8-7.7) th/mm3 Lymph # (Auto) (1.0-4.8) th/mm3 Cobb # (Auto) (0.0-0.9) th/mm3 Eos # (Auto) (0.0-0.4) th/mm3 Baso # (Auto) (0.0-0.2) th/mm3 WBC Differential Diff Scan Differential Comment Platelet Estimate (Normal) Platelet Morphology (Normal) PT (9.8-11.6) sec INR Ratio APTT (24.3-30.1) sec Sodium (136-145) meq/L Potassium (3.5-5.1) meq/L Chloride (98-107) meq/L Carbon Dioxide (21.0-32.0) meq/L Anion Gap (5-15) meq/L BUN (7-18) mg/dL Creatinine (0.50-1.00) mg/dL Estimated GFR (>89) mL/min Random Glucose (74-106) mg/dL Calcium (8.5-10.1) mg/dL Magnesium (1.5-2.5) mg/dL Total Bilirubin (0.2-1.0) mg/dL AST (15-37) U/L ALT (10-53) U/L Alkaline Phosphatase (45-117) U/L Ammonia 54 H (11-32) mcmol/L Troponin I (0.02-0.05) ng/mL Total Protein (6.4-8.2) g/dL Albumin (3.4-5.0) g/dL Lipase (73-393) U/L Urine Color (Yellw/Straw) Urine Clarity (Clear) Urine pH (5.0-8.5) Ur Specific Buckley (1.002-1.035) Urine Protein (Neg-Trace) mg/dL Urine Glucose (UA) (Negative) mg/dL Urine Ketones (Negative) mg/dL Urine Occult Blood (Negative) Urine Nitrate (Negative) Urine Bilirubin (Negative) Urine Urobilinogen (Less than 2) mg/dL Ur Leukocyte Esterase (Negative) Urine RBC (0-3) /hpf Urine WBC (0-5) /hpf Urine WBC Clumps (None) Ur Squamous Epith Cells (0-5) /hpf Ur Transition Epith Cell (None) /hpf Ur Renal Epithelial Cell (None) /hpf Urine Bacteria (None) /hpf Hyaline Casts (0-3) /lpf Urine Mucus (Occasional) /lpf Micro UA Comment Urine Culture Comments Urine Opiates Screen Neg (Neg) Ur Barbiturates Screen Neg (Neg) Ur Amphetamines Screen Pos H (Neg) U Benzodiazepines Scrn Neg (Neg) Urine Cocaine Screen Pos H (Neg) U Cannabinoids Screen Pos H (Neg) Serum Alcohol (0-5) mg/dL Blood Type A Positive Blood Type Recheck Not needed Antibody Screen Negative 01/11/18 01/11/18 Range/Units 00:56 06:24 WBC (4.0-11.0) th/mm3 RBC (4.00-5.30) mil/mm3 Hgb 10.2 L (11.6-15.3) gm/dL Hct 31.6 L (35.0-46.0) % MCV (80.0-100.0) fL MCH (27.0-34.0) pg MCHC (32.0-36.0) % RDW (11.6-17.2) % Plt Count (150-450) th/mm3 MPV (7.0-11.0) fL Prelim Diff (Auto) Neut % (Auto) (16.0-70.0) % Lymph % (Auto) (9.0-44.0) % Cobb % (Auto) (0.0-8.0) % Eos % (Auto) (0.0-4.0) % Baso % (Auto) (0.0-2.0) % Neut # (Auto) (1.8-7.7) th/mm3 Lymph # (Auto) (1.0-4.8) th/mm3 Cobb # (Auto) (0.0-0.9) th/mm3 Eos # (Auto) (0.0-0.4) th/mm3 Baso # (Auto) (0.0-0.2) th/mm3 WBC Differential Diff Scan Differential Comment Platelet Estimate (Normal) Platelet Morphology (Normal) PT (9.8-11.6) sec INR Ratio APTT (24.3-30.1) sec Sodium (136-145) meq/L Potassium (3.5-5.1) meq/L Chloride (98-107) meq/L Carbon Dioxide (21.0-32.0) meq/L Anion Gap (5-15) meq/L BUN (7-18) mg/dL Creatinine (0.50-1.00) mg/dL Estimated GFR (>89) mL/min Random Glucose (74-106) mg/dL Calcium (8.5-10.1) mg/dL Magnesium (1.5-2.5) mg/dL Total Bilirubin (0.2-1.0) mg/dL AST (15-37) U/L ALT (10-53) U/L Alkaline Phosphatase (45-117) U/L Ammonia (11-32) mcmol/L Troponin I (0.02-0.05) ng/mL Total Protein (6.4-8.2) g/dL Albumin (3.4-5.0) g/dL Lipase (73-393) U/L Urine Color Barbara (Yellw/Straw) Urine Clarity Cloudy H (Clear) Urine pH 6.0 (5.0-8.5) Ur Specific Buckley 1.018 (1.002-1.035) Urine Protein 100 H (Neg-Trace) mg/dL Urine Glucose (UA) Negative (Negative) mg/dL Urine Ketones Negative (Negative) mg/dL Urine Occult Blood Small H (Negative) Urine Nitrate Positive H (Negative) Urine Bilirubin Negative (Negative) Urine Urobilinogen 4 or greater (Less than 2) mg/dL Ur Leukocyte Esterase Small H (Negative) Urine RBC 14 H (0-3) /hpf Urine WBC 65 H (0-5) /hpf Urine WBC Clumps Occasional H (None) Ur Squamous Epith Cells 41 (0-5) /hpf Ur Transition Epith Cell 1 (None) /hpf Ur Renal Epithelial Cell <1 (None) /hpf Urine Bacteria Moderate H (None) /hpf Hyaline Casts 46 (0-3) /lpf Urine Mucus Many H (Occasional) /lpf Micro UA Comment Culture indicated Urine Culture Comments Culture indicated Urine Opiates Screen (Neg) Ur Barbiturates Screen (Neg) Ur Amphetamines Screen (Neg) U Benzodiazepines Scrn (Neg) Urine Cocaine Screen (Neg) U Cannabinoids Screen (Neg) Serum Alcohol (0-5) mg/dL Blood Type Blood Type Recheck Antibody Screen Imaging Data Radiologist's impression: Abdomen/Pelvis CT 01/11/18 00:14 CONCLUSION: 1. Cirrhosis. 2. Severe splenomegaly. 3. No acute abnormality to explain the patient's pain. Chest X-Ray 01/11/18 00:14 CONCLUSION: Negative examination. Discharge Plan Discharge Disposition Patient Disposition: 30 Still Patient Discharge Details Diagnosis: GI bleed, Opiate overdose Physicians Team ED Provider: Sera Rodriguez Primary Care Provider: Rossy Suarez Attending Provider: Selina Willoughby Interventions Interventions: Vital Signs Last Done: 01/11/18 01:12 Status ED Status: Admitted Observation Patient
[2018-01-11] MEDS ORDERED: Pantoprazole Inj 80 MG in Sodium Chlor 0.9% Inj 100 ML IV.CONT SCH (01:00)
[2018-01-11 01:22] LABS: Amphetamine Screen,Urine Pos (Neg); Barbiturate Screen,Urine Neg (Neg); Cannabinoid Screen,Urine Pos (Neg); Cocaine Screen,Urine Pos (Neg)
[2018-01-11 01:25] LABS: Alanine Aminotransferase 33 U/L (10-53); Albumin 3.3 g/dL (3.4-5.0); Anion Gap 7 meq/L (5-15); Aspartate Aminotransferase 42 U/L (15-37); Blood Urea Nitrogen 11 mg/dL (7-18); Calcium 8.1 mg/dL (8.5-10.1); Carbon Dioxide 26.3 meq/L (21.0-32.0); Chloride 108 meq/L (98-107); Glomerular Filtration Rate 63 mL/min (>89); Glucose,Random 112 mg/dL (74-106); Lipase 97 U/L (73-393); Potassium 3.5 meq/L (3.5-5.1); Sodium 141 meq/L (136-145)
[2018-01-11 01:28] LABS: Alkaline Phosphatase 81 U/L (45-117); Baso % (Auto) 0.7 % (0.0-2.0); Eos # (Auto) 0.1 th/mm3 (0.0-0.4); Eos % (Auto) 3.2 % (0.0-4.0); Hematocrit 33.6 % (35.0-46.0); Hemoglobin 11.1 gm/dL (11.6-15.3); Lymph # (Auto) 0.3 th/mm3 (1.0-4.8); Lymph % (Auto) 16.3 % (9.0-44.0); Mean Corpuscular Hemoglobin 26.2 pg (27.0-34.0); Mean Corpuscular Volume 79.5 fL (80.0-100.0); Mean Platelet Volume 8.5 fL (7.0-11.0); Mono # (Auto) 0.3 th/mm3 (0.0-0.9); Neut # (Auto) 1.3 th/mm3 (1.8-7.7); Neut % (Auto) 65.8 % (16.0-70.0); Platelet Count 62 th/mm3 (150-450); Red Blood Count 4.22 mil/mm3 (4.00-5.30); Red Cell Distribution Width 17.6 % (11.6-17.2); Total Protein 7.6 g/dL (6.4-8.2)
[2018-01-11 01:29] LABS: Bacteria,Urine Moderate /hpf; Bilirubin,Urine Negative (Negative); Clarity,Urine Cloudy (Clear); Color,Urine Amber (Yellw/Straw); Glucose,Urine (UA) Negative (Negative); Hyaline Casts,Urine 46 /lpf (0-3); Leukocyte Esterase,Urine Small (Negative); Mucus,Urine Many /lpf (Occasional); Nitrite,Urine Positive (Negative); Renal Epithelial Cells,Urine <1 /hpf; Specific Gravity,Urine 1.018 (1.002-1.035); Squamous Epithelial Cell,Urine 41 /hpf (0-5); Transitional Epi Cells,Urine 1 /hpf; Urobilinogen,Urine 4 or Greater mg/dL (Less than 2)
[2018-01-11 01:31] LABS: Opiate Screen,Urine Neg (Neg)
[2018-01-11 01:55] LABS: Platelet Morphology Normal (Normal)
[2018-01-11] MEDS: Octreotide Inj 500 MCG in Sodium Chlor 0.9% Inj 500 ML IV.CONT SCH ×3 (02:21→22:26)
--- NOTE | 2018-01-11 03:33 | CT ---
EXAM DATE: 01/11/2018 2:59 AM EDT AGE/SEX: 52 years / Female INDICATIONS: Diffuse abdominal pain, vomiting. CLINICAL DATA: This is the patient's initial encounter. Patient reports that signs and symptoms have been present for 1 day and indicates a pain score of 6/10. MEDICAL/SURGICAL HISTORY: Cirrhosis. Gastrointestinal bleed. Hepatitis C. ETOH abuse. Esopha geal varices. Cholecystectomy. ORAL CONTRAST: No oral contrast ingested. RADIATION DOSE: 12.74 CTDI (mGy) COMPARISON: [facility], CT ABDOMEN & PELVIS W CONTRAST, 12/03/2016. . TECHNIQUE: Multiple contiguous axial images were obtained through the abdomen and pelvis following b olus infusion of 100 ml Omnipaque 350 (iohexol) nonionic water-soluble contrast as a single exam do se. No oral contrast ingested. Using automated exposure control and adjustment of the mA and/or kV a ccording to patient size, radiation dose was kept as low as reasonably achievable to obtain optimal d iagnostic quality images. DICOM format image data is available electronically for review and compari son. FINDINGS: Study degraded by breathing motion. Lower Lungs: The visualized lower lungs are clear. Liver: Lobulated contour to the liver. Diffusely heterogeneous. No discrete mass or ductal dilatation . Portal veins patent. Gallbladder surgically absent. GE junction varicosities. Spleen: Massively enlarged spleen measuring 19.4 cm. No splenic lesion. Splenic vein is patent.. Pancreas: Unremarkable without mass or calcification. Kidneys: Normal in size and shape. No evidence of mass or hydronephrosis. Adrenal Glands: Unremarkable. Aorta: The aorta and proximal iliac vessels are grossly unremarkable without aneurysmal dilation. Bowel/Mesentery: The bowel loops are grossly unremarkable. The cecum and sigmoid colon have a normal configuration. Abdominal Wall: Intact. Retroperitoneum: No evidence of adenopathy in the retrocrural, para-aortic, or deep pelvic regions. Bladder: Contours are smooth. Reproductive Organs: No abnormal masses or calcifications seen. Inguinal: The inguinal region is unremarkable without evidence of adenopathy. Bony Structures: Unremarkable. CONCLUSION: 1. Cirrhosis. 2. Severe splenomegaly. 3. No acute abnormality to explain the patient's pain. Electronically signed by: Erick Ferrer MD 01/11/2018 3:32 AM EDT
[2018-01-11 04:04] LABS: INR 1.3 Ratio; Prothrombin Time 12.7 sec (9.8-11.6)
[2018-01-11 06:32] LABS: Hematocrit 31.6 % (35.0-46.0); Hemoglobin 10.2 gm/dL (11.6-15.3)
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
[2018-01-11] MEDS: LORazepam 0.5 MG Tablet PO PRN (13:18)
--- NOTE | 2018-01-11 13:35 | P.CONGI ---
History of Present Illness Consult date: 01/11/18 Consult reason: Abdominal pain, hematemesis Chief complaint: GI Bleed History of Present Illness: This is a slim 52-year-old female who was brought in to the emergency department and found unresponsive from the people that she rents a room from according to the record. Patient does have a history of hepatitis C, GI bleeds and varices. Last EGD was done approximately [address] Abdul in the hospital setting. Patient notes some generalized abdominal pain and soreness which seems to wax and wane for the past 3 days according to the record, pain scale 5 out of 10. Patient's currently being managed on an octreotide drip and hemoglobin initially was 11.1 now 10.2. Other labs show platelet count at 62, PT/INR 1.3, bilirubin 1.3, AST 42, ALT 33, ammonia level [address] of the abdomen pelvis did show cirrhosis and severe a splenomegaly at 19.4 cm. Patient is attempting to answer simple questions but is very fuzzy on her history this could be secondary to her elevated ammonia level. According to the record and patient she does use drugs, marijuana, and alcohol and started initial treatment for hep C in the past but failed out of the program. Currently patient denies any obvious rectal bleeding or melena, no current nausea or vomiting but according to the record patient did have an episode of hematemesis before the ambulance arrived. Currently patient is n.p.o. and is wanting something to eat and drink. Patient is noncompliant with her outpatient treatment regimens and notes that she has been given lactulose outpatient basis but usually does not take the medicine because she does not like the increased amount of bowel movements she deals with at home. She was initially going to start on Xifaxan but because of the cost has never received the medications. Gastroenterology was consulted to assist with her acute symptoms of abdominal pain and hematemesis and cirrhosis. 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 ETOH abuse GI bleed Hepatitis C - Surgical History Surgical History: Surgical History (Last Reviewed 01/11/18 @ 01:02 by Sera Rodriguez MD) Hx of cholecystectomy - Tobacco History Second Hand Smoke Exposure: No Tobacco Use In Past 30 Days: Yes Smoking Status: Former smoker Tobacco Type: Cigarettes - Alcohol History How Often Do You Have a Drink Containing Alcohol: Never - Substance Use History Substance History: Active Abuse - Substance Use Type Marijuana Status: Active Route Used: Inhalation Frequency: daily Reason for Use: Calm Down Crack/Cocaine Status: Active Route Used: Inhalation Frequency: "when its offered to me" Reason for Use: Feels Good - Travel History Recent Travel in the [place] Within the Last 8 Weeks: No Recent Travel Out of the Country Within the Last 8 Weeks: No - Immunization History Tetanus Immunization: Unsure Hx Influenza Vaccine This Season: No <Yumiko Galeas - Last Filed: 01/11/18 13:21> - Medical History Medical History: Medical History (Last Reviewed 01/11/18 @ 01:02 by Sera Rodriguez MD) Bleeding esophageal varices in alcoholic cirrhosis ETOH abuse GI bleed Hepatitis C - Surgical History Surgical History: Surgical History (Last Reviewed 01/11/18 @ 01:02 by Sera Rodriguez MD) Hx of cholecystectomy <Addy Murcia - Last Filed: 01/11/18 14:51> Medications and Allergies Active Medications: Active Medications Pantoprazole Sodium 80 mg/ (Sodium Chloride) 100 mls @ 10 mls/hr IV.CONT CONT MONIKA Last Infusion: 01/11/18 11:38 Dose: Infused Octreotide Acetate 500 mcg/ (Sodium Chloride) 500.5 mls @ 50.05 mls/hr IV.CONT .Q10H MONIKA Last Admin: 01/11/18 13:19 Dose: 50 mcg/hr, 50.05 mls/hr Sodium Chloride (Ns Inj) 1,000 mls @ 125 mls/hr IV.CONT .Q8H MONIKA Last Admin: 01/11/18 13:20 Dose: 125 mls/hr Ceftriaxone Sodium 1,000 mg/ (Sodium Chloride) 100 mls @ 200 mls/hr IV.SIG Q24H MONIKA Last Admin: 01/11/18 13:18 Dose: 200 mls/hr Lactulose (Lactulose Liq) 30 ml PO DAILY PRN PRN Reason: SEVERE CONSITIPATION Lorazepam (Ativan) 0.5 mg PO Q12H PRN PRN Reason: ANXIETY Last Admin: 01/11/18 13:18 Dose: 0.5 mg Ondansetron HCl (Zofran Inj) 4 mg IV.PUSH Q6H PRN PRN Reason: NAUSEA OR VOMITING Sodium Chloride (Ns Flush) 2 ml IV.FLUSH PRN PRN PRN Reason: FLUSH AFTER USING IV ACCESS <Yumiko Galeas - Last Filed: 01/11/18 13:21> Active Medications: Active Medications Pantoprazole Sodium 80 mg/ (Sodium Chloride) 100 mls @ 10 mls/hr IV.CONT CONT [facility] Last Infusion: 01/11/18 11:38 Dose: Infused Octreotide Acetate 500 mcg/ (Sodium Chloride) 500.5 mls @ 50.05 mls/hr IV.CONT .Q10H [facility] Last Admin: 01/11/18 13:19 Dose: 50 mcg/hr, 50.05 mls/hr Sodium Chloride (Ns Inj) 1,000 mls @ 125 mls/hr IV.CONT .Q8H [facility] Last Admin: 01/11/18 13:20 Dose: 125 mls/hr Ceftriaxone Sodium 1,000 mg/ (Sodium Chloride) 100 mls @ 200 mls/hr IV.SIG Q24H [facility] Last Admin: 01/11/18 13:18 Dose: 200 mls/hr Lactulose (Lactulose Liq) 30 ml PO DAILY PRN PRN Reason: SEVERE CONSITIPATION Lorazepam (Ativan) 0.5 mg PO Q12H PRN PRN Reason: ANXIETY Last Admin: 01/11/18 13:18 Dose: 0.5 mg Ondansetron HCl (Zofran Inj) 4 mg IV.PUSH Q6H PRN PRN Reason: NAUSEA OR VOMITING Sodium Chloride (Ns Flush) 2 ml IV.FLUSH PRN PRN PRN Reason: FLUSH AFTER USING IV ACCESS <Addy Murcia - Last Filed: 01/11/18 14:51> Allergies Allergy/AdvReac Type Severity Reaction Status Date / Time penicillin G Allergy Severe FEVER Verified 01/11/18 00:17 *MDRO Multi-Drug Resistant AdvReac Unknown Weakness Uncoded 01/11/18 00:17 Organism Home Medications Medication Instructions Recorded Confirmed Type dicyclomine 10 mg PO TID 01/11/18 01/11/18 History furosemide [Lasix] 40 mg PO DAILY 01/11/18 01/11/18 History lorazepam 0.5 mg PO BID PRN 01/11/18 01/11/18 History pantoprazole [Protonix] 40 mg PO DAILY 01/11/18 01/11/18 History propranolol 10 mg PO BID 01/11/18 01/11/18 History spironolactone 100 mg PO DAILY 01/11/18 01/11/18 History Exam Vital signs: Vital Signs 01/11/18 00:05 01/11/18 00:20 01/11/18 01:12 Temperature 98.7 F Pulse Rate 84 94 H Respiratory Rate 20 20 Blood Pressure 164/76 H 137/82 Pulse Oximetry 100 100 100 01/11/18 07:15 01/11/18 12:04 Temperature 98.6 F 97.8 F Pulse Rate 81 64 Respiratory Rate 16 18 Blood Pressure 135/86 118/56 L Pulse Oximetry 97 Intake & Output 01/10/18 01/11/18 01/11/18 18:59 06:59 18:59 Intake Total 1100 / 1100 600.5 / 600.5 Balance 1100 / 1100 600.5 / 600.5 Weight 78.018 kg Intake: IV 1100 / 1100 600.5 / 600.5 SandoSTATIN Inj 500 MCG In NS 500.5 / 500.5 Inj 500 ML @ 50 MCG/HR 50.05 mls/hr IV.CONT .Q10H [facility]IK[facility] Rx#: [id number] Protonix Inj 80 MG In NS Inj 100 / 100 100 ML @ 10 mls/hr IV.CONT CONT MONIKA Rx#:[id number] NS Inj 1,000 ML @ 125 mls/hr IV 1000 / 1000 .CONT .Q8H [facility] Rx#:[id number] Rocephin Inj 1,000 MG In NS Inj 100 / 100 100 ML @ 200 mls/hr IV.SIG ONCE ONE Rx#:[id number] - Constitutional moderate distress (Mild increased anxiety), thin - Routine HEENT Exam Head: Present: normocephalic, atraumatic ENT: Present: mucous membranes dry - Routine Neck Exam Present: supple - Routine Respiratory Exam Present: accessory muscle use (No obvious shortness of breath rhonchi or wheezing) - Routine Cardiovascular Exam Present: S1, S2 - Routine Abdominal Exam Present: soft (Round, moderate distention, soft bowel sounds, generalized discomfort pain level 5 out of 10 in complete abdomen with some mild cramping.) <Yumiko Galeas - Last Filed: 01/11/18 13:21> Vital signs: Vital Signs 01/11/18 00:05 01/11/18 00:20 01/11/18 01:12 Temperature 98.7 F Pulse Rate 84 94 H Respiratory Rate 20 20 Blood Pressure 164/76 H 137/82 Pulse Oximetry 100 100 100 01/11/18 07:15 01/11/18 12:04 Temperature 98.6 F 97.8 F Pulse Rate 81 64 Respiratory Rate 16 18 Blood Pressure 135/86 118/56 L Pulse Oximetry 97 Intake & Output 01/10/18 01/11/18 01/11/18 18:59 06:59 18:59 Intake Total 1100 / 1100 600.5 / 600.5 Balance 1100 / 1100 600.5 / 600.5 Weight 78.018 kg Intake: IV 1100 / 1100 600.5 / 600.5 SandoSTATIN Inj 500 MCG In NS 500.5 / 500.5 Inj 500 ML @ 50 MCG/HR 50.05 mls/hr IV.CONT .Q10H [facility]IK[facility] Rx#: [id number] Protonix Inj 80 MG In NS Inj 100 / 100 100 ML @ 10 mls/hr IV.CONT CONT MONIKA Rx#:[id number] NS Inj 1,000 ML @ 125 mls/hr IV 1000 / 1000 .CONT .Q8H [facility] Rx#:[id number] Rocephin Inj 1,000 MG In NS Inj 100 / 100 100 ML @ 200 mls/hr IV.SIG ONCE ONE Rx#:[id number] <Addy Murcia - Last Filed: 01/11/18 14:51> Results - Labs CBC & Chem 7: 01/11/18 06:24 01/11/18 00:31 Labs: Laboratory Results - last 24 hr 01/11/18 01/11/18 01/11/18 00:31 00:31 00:31 WBC 2.0 L RBC 4.22 Hgb 11.1 L Hct 33.6 L MCV 79.5 L MCH 26.2 L MCHC 33.0 RDW 17.6 H Plt Count 62 L MPV 8.5 Prelim Diff (Auto) Slide review pending Neut % (Auto) 65.8 Lymph % (Auto) 16.3 [place] % (Auto) 14.0 H Eos % (Auto) 3.2 Baso % (Auto) 0.7 Neut # (Auto) 1.3 L Lymph # (Auto) 0.3 L [place] # (Auto) 0.3 Eos # (Auto) 0.1 Baso # (Auto) 0.0 WBC Differential . Diff Scan Auto diff confirmed Differential Comment . Platelet Estimate Low L Platelet Morphology Normal PT 12.7 H INR 1.3 APTT 28.0 Sodium 141 Potassium 3.5 Chloride 108 H Carbon Dioxide 26.3 Anion Gap 7 BUN 11 Creatinine 0.93 Estimated GFR 63 L Random Glucose 112 H Calcium 8.1 L Magnesium 2.0 Total Bilirubin 1.3 H AST 42 H ALT 33 Alkaline Phosphatase 81 Ammonia Troponin I Less than 0.02 L Total Protein 7.6 Albumin 3.3 L Lipase 97 Urine Color Urine Clarity Urine pH Ur Specific [place] Urine Protein Urine Glucose (UA) Urine Ketones Urine Occult Blood Urine Nitrate Urine Bilirubin Urine Urobilinogen Ur Leukocyte Esterase Urine RBC Urine WBC Urine WBC Clumps Ur Squamous Epith Cells Ur Transition Epith Cell Ur Renal Epithelial Cell Urine Bacteria Hyaline Casts Urine Mucus Micro UA Comment Urine Culture Comments Urine Opiates Screen Ur Barbiturates Screen Ur Amphetamines Screen U Benzodiazepines Scrn Urine Cocaine Screen U Cannabinoids Screen Serum Alcohol Less than 3 Blood Type Blood Type Recheck Antibody Screen 01/11/18 01/11/18 01/11/18 00:31 00:45 00:56 WBC RBC Hgb Hct MCV MCH MCHC RDW Plt Count MPV Prelim Diff (Auto) Neut % (Auto) Lymph % (Auto) [place] % (Auto) Eos % (Auto) Baso % (Auto) Neut # (Auto) Lymph # (Auto) [place] # (Auto) Eos # (Auto) Baso # (Auto) WBC Differential Diff Scan Differential Comment Platelet Estimate Platelet Morphology PT INR APTT Sodium Potassium Chloride Carbon Dioxide Anion Gap BUN Creatinine Estimated GFR Random Glucose Calcium Magnesium Total Bilirubin AST ALT Alkaline Phosphatase Ammonia 54 H Troponin I Total Protein Albumin Lipase Urine Color Urine Clarity Urine pH Ur Specific [place] Urine Protein Urine Glucose (UA) Urine Ketones Urine Occult Blood Urine Nitrate Urine Bilirubin Urine Urobilinogen Ur Leukocyte Esterase Urine RBC Urine WBC Urine WBC Clumps Ur Squamous Epith Cells Ur Transition Epith Cell Ur Renal Epithelial Cell Urine Bacteria Hyaline Casts Urine Mucus Micro UA Comment Urine Culture Comments Urine Opiates Screen Neg Ur Barbiturates Screen Neg Ur Amphetamines Screen Pos H U Benzodiazepines Scrn Neg Urine Cocaine Screen Pos H U Cannabinoids Screen Pos H Serum Alcohol Blood Type A Positive Blood Type Recheck Not needed Antibody Screen Negative 01/11/18 01/11/18 00:56 06:24 WBC RBC Hgb 10.2 L Hct 31.6 L MCV MCH MCHC RDW Plt Count MPV Prelim Diff (Auto) Neut % (Auto) Lymph % (Auto) [place] % (Auto) Eos % (Auto) Baso % (Auto) Neut # (Auto) Lymph # (Auto) [place] # (Auto) Eos # (Auto) Baso # (Auto) WBC Differential Diff Scan Differential Comment Platelet Estimate Platelet Morphology PT INR APTT Sodium Potassium Chloride Carbon Dioxide Anion Gap BUN Creatinine Estimated GFR Random Glucose Calcium Magnesium Total Bilirubin AST ALT Alkaline Phosphatase Ammonia Troponin I Total Protein Albumin Lipase Urine Color [place] Urine Clarity Cloudy H Urine pH 6.0 Ur Specific [place] 1.018 Urine Protein 100 H Urine Glucose (UA) Negative Urine Ketones Negative Urine Occult Blood Small H Urine Nitrate Positive H Urine Bilirubin Negative Urine Urobilinogen 4 or greater Ur Leukocyte Esterase Small H Urine RBC 14 H Urine WBC 65 H Urine WBC Clumps Occasional H Ur Squamous Epith Cells 41 Ur Transition Epith Cell 1 Ur Renal Epithelial Cell <1 Urine Bacteria Moderate H Hyaline Casts 46 Urine Mucus Many H Micro UA Comment Culture indicated Urine Culture Comments Culture indicated Urine Opiates Screen Ur Barbiturates Screen Ur Amphetamines Screen U Benzodiazepines Scrn Urine Cocaine Screen U Cannabinoids Screen Serum Alcohol Blood Type Blood Type Recheck Antibody Screen - Imaging Impressions Abdomen/Pelvis CT 01/11/18 00:14 CONCLUSION: 1. Cirrhosis. 2. Severe splenomegaly. 3. No acute abnormality to explain the patient's pain. Chest X-Ray 01/11/18 00:14 CONCLUSION: Negative examination. <Yumiko Galeas - Last Filed: 01/11/18 13:21> - Labs CBC & Chem 7: 01/11/18 13:16 01/11/18 00:31 Labs: Laboratory Results - last 24 hr 01/11/18 01/11/18 01/11/18 00:31 00:31 00:31 WBC 2.0 L RBC 4.22 Hgb 11.1 L Hct 33.6 L MCV 79.5 L MCH 26.2 L MCHC 33.0 RDW 17.6 H Plt Count 62 L MPV 8.5 Prelim Diff (Auto) Slide review pending Neut % (Auto) 65.8 Lymph % (Auto) 16.3 [place] % (Auto) 14.0 H Eos % (Auto) 3.2 Baso % (Auto) 0.7 Neut # (Auto) 1.3 L Lymph # (Auto) 0.3 L [place] # (Auto) 0.3 Eos # (Auto) 0.1 Baso # (Auto) 0.0 WBC Differential . Diff Scan Auto diff confirmed Differential Comment . Platelet Estimate Low L Platelet Morphology Normal PT 12.7 H INR 1.3 APTT 28.0 Sodium 141 Potassium 3.5 Chloride 108 H Carbon Dioxide 26.3 Anion Gap 7 BUN 11 Creatinine 0.93 Estimated GFR 63 L Random Glucose 112 H Calcium 8.1 L Magnesium 2.0 Total Bilirubin 1.3 H AST 42 H ALT 33 Alkaline Phosphatase 81 Ammonia Troponin I Less than 0.02 L Total Protein 7.6 Albumin 3.3 L Lipase 97 Urine Color Urine Clarity Urine pH Ur Specific [place] Urine Protein Urine Glucose (UA) Urine Ketones Urine Occult Blood Urine Nitrate Urine Bilirubin Urine Urobilinogen Ur Leukocyte Esterase Urine RBC Urine WBC Urine WBC Clumps Ur Squamous Epith Cells Ur Transition Epith Cell Ur Renal Epithelial Cell Urine Bacteria Hyaline Casts Urine Mucus Micro UA Comment Urine Culture Comments Urine Opiates Screen Ur Barbiturates Screen Ur Amphetamines Screen U Benzodiazepines Scrn Urine Cocaine Screen U Cannabinoids Screen Serum Alcohol Less than 3 Blood Type Blood Type Recheck Antibody Screen 01/11/18 01/11/18 01/11/18 00:31 00:45 00:56 WBC RBC Hgb Hct MCV MCH MCHC RDW Plt Count MPV Prelim Diff (Auto) Neut % (Auto) Lymph % (Auto) [place] % (Auto) Eos % (Auto) Baso % (Auto) Neut # (Auto) Lymph # (Auto) [place] # (Auto) Eos # (Auto) Baso # (Auto) WBC Differential Diff Scan Differential Comment Platelet Estimate Platelet Morphology PT INR APTT Sodium Potassium Chloride Carbon Dioxide Anion Gap BUN Creatinine Estimated GFR Random Glucose Calcium Magnesium Total Bilirubin AST ALT Alkaline Phosphatase Ammonia 54 H Troponin I Total Protein Albumin Lipase Urine Color Urine Clarity Urine pH Ur Specific [place] Urine Protein Urine Glucose (UA) Urine Ketones Urine Occult Blood Urine Nitrate Urine Bilirubin Urine Urobilinogen Ur Leukocyte Esterase Urine RBC Urine WBC Urine WBC Clumps Ur Squamous Epith Cells Ur Transition Epith Cell Ur Renal Epithelial Cell Urine Bacteria Hyaline Casts Urine Mucus Micro UA Comment Urine Culture Comments Urine Opiates Screen Neg Ur Barbiturates Screen Neg Ur Amphetamines Screen Pos H U Benzodiazepines Scrn Neg Urine Cocaine Screen Pos H U Cannabinoids Screen Pos H Serum Alcohol Blood Type A Positive Blood Type Recheck Not needed Antibody Screen Negative 01/11/18 01/11/18 01/11/18 00:56 06:24 13:16 WBC RBC Hgb 10.2 L 10.2 L Hct 31.6 L 31.1 L MCV MCH MCHC RDW Plt Count MPV Prelim Diff (Auto) Neut % (Auto) Lymph % (Auto) [place] % (Auto) Eos % (Auto) Baso % (Auto) Neut # (Auto) Lymph # (Auto) [place] # (Auto) Eos # (Auto) Baso # (Auto) WBC Differential Diff Scan Differential Comment Platelet Estimate Platelet Morphology PT INR APTT Sodium Potassium Chloride Carbon Dioxide Anion Gap BUN Creatinine Estimated GFR Random Glucose Calcium Magnesium Total Bilirubin AST ALT Alkaline Phosphatase Ammonia Troponin I Total Protein Albumin Lipase Urine Color [place] Urine Clarity Cloudy H Urine pH 6.0 Ur Specific [place] 1.018 Urine Protein 100 H Urine Glucose (UA) Negative Urine Ketones Negative Urine Occult Blood Small H Urine Nitrate Positive H Urine Bilirubin Negative Urine Urobilinogen 4 or greater Ur Leukocyte Esterase Small H Urine RBC 14 H Urine WBC 65 H Urine WBC Clumps Occasional H Ur Squamous Epith Cells 41 Ur Transition Epith Cell 1 Ur Renal Epithelial Cell <1 Urine Bacteria Moderate H Hyaline Casts 46 Urine Mucus Many H Micro UA Comment Culture indicated Urine Culture Comments Culture indicated Urine Opiates Screen Ur Barbiturates Screen Ur Amphetamines Screen U Benzodiazepines Scrn Urine Cocaine Screen U Cannabinoids Screen Serum Alcohol Blood Type Blood Type Recheck Antibody Screen - Imaging Impressions Abdomen/Pelvis CT 01/11/18 00:14 CONCLUSION: 1. Cirrhosis. 2. Severe splenomegaly. 3. No acute abnormality to explain the patient's pain. Chest X-Ray 01/11/18 00:14 CONCLUSION: Negative examination. <Addy Murcia E - Last Filed: 01/11/18 14:51> Assessment and Plan (1) Hepatitis C Status: Acute Code(s): B19.20 - Unspecified viral hepatitis C without hepatic coma (2) Liver cirrhosis Status: Acute Code(s): K74.60 - Unspecified cirrhosis of liver (3) GI bleed Status: Acute Code(s): K92.2 - Gastrointestinal hemorrhage, unspecified (4) Hematemesis Status: Acute Code(s): K92.0 - Hematemesis - Plan Hematemesis at least one time possibly 2 before brought to the emergency room Unresponsive found at her home by other people who live in the home. Patient had been taken Ativan and does not remember parts of the day. History of hepatitis C and liver cirrhosis, noncompliant with her medications especially lactulose and never has started on any Xifaxan even though that was the recommendation. Anemia hemoglobin currently 10.2 which is dropped almost a gram within 12 hours GI bleed probable upper, history of varices last EGD done approximately [address] Abdul in the hospital setting Current labs show platelet count 62, PT/INR 1.3, bilirubin 1.3, AST 42, ALT 33, ammonia level 54, albumin 3.3. CT scan did show severe splenomegaly but no other acute abnormality to explain her pain Protonix drip was initially ordered but does not appear to be infusing at this time Plan N.p.o. Consent for EGD with possible banding, scheduled with GI Octreotide drip Monitor labs with special attention to hemoglobin Further recommendations at this time. Patient was seen per myself and Dr. Murcia, note was written on his behalf <Yumiko Galeas - Last Filed: 01/11/18 13:21> (1) Hepatitis C Status: Acute Code(s): B19.20 - Unspecified viral hepatitis C without hepatic coma (2) Liver cirrhosis Status: Acute Code(s): K74.60 - Unspecified cirrhosis of liver (3) GI bleed Status: Acute Code(s): K92.2 - Gastrointestinal hemorrhage, unspecified (4) Hematemesis Status: Acute Code(s): K92.0 - Hematemesis - Attending Attestation Patient seen and examined Agree with above Continue with current supportive care Monitor labs Apparently patient with active drug abuse Patient was to come down for an EGD today but apparently she ate crackers therefore we will delay until tomorrow no evidence of active bleeding at this point <Addy Murcia E - Last Filed: 01/11/18 14:51> <Yumiko Galeas M - Last Filed: 01/11/18 13:21> (3) GI bleed Qualifiers: GI bleed type/associated pathology: unspecified gastrointestinal hemorrhage type Qualified Code(s): K92.2 - Gastrointestinal hemorrhage, unspecified <Addy Murcia E - Last Filed: 01/11/18 14:51> (3) GI bleed Qualifiers: GI bleed type/associated pathology: unspecified gastrointestinal hemorrhage type Qualified Code(s): K92.2 - Gastrointestinal hemorrhage, unspecified
[2018-01-11 13:55] LABS: Hematocrit 31.1 % (35.0-46.0); Hemoglobin 10.2 gm/dL (11.6-15.3)
[2018-01-11 20:02] LABS: Hematocrit 30.2 % (35.0-46.0); Hemoglobin 9.9 gm/dL (11.6-15.3)
[2018-01-11] MEDS: Propranolol 10 MG Tablet PO SCH (22:26)
[2018-01-11] MEDS: Dicyclomine 10 MG Capsule PO SCH (22:26)
[2018-01-12 01:40] LABS: Hematocrit 31.6 % (35.0-46.0); Hemoglobin 10.2 gm/dL (11.6-15.3)
[2018-01-12] MEDS: Sod Chloride 0.9% Inj 1,000 ML IV.CONT SCH ×2 (04:25→09:20)
[2018-01-12] MEDS: Octreotide Inj 500 MCG in Sodium Chlor 0.9% Inj 500 ML IV.CONT SCH (09:00)
--- NOTE | 2018-01-12 09:45 | P.PN ---
Subjective Interval history: Follow-up with encephalopathy, hematemesis. Patient reports feeling much better today. She is awake, alert, oriented 4. She denies any further episodes of nausea/vomiting/hematemesis. She denies any abdominal pain today. She had a formed nonbloody bowel movement overnight. Denies any fevers or chills. She is going for endoscopy today. She would like to go home afterwards. Physical Exam Vital signs: Vital Signs 01/11/18 12:04 01/11/18 16:00 01/11/18 20:00 Temperature 97.8 F 97.8 F 98.1 F Pulse Rate 64 62 73 Respiratory Rate 18 16 19 Blood Pressure 118/56 L 115/64 106/65 Pulse Oximetry 97 97 97 01/11/18 23:38 01/12/18 08:00 Temperature 97.8 F 97.4 F L Pulse Rate 70 69 Respiratory Rate 19 14 Blood Pressure 109/67 101/58 L Pulse Oximetry 100 98 Intake & Output 01/11/18 01/12/18 01/12/18 18:59 06:59 18:59 Intake Total 1700.5 / 1700.5 2101.0 / 2101.0 Balance 1700.5 / 1700.5 2101.0 / 2101.0 Intake: IV 1700.5 / 1700.5 2101.0 / 2101.0 SandoSTATIN Inj 500 MCG In NS 500.5 / 500.5 1001.0 / 1001.0 Inj 500 ML @ 50 MCG/HR 50.05 mls/hr IV.CONT .Q10H MONIKA Rx#: [id number] Protonix Inj 80 MG In NS Inj 100 / 100 100 / 100 100 ML @ 10 mls/hr IV.CONT CONT MONIKA Rx#:[id number] NS Inj 1,000 ML @ 125 mls/hr IV 1000 / 1000 1000 / 1000 .CONT .Q8H MONIKA Rx#:[id number] Rocephin Inj 1,000 MG In NS Inj 100 / 100 100 ML @ 200 mls/hr IV.SIG Q24H MONIKA Rx#:[id number] Narrative: GENERAL: Well-nourished, well-developed middle-aged female patient in [facility]. SKIN: Warm and dry. No rash. HEENT: Normocephalic. Atraumatic. Pupils equal and round. Mucous membranes pink and moist. CARDIOVASCULAR: Regular rate and rhythm. No murmur appreciated. RESPIRATORY: No accessory muscle use. Clear to auscultation. Breath sounds equal bilaterally. GASTROINTESTINAL: Abdomen soft, non-tender, nondistended. Normoactive bowel sounds x4. MUSCULOSKELETAL: No obvious deformities. Extremities without clubbing, cyanosis , or edema. NEUROLOGICAL: Awake and alert. No obvious cranial nerve deficits. Motor grossly within normal limits. Moving all extremities spontaneously. Normal speech. PSYCHIATRIC: Appropriate mood and affect; insight and judgment normal. Results - Labs CBC & Chem 7: 01/12/18 01:26 01/11/18 00:31 Laboratory Results - last 24 hr 01/11/18 01/11/18 01/11/18 00:56 13:16 19:38 Hgb 10.2 L 9.9 L Hct 31.1 L 30.2 L Urine Color Barbara Urine Clarity Cloudy H Urine pH 6.0 Ur Specific Nucla 1.018 Urine Protein 100 H Urine Glucose (UA) Negative Urine Ketones Negative Urine Occult Blood Small H Urine Nitrate Positive H Urine Bilirubin Negative Urine Urobilinogen 4 or greater Ur Leukocyte Esterase Small H Urine RBC 14 H Urine WBC 65 H Urine WBC Clumps Occasional H Ur Squamous Epith Cells 41 Ur Transition Epith Cell 1 Ur Renal Epithelial Cell <1 Urine Bacteria Moderate H Hyaline Casts 46 Urine Mucus Many H Micro UA Comment Culture indicated Ur Microscopic Review Microscopic reviewed Urine Culture Comments Culture indicated 01/12/18 01:26 Hgb 10.2 L Hct 31.6 L Urine Color Urine Clarity Urine pH Ur Specific Nucla Urine Protein Urine Glucose (UA) Urine Ketones Urine Occult Blood Urine Nitrate Urine Bilirubin Urine Urobilinogen Ur Leukocyte Esterase Urine RBC Urine WBC Urine WBC Clumps Ur Squamous Epith Cells Ur Transition Epith Cell Ur Renal Epithelial Cell Urine Bacteria Hyaline Casts Urine Mucus Micro UA Comment Ur Microscopic Review Urine Culture Comments Microbiology 01/11/18 00:56 Clean Catch Urine Urine Culture - Final Escherichia coli - Imaging Abdomen/Pelvis CT 01/11/18 00:14 CONCLUSION: 1. Cirrhosis. 2. Severe splenomegaly. 3. No acute abnormality to explain the patient's pain. Chest X-Ray 01/11/18 00:14 CONCLUSION: Negative examination. - Procedures 01/12/18 EGD showed: -Portal gastropathy mild to moderate -Residual food suggestive of gastroparesis Assessment and Plan - Plan 52-year-old female with history of hepatitis C, cirrhosis, prior GI bleeds, polysubstance abuse, anxiety, tobacco use, presents after being found unresponsive. Hematemesis: acute. With hx of varices and prior GI bleeds. Hgb currently 10.2. -Monitor serial H&H -Continue octreotide drip and protonix drip -Consult GI, appreciate assistance -EGD showed portal gastropathy mild to moderate; and residual food suggestive of gastroparesis -GI cleared for discharge, recommended low salt diet, can follow up as outpatient with GI Syncope/Unresponsive Episode: likely multifactorial, polysubstance abuse in combination with hepatic encephalopathy, UTI, and dehydration -Hold patient's diuretic for now -Give IVF hydration -Treat infection -Give lactulose for mild hepatic encephalopathy with hyperammonemia -Patient is now awake, alert, oriented x4; resolved. Hepatitis C, Liver Cirrhosis, Mild Hepatic Encephalopathy: acute on chronic. Patient continues to abuse alcohol and drugs. -Give lactulose 30ml po bid -Holding patient's lasix and spironolactone for now as patient is dehydrated -GI on board, appreciate assistance Anxiety: acute on chronic -continue patient's ativan 0,5mg po bid (verified on E-forcse) Tobacco/Polysubstance Abuse: acute on chronic -UDS positive for cocaine, amphetamines, cannabinoids -counseled on cessation -nicotine patch UTI: UA with +leuks/nitrates -given IV Rocephin -Urine culture with E.Coli, will discharge on po Cipro DVT Prophylaxis: teds/SCDs; avoid chemical prophylaxis with GI bleed Discharge Planning: Discharge patient to home Condition on discharge: Stable Low Salt Diet as tolerated Ad Rhona activity Rx written: cipro 500mg po bid x5days Follow-up with primary care physician and gastroenterology
[2018-01-12] MEDS ORDERED: Chlorhexidine Gluconate 2% 1 Pack (2 Cloths) TOPICAL SCH (10:00)
[2018-01-12] MEDS ORDERED: Sodium Chlor 0.9% Inj 500 ML IV.SIG SCH (10:00)
[2018-01-12] MEDS ORDERED: Metoprolol Tartrate 25 MG Tablet PO SCH (10:00)
--- NOTE | 2018-01-12 11:25 | P.PCN ---
Date of procedure: 01/12/18 Pre-op diagnosis: Hematemesis, anemia Procedure: PROCEDURE PERFORMED EGD INDICATION FOR PROCEDURE Hematemesis, anemia PROCEDURE: The procedure, risks and benefits were discussed with Patient/POA and informed consent was obtained. Anesthesia sedated Patient with Diprivan. Patient was placed in the left lateral decubitus position. EGD: The Pentax videoscope was introduced through the oropharynx and advanced to the second portion of the duodenum under direct visualization. Retroflexion was performed in the stomach. FINDINGS: The esophagus this appeared to be unremarkable no obvious varices noted in the esophagus The stomach there was still some food residue noted in the stomach obscuring small portions of the stomach there were no gastric varices there was no evidence of blood or bleeding in the stomach the gastric mucosa appeared to be diffusely edematous with some patchy erythema consistent with mild to moderate portal gastropathy The duodenum this was normal ESTIMATED BLOOD LOSS: None SPECIMENS REMOVED: None COMPLICATIONS: None IMPRESSION: Portal gastropathy mild to moderate Residual food suggestive of gastroparesis PLAN: Continue with present supportive care Advance diet to low-salt diet Follow-up with GI post discharge Avoid drugs and alcohol If the patient becomes symptomatic with regards to her gastroparesis with complaints of bloating nausea one can use prokinetics and precautionary measures Not much to add at this point from a GI perspective we will sign off Anesthesia: MAC Surgeon: Addy Murcia Condition: stable Disposition: floor
[2018-01-12] MEDS ORDERED: Lidocaine PF 1% Inj 5 ML Syringe INFILTRATN ONE (12:00)
[2018-01-12 12:02] VITALS: TEMP 98
[2018-01-12] MEDS: Dicyclomine 10 MG Capsule PO SCH ×2 (12:30→13:54)
[2018-01-12] MEDS: Propranolol 10 MG Tablet PO SCH (12:31)
[2018-01-12 12:51] VITALS: BP 104/60; PULSE 65; RESP 16; O2SAT 98
[2018-01-12] MEDS: LORazepam 0.5 MG Tablet PO PRN (13:54)
[2018-01-12 14:36] LABS: Baso % (Auto) 0.6 % (0.0-2.0); Eos # (Auto) 0.1 th/mm3 (0.0-0.4); Eos % (Auto) 3.3 % (0.0-4.0); Hematocrit 33.2 % (35.0-46.0); Hemoglobin 10.7 gm/dL (11.6-15.3); Lymph # (Auto) 0.3 th/mm3 (1.0-4.8); Lymph % (Auto) 22.1 % (9.0-44.0); Mean Corpuscular HGB Conc 32.3 % (32.0-36.0); Mean Corpuscular Hemoglobin 26.9 pg (27.0-34.0); Mean Corpuscular Volume 83.5 fL (80.0-100.0); Mean Platelet Volume 8.9 fL (7.0-11.0); Mono # (Auto) 0.3 th/mm3 (0.0-0.9); Mono % (Auto) 16.9 % (0.0-8.0); Neut # (Auto) 0.9 th/mm3 (1.8-7.7); Neut % (Auto) 57.1 % (16.0-70.0); Platelet Count 46 th/mm3 (150-450); Red Blood Count 3.98 mil/mm3 (4.00-5.30); Red Cell Distribution Width 17.9 % (11.6-17.2); White Blood Count 1.6 th/mm3 (4.0-11.0)
[2018-01-12 14:55] LABS: Calcium 7.3 mg/dL (8.5-10.1); Carbon Dioxide 23.1 meq/L (21.0-32.0); Potassium 3.8 meq/L (3.5-5.1)
[2018-01-12 15:14] LABS: Total Protein 6.3 g/dL (6.4-8.2)
[2018-01-12 15:21] LABS: Eosinophils 4 % (0-4); Lymphocytes 11 % (9-44); Monocytes 11 % (0-8)
[2018-01-12 15:22] LABS: Platelet Morphology Normal (Normal); RBC Morphology Normal (Normal)
== END 2018-01-12 16:00 | disposition home or self-care (01) ==
LOC: NEPHCDU 23:59 → NEDA 23:59 → NEPE 23:59 → NEPHCDU 01-11 11:34
PROVIDERS: ADMIT Internal Medicine; ATTEND Internal Medicine
PROC: PANENDO (2018-01-12 11:02)